=== PATIENT | male | born 1955 | race Caucasian/White ===

== ENCOUNTER 2018-03-22 07:39 | Outpatient (CLI) | payer MEDICAID, SELFPAY ==
[2018-03-22 08:33] LABS: Abs Immature Grans 0.01 k/cumm (0.0-0.09); Absolute Basophil Count 0.01 k/cumm (0.0-0.2); Absolute Eosinophil Count 0.01 k/cumm (0.0-0.7); Absolute Lymphocyte Count 2.21 k/cumm (1.2-3.4); Absolute Monocyte Count 0.69 k/cumm (0.11-0.7); Absolute Neutrophil Count 3.64 k/cumm (1.2-6.7); Basophils % 0.2; Eosinophils % 0.2; HCT 43.6 % (40.0-50.0); HGB 14.8 g/dL (13.5-17.5); Immature Grans % 0.2; Lymphocytes % 33.6; Mean Corp. HGB Concentration 33.9 g/dL (32.0-36.0); Mean Corpuscular Hemoglobin 33.1 pg (27.0-33.0); Mean Corpuscular Volume 97.5 fL (80-95); Mean Platelet Volume 11.1 fL (8.0-11.0); Monocytes % 10.5; Neutrophils % 55.3; Platelet Count 113 x1000/uL (130-400); RBC 4.47 m/cumm (4.50-6.00); RBC Distribution Width 13.6 % (11.8-14.1); White Blood Cell Count 6.57 k/cumm (4.4-10.8)
[2018-03-22 08:40] LABS: ALT 58 U/L (12-78); AST 21 U/L (15-37); Albumin 3.4 g/dL (3.4-5.0); Alkaline Phosphatase 76 U/L (46-116); Anion Gap 5.1 mmol/L (3-11); BUN 16 mg/dL (7-18); Bilirubin, Total 0.5 mg/dL (0.2-1.0); CO2 31.9 mmol/L (21.0-32.0); CREATININE 0.95 mg/dL (0.70-1.30); Calcium 8.7 mg/dL (8.5-10.1); Chloride 105 mmol/L (98-107); Glucose 104 mg/dL (70-100); Potassium 3.8 mmol/L (3.5-5.1); Sodium 142 mmol/L (136-145); Total Protein 7.2 g/dL (6.4-8.2)
== END 2018-03-22 07:40 ==
PROVIDERS: PCP Nurse Practitioner Family; Visit Provider Internal Medicine
DX: C90.00 Multiple myeloma not having achieved remission (principal)
CPT/HCPCS: 36415; 80053; 85025

== ENCOUNTER 2018-03-25 14:01 | Outpatient (CLI) | payer MEDICAID, SELFPAY ==
[2018-03-25 14:37] LABS: Abs Immature Grans 0.01 k/cumm (0.0-0.09); Absolute Basophil Count 0.01 k/cumm (0.0-0.2); Absolute Lymphocyte Count 2.61 k/cumm (1.2-3.4); Absolute Monocyte Count 0.88 k/cumm (0.11-0.7); Absolute Neutrophil Count 3.13 k/cumm (1.2-6.7); Basophils % 0.2; HCT 43.3 % (40.0-50.0); Immature Grans % 0.2; Lymphocytes % 39.3; Mean Corp. HGB Concentration 34.6 g/dL (32.0-36.0); Mean Corpuscular Hemoglobin 33.1 pg (27.0-33.0); Mean Corpuscular Volume 95.6 fL (80-95); Mean Platelet Volume 10.7 fL (8.0-11.0); Monocytes % 13.3; Platelet Count 115 x1000/uL (130-400); RBC 4.53 m/cumm (4.50-6.00); RBC Distribution Width 13.4 % (11.8-14.1); White Blood Cell Count 6.64 k/cumm (4.4-10.8)
[2018-03-25 15:00] LABS: ALT 46 U/L (12-78); AST 20 U/L (15-37); Albumin 3.4 g/dL (3.4-5.0); Alkaline Phosphatase 60 U/L (46-116); Anion Gap 9.3 mmol/L (3-11); BUN 15 mg/dL (7-18); Bilirubin, Total 0.8 mg/dL (0.2-1.0); CO2 27.7 mmol/L (21.0-32.0); CREATININE 1.02 mg/dL (0.70-1.30); Calcium 8.7 mg/dL (8.5-10.1); Chloride 105 mmol/L (98-107); Glucose 108 mg/dL (70-100); Sodium 142 mmol/L (136-145); Total Protein 6.8 g/dL (6.4-8.2)
[2018-03-27 10:43] LABS: IgA 15 mg/dL (85-499); IgG 1226 mg/dL (610-1616); IgM <12 mg/dL (35-242); Kappa Free Light Chain 0.47 mg/dl (0.33-1.94); Lambda Free Light Chain <0.44 mg/dl (0.57-2.63)
[2018-03-27 13:58] LABS: Albumin 55.2 % (55.8-66.1); Monoclonal Spike 13.3 %; Total Protein 6.5 g/dl (6.3-8.2)
[2018-03-28 15:06] LABS: Immunotyping, Serum Interpretation:
== END 2018-03-25 14:02 ==
PROVIDERS: PCP Nurse Practitioner Family; Visit Provider Internal Medicine
DX: C90.00 Multiple myeloma not having achieved remission (principal)
CPT/HCPCS: 36415; 80053; 82784; 83883; 84165; 85025; 86320

== ENCOUNTER 2018-03-29 07:09 | Outpatient (CLI) | payer MEDICAID, SELFPAY ==
[2018-03-29 07:43] LABS: Abs Immature Grans 0.01 k/cumm (0.0-0.09); Absolute Basophil Count 0.01 k/cumm (0.0-0.2); Absolute Eosinophil Count 0.05 k/cumm (0.0-0.7); Absolute Lymphocyte Count 2.24 k/cumm (1.2-3.4); Absolute Monocyte Count 0.66 k/cumm (0.11-0.7); Absolute Neutrophil Count 3.91 k/cumm (1.2-6.7); Basophils % 0.1; Eosinophils % 0.7; HGB 14.6 g/dL (13.5-17.5); Immature Grans % 0.1; Lymphocytes % 32.6; Mean Corp. HGB Concentration 34.8 g/dL (32.0-36.0); Mean Platelet Volume 10.4 fL (8.0-11.0); Monocytes % 9.6; Neutrophils % 56.9; Platelet Count 139 x1000/uL (130-400); RBC 4.42 m/cumm (4.50-6.00); RBC Distribution Width 13.1 % (11.8-14.1); White Blood Cell Count 6.88 k/cumm (4.4-10.8)
[2018-03-29 07:57] LABS: ALT 42 U/L (12-78); AST 22 U/L (15-37); Albumin 3.3 g/dL (3.4-5.0); Alkaline Phosphatase 74 U/L (46-116); Anion Gap 7.2 mmol/L (3-11); BUN 14 mg/dL (7-18); Bilirubin, Total 0.6 mg/dL (0.2-1.0); CO2 28.8 mmol/L (21.0-32.0); CREATININE 1.06 mg/dL (0.70-1.30); Calcium 8.7 mg/dL (8.5-10.1); Chloride 104 mmol/L (98-107); Glucose 142 mg/dL (70-100); Magnesium 1.8 mg/dL (1.8-2.4); Potassium 4.1 mmol/L (3.5-5.1); Sodium 140 mmol/L (136-145); Total Protein 7.1 g/dL (6.4-8.2)
== END 2018-03-29 07:10 ==
PROVIDERS: PCP Nurse Practitioner Family; Visit Provider Internal Medicine
DX: C90.00 Multiple myeloma not having achieved remission (principal)
CPT/HCPCS: 36415; 80053; 83735; 85025

== ENCOUNTER 2018-04-05 07:27 | Outpatient (CLI) | payer MEDICAID, SELFPAY ==
[2018-04-05 07:59] LABS: Abs Immature Grans 0.01 k/cumm (0.0-0.09); Absolute Basophil Count 0.01 k/cumm (0.0-0.2); Absolute Eosinophil Count 0.16 k/cumm (0.0-0.7); Absolute Lymphocyte Count 2.41 k/cumm (1.2-3.4); Absolute Monocyte Count 0.59 k/cumm (0.11-0.7); Absolute Neutrophil Count 3.13 k/cumm (1.2-6.7); Basophils % 0.2; Eosinophils % 2.5; HCT 41.5 % (40.0-50.0); HGB 14.4 g/dL (13.5-17.5); Immature Grans % 0.2; Lymphocytes % 38.2; Mean Corp. HGB Concentration 34.7 g/dL (32.0-36.0); Mean Corpuscular Hemoglobin 32.7 pg (27.0-33.0); Mean Corpuscular Volume 94.3 fL (80-95); Mean Platelet Volume 10.7 fL (8.0-11.0); Monocytes % 9.4; Neutrophils % 49.5; Platelet Count 126 x1000/uL (130-400); RBC Distribution Width 13.2 % (11.8-14.1); White Blood Cell Count 6.31 k/cumm (4.4-10.8)
[2018-04-05 08:10] LABS: ALT 34 U/L (12-78); AST 18 U/L (15-37); Albumin 3.3 g/dL (3.4-5.0); Alkaline Phosphatase 62 U/L (46-116); Anion Gap 7.5 mmol/L (3-11); BUN 20 mg/dL (7-18); Bilirubin, Total 0.8 mg/dL (0.2-1.0); CO2 28.5 mmol/L (21.0-32.0); CREATININE 1.03 mg/dL (0.70-1.30); Calcium 8.6 mg/dL (8.5-10.1); Chloride 104 mmol/L (98-107); Glucose 118 mg/dL (70-100); Magnesium 1.7 mg/dL (1.8-2.4); Potassium 3.8 mmol/L (3.5-5.1); Sodium 140 mmol/L (136-145); Total Protein 6.9 g/dL (6.4-8.2)
== END 2018-04-05 07:28 ==
PROVIDERS: PCP Nurse Practitioner Family; Visit Provider Internal Medicine
DX: C90.00 Multiple myeloma not having achieved remission (principal)
CPT/HCPCS: 36415; 80053; 83735; 85025

== ENCOUNTER 2018-04-19 07:27 | Outpatient (CLI) | payer MEDICAID, SELFPAY ==
[2018-04-19 07:54] LABS: Abs Immature Grans 0.01 k/cumm (0.0-0.09); Absolute Basophil Count 0.01 k/cumm (0.0-0.2); Absolute Eosinophil Count 0.14 k/cumm (0.0-0.7); Absolute Lymphocyte Count 1.85 k/cumm (1.2-3.4); Absolute Monocyte Count 0.49 k/cumm (0.11-0.7); Absolute Neutrophil Count 2.68 k/cumm (1.2-6.7); Basophils % 0.2; Eosinophils % 2.7; HCT 39.6 % (40.0-50.0); HGB 13.6 g/dL (13.5-17.5); Immature Grans % 0.2; Lymphocytes % 35.7; Mean Corp. HGB Concentration 34.3 g/dL (32.0-36.0); Mean Corpuscular Hemoglobin 32.9 pg (27.0-33.0); Mean Corpuscular Volume 95.7 fL (80-95); Mean Platelet Volume 11.1 fL (8.0-11.0); Monocytes % 9.5; Neutrophils % 51.7; Platelet Count 104 x1000/uL (130-400); RBC 4.14 m/cumm (4.50-6.00); White Blood Cell Count 5.18 k/cumm (4.4-10.8)
[2018-04-19 08:02] LABS: ALT 38 U/L (12-78); AST 25 U/L (15-37); Albumin 3.2 g/dL (3.4-5.0); Alkaline Phosphatase 65 U/L (46-116); Anion Gap 6.7 mmol/L (3-11); BUN 12 mg/dL (7-18); Bilirubin, Total 0.5 mg/dL (0.2-1.0); CO2 27.3 mmol/L (21.0-32.0); Calcium 8.1 mg/dL (8.5-10.1); Chloride 108 mmol/L (98-107); Glucose 116 mg/dL (70-100); Magnesium 1.9 mg/dL (1.8-2.4); Potassium 3.8 mmol/L (3.5-5.1); Sodium 142 mmol/L (136-145); Total Protein 6.7 g/dL (6.4-8.2)
== END 2018-04-19 07:28 ==
PROVIDERS: PCP Nurse Practitioner Family; Visit Provider Internal Medicine
DX: C90.00 Multiple myeloma not having achieved remission (principal)
CPT/HCPCS: 36415; 80053; 83735; 85025

== ENCOUNTER 2018-05-03 07:19 | Outpatient (CLI) | payer MEDICAID, SELFPAY ==
[2018-05-03 07:50] LABS: Abs Immature Grans 0.01 k/cumm (0.0-0.09); Absolute Basophil Count 0.01 k/cumm (0.0-0.2); Absolute Eosinophil Count 0.04 k/cumm (0.0-0.7); Absolute Lymphocyte Count 2.24 k/cumm (1.2-3.4); Absolute Monocyte Count 0.74 k/cumm (0.11-0.7); Absolute Neutrophil Count 3.79 k/cumm (1.2-6.7); Basophils % 0.1; Eosinophils % 0.6; HCT 44.6 % (40.0-50.0); HGB 15.3 g/dL (13.5-17.5); Immature Grans % 0.1; Lymphocytes % 32.8; Mean Corp. HGB Concentration 34.3 g/dL (32.0-36.0); Mean Corpuscular Hemoglobin 32.8 pg (27.0-33.0); Mean Corpuscular Volume 95.5 fL (80-95); Monocytes % 10.8; Neutrophils % 55.6; Platelet Count 147 x1000/uL (130-400); RBC 4.67 m/cumm (4.50-6.00); White Blood Cell Count 6.83 k/cumm (4.4-10.8)
[2018-05-03 08:04] LABS: ALT 47 U/L (12-78); AST 28 U/L (15-37); Albumin 3.6 g/dL (3.4-5.0); Alkaline Phosphatase 72 U/L (46-116); Anion Gap 9.4 mmol/L (3-11); BUN 12 mg/dL (7-18); Bilirubin, Total 1.2 mg/dL (0.2-1.0); CO2 27.6 mmol/L (21.0-32.0); CREATININE 0.94 mg/dL (0.70-1.30); Calcium 8.9 mg/dL (8.5-10.1); Chloride 105 mmol/L (98-107); Glucose 124 mg/dL (70-100); Potassium 4.2 mmol/L (3.5-5.1); Sodium 142 mmol/L (136-145); Total Protein 7.5 g/dL (6.4-8.2)
[2018-05-06 10:53] LABS: IgA 15 mg/dL (85-499); IgG 1219 mg/dL (610-1616); IgM <12 mg/dL (35-242); Kappa Free Light Chain 0.54 mg/dl (0.33-1.94); Lambda Free Light Chain <0.44 mg/dl (0.57-2.63)
[2018-05-06 14:58] LABS: Albumin 58.5 % (55.8-66.1); Monoclonal Spike 13.4 %; Total Protein 6.9 g/dl (6.3-8.2)
== END 2018-05-03 07:39 ==
PROVIDERS: PCP Nurse Practitioner Family; Visit Provider Internal Medicine
DX: C90.00 Multiple myeloma not having achieved remission (principal)
CPT/HCPCS: 36415; 80053; 82784; 83883; 84165; 85025

== ENCOUNTER 2018-05-17 07:04 | Outpatient (CLI) | payer MEDICAID, SELFPAY ==
[2018-05-17 07:36] LABS: Abs Immature Grans 0.02 k/cumm (0.0-0.09); Absolute Basophil Count 0.01 k/cumm (0.0-0.2); Absolute Eosinophil Count 0.07 k/cumm (0.0-0.7); Absolute Lymphocyte Count 2.27 k/cumm (1.2-3.4); Absolute Monocyte Count 1.08 k/cumm (0.11-0.7); Absolute Neutrophil Count 5.56 k/cumm (1.2-6.7); Basophils % 0.1; Eosinophils % 0.8; HCT 40.4 % (40.0-50.0); HGB 13.8 g/dL (13.5-17.5); Immature Grans % 0.2; Lymphocytes % 25.2; Mean Corp. HGB Concentration 34.2 g/dL (32.0-36.0); Mean Corpuscular Hemoglobin 33.2 pg (27.0-33.0); Mean Corpuscular Volume 97.1 fL (80-95); Mean Platelet Volume 11.3 fL (8.0-11.0); Neutrophils % 61.7; Platelet Count 127 x1000/uL (130-400); RBC 4.16 m/cumm (4.50-6.00); RBC Distribution Width 13.2 % (11.8-14.1); White Blood Cell Count 9.01 k/cumm (4.4-10.8)
[2018-05-17 07:44] LABS: ALT 38 U/L (12-78); AST 20 U/L (15-37); Albumin 3.3 g/dL (3.4-5.0); Alkaline Phosphatase 72 U/L (46-116); Anion Gap 8.2 mmol/L (3-11); BUN 15 mg/dL (7-18); Bilirubin, Total 0.7 mg/dL (0.2-1.0); CO2 26.8 mmol/L (21.0-32.0); CREATININE 0.95 mg/dL (0.70-1.30); Calcium 8.7 mg/dL (8.5-10.1); Chloride 106 mmol/L (98-107); Glucose 116 mg/dL (70-100); Magnesium 1.7 mg/dL (1.8-2.4); Potassium 3.8 mmol/L (3.5-5.1); Sodium 141 mmol/L (136-145); Total Protein 6.8 g/dL (6.4-8.2)
== END 2018-05-17 07:24 ==
PROVIDERS: PCP Nurse Practitioner Family; Visit Provider Internal Medicine
DX: C90.00 Multiple myeloma not having achieved remission (principal)
CPT/HCPCS: 36415; 80053; 83735; 85025

== ENCOUNTER 2018-05-31 07:04 | Outpatient (CLI) | payer MEDICAID, SELFPAY ==
[2018-05-31 07:37] LABS: Abs Immature Grans 0.01 k/cumm (0.0-0.09); Absolute Basophil Count 0.01 k/cumm (0.0-0.2); Absolute Eosinophil Count 0.23 k/cumm (0.0-0.7); Absolute Lymphocyte Count 1.76 k/cumm (1.2-3.4); Absolute Monocyte Count 0.63 k/cumm (0.11-0.7); Absolute Neutrophil Count 2.95 k/cumm (1.2-6.7); Basophils % 0.2; Eosinophils % 4.1; HCT 40.9 % (40.0-50.0); HGB 13.9 g/dL (13.5-17.5); Immature Grans % 0.2; Lymphocytes % 31.5; Mean Corpuscular Hemoglobin 33.1 pg (27.0-33.0); Mean Corpuscular Volume 97.4 fL (80-95); Mean Platelet Volume 10.5 fL (8.0-11.0); Monocytes % 11.3; Neutrophils % 52.7; Platelet Count 129 x1000/uL (130-400); RBC Distribution Width 13.1 % (11.8-14.1); White Blood Cell Count 5.59 k/cumm (4.4-10.8)
[2018-05-31 07:56] LABS: ALT 42 U/L (12-78); AST 28 U/L (15-37); Albumin 3.3 g/dL (3.4-5.0); Alkaline Phosphatase 70 U/L (46-116); Anion Gap 7.4 mmol/L (3-11); BUN 11 mg/dL (7-18); Bilirubin, Total 0.5 mg/dL (0.2-1.0); CO2 28.6 mmol/L (21.0-32.0); CREATININE 0.84 mg/dL (0.70-1.30); Calcium 8.7 mg/dL (8.5-10.1); Chloride 106 mmol/L (98-107); Glucose 123 mg/dL (70-100); Magnesium 1.7 mg/dL (1.8-2.4); Potassium 3.9 mmol/L (3.5-5.1); Sodium 142 mmol/L (136-145); Total Protein 6.8 g/dL (6.4-8.2)
== END 2018-05-31 07:24 ==
PROVIDERS: PCP Nurse Practitioner Family; Visit Provider Internal Medicine
DX: C90.00 Multiple myeloma not having achieved remission (principal)
CPT/HCPCS: 36415; 80053; 83735; 85025

== ENCOUNTER 2018-06-21 07:10 | Outpatient (CLI) | payer MEDICAID, SELFPAY ==
[2018-06-21 07:37] LABS: Absolute Basophil Count 0.01 k/cumm (0.0-0.2); Absolute Eosinophil Count 0.22 k/cumm (0.0-0.7); Absolute Lymphocyte Count 1.97 k/cumm (1.2-3.4); Absolute Neutrophil Count 3.01 k/cumm (1.2-6.7); Basophils % 0.2; Eosinophils % 3.7; HCT 43.6 % (40.0-50.0); HGB 15.3 g/dL (13.5-17.5); Lymphocytes % 33.3; Mean Corp. HGB Concentration 35.1 g/dL (32.0-36.0); Mean Corpuscular Hemoglobin 33.1 pg (27.0-33.0); Mean Corpuscular Volume 94.4 fL (80-95); Mean Platelet Volume 10.9 fL (8.0-11.0); Monocytes % 11.8; Platelet Count 142 x1000/uL (130-400); RBC 4.62 m/cumm (4.50-6.00); RBC Distribution Width 12.2 % (11.8-14.1); White Blood Cell Count 5.91 k/cumm (4.4-10.8)
[2018-06-21 07:58] LABS: ALT 48 U/L (12-78); AST 32 U/L (15-37); Albumin 3.5 g/dL (3.4-5.0); Alkaline Phosphatase 76 U/L (46-116); Anion Gap 9.1 mmol/L (3-11); BUN 15 mg/dL (7-18); Bilirubin, Total 0.7 mg/dL (0.2-1.0); CO2 27.9 mmol/L (21.0-32.0); Calcium 9.2 mg/dL (8.5-10.1); Chloride 103 mmol/L (98-107); Glucose 126 mg/dL (70-100); Magnesium 1.7 mg/dL (1.8-2.4); Potassium 4.3 mmol/L (3.5-5.1); Sodium 140 mmol/L (136-145); Total Protein 7.2 g/dL (6.4-8.2)
== END 2018-06-21 07:30 ==
PROVIDERS: PCP Nurse Practitioner Family; Visit Provider Internal Medicine
DX: C90.00 Multiple myeloma not having achieved remission (principal)
CPT/HCPCS: 36415; 80053; 83735; 85025

== ENCOUNTER 2018-07-05 07:07 | Outpatient (CLI) | payer MEDICAID, SELFPAY ==
[2018-07-05 07:44] LABS: Abs Immature Grans 0.01 k/cumm (0.0-0.09); Absolute Basophil Count 0.01 k/cumm (0.0-0.2); Absolute Lymphocyte Count 1.91 k/cumm (1.2-3.4); Absolute Monocyte Count 0.69 k/cumm (0.11-0.7); Absolute Neutrophil Count 3.62 k/cumm (1.2-6.7); Basophils % 0.2; Eosinophils % 3.1; HCT 43.8 % (40.0-50.0); HGB 15.1 g/dL (13.5-17.5); Immature Grans % 0.2; Lymphocytes % 29.7; Mean Corp. HGB Concentration 34.5 g/dL (32.0-36.0); Mean Corpuscular Volume 95.6 fL (80-95); Mean Platelet Volume 11.4 fL (8.0-11.0); Monocytes % 10.7; Neutrophils % 56.1; Platelet Count 144 x1000/uL (130-400); RBC 4.58 m/cumm (4.50-6.00); RBC Distribution Width 12.4 % (11.8-14.1); White Blood Cell Count 6.44 k/cumm (4.4-10.8)
[2018-07-05 07:54] LABS: ALT 59 U/L (12-78); AST 36 U/L (15-37); Albumin 3.4 g/dL (3.4-5.0); Alkaline Phosphatase 73 U/L (46-116); Anion Gap 6.3 mmol/L (3-11); BUN 12 mg/dL (7-18); Bilirubin, Total 0.4 mg/dL (0.2-1.0); CO2 26.7 mmol/L (21.0-32.0); CREATININE 0.97 mg/dL (0.70-1.30); Calcium 8.9 mg/dL (8.5-10.1); Chloride 105 mmol/L (98-107); Glucose 107 mg/dL (70-100); Magnesium 1.8 mg/dL (1.8-2.4); Sodium 138 mmol/L (136-145); Total Protein 7.1 g/dL (6.4-8.2)
[2018-07-08 10:30] LABS: Vitamin D 25 Total 33.3 ng/ml (30-100)
== END 2018-07-05 07:27 ==
PROVIDERS: PCP Nurse Practitioner Family; Visit Provider Internal Medicine
DX: E55.9 Vitamin D deficiency, unspecified (principal); C90.00 Multiple myeloma not having achieved remission
CPT/HCPCS: 36415; 80053; 82306; 83735; 85025

== ENCOUNTER 2018-07-19 07:13 | Outpatient (CLI) | payer MEDICAID, SELFPAY ==
[2018-07-19 07:37] LABS: Abs Immature Grans 0.02 k/cumm (0.0-0.09); Absolute Basophil Count 0.02 k/cumm (0.0-0.2); Absolute Eosinophil Count 0.14 k/cumm (0.0-0.7); Absolute Monocyte Count 0.47 k/cumm (0.11-0.7); Basophils % 0.3; Eosinophils % 2.1; HCT 44.1 % (40.0-50.0); HGB 15.1 g/dL (13.5-17.5); Immature Grans % 0.3; Lymphocytes % 22.6; Mean Corp. HGB Concentration 34.2 g/dL (32.0-36.0); Mean Corpuscular Hemoglobin 32.2 pg (27.0-33.0); Mean Platelet Volume 11.6 fL (8.0-11.0); Monocytes % 7.1; Neutrophils % 67.6; Platelet Count 136 x1000/uL (130-400); RBC 4.69 m/cumm (4.50-6.00); RBC Distribution Width 12.5 % (11.8-14.1); White Blood Cell Count 6.65 k/cumm (4.4-10.8)
[2018-07-19 08:01] LABS: ALT 56 U/L (12-78); AST 32 U/L (15-37); Albumin 3.5 g/dL (3.4-5.0); Alkaline Phosphatase 69 U/L (46-116); Anion Gap 9.9 mmol/L (3-11); BUN 10 mg/dL (7-18); Bilirubin, Total 0.6 mg/dL (0.2-1.0); CO2 25.1 mmol/L (21.0-32.0); CREATININE 0.96 mg/dL (0.70-1.30); Calcium 8.9 mg/dL (8.5-10.1); Chloride 105 mmol/L (98-107); Glucose 134 mg/dL (70-100); Magnesium 1.8 mg/dL (1.8-2.4); Potassium 3.9 mmol/L (3.5-5.1); Sodium 140 mmol/L (136-145); Total Protein 7.2 g/dL (6.4-8.2)
== END 2018-07-19 07:33 ==
PROVIDERS: PCP Nurse Practitioner Family; Visit Provider Internal Medicine
DX: C90.00 Multiple myeloma not having achieved remission (principal)
CPT/HCPCS: 36415; 80053; 83735; 85025

== ENCOUNTER 2018-08-02 07:04 | Outpatient (CLI) | payer MEDICAID, SELFPAY ==
[2018-08-02 07:40] LABS: Abs Immature Grans 0.01 k/cumm (0.0-0.09); Absolute Basophil Count 0.01 k/cumm (0.0-0.2); Absolute Lymphocyte Count 2.13 k/cumm (1.2-3.4); Absolute Monocyte Count 0.74 k/cumm (0.11-0.7); Absolute Neutrophil Count 3.88 k/cumm (1.2-6.7); Basophils % 0.1; Eosinophils % 2.9; HCT 45.5 % (40.0-50.0); HGB 15.6 g/dL (13.5-17.5); Immature Grans % 0.1; Lymphocytes % 30.6; Mean Corp. HGB Concentration 34.3 g/dL (32.0-36.0); Mean Corpuscular Hemoglobin 31.9 pg (27.0-33.0); Mean Platelet Volume 11.5 fL (8.0-11.0); Monocytes % 10.6; Neutrophils % 55.7; Platelet Count 142 x1000/uL (130-400); RBC 4.89 m/cumm (4.50-6.00); RBC Distribution Width 12.6 % (11.8-14.1); White Blood Cell Count 6.97 k/cumm (4.4-10.8)
[2018-08-02 07:45] LABS: ALT 65 U/L (12-78); AST 36 U/L (15-37); Albumin 3.4 g/dL (3.4-5.0); Alkaline Phosphatase 80 U/L (46-116); Anion Gap 9.5 mmol/L (3-11); BUN 13 mg/dL (7-18); Bilirubin, Total 0.7 mg/dL (0.2-1.0); CO2 27.5 mmol/L (21.0-32.0); Calcium 9.2 mg/dL (8.5-10.1); Chloride 105 mmol/L (98-107); Glucose 120 mg/dL (70-100); Magnesium 1.8 mg/dL (1.8-2.4); Sodium 142 mmol/L (136-145); Total Protein 7.2 g/dL (6.4-8.2)
== END 2018-08-02 07:24 ==
PROVIDERS: PCP Nurse Practitioner Family; Visit Provider Internal Medicine
DX: C90.00 Multiple myeloma not having achieved remission (principal)
CPT/HCPCS: 36415; 80053; 83735; 85025

== ENCOUNTER 2018-08-30 07:02 | Outpatient (CLI) | payer MEDICAID, SELFPAY ==
[2018-08-30 07:28] LABS: Abs Immature Grans 0.02 k/cumm (0.0-0.09); Absolute Basophil Count 0.02 k/cumm (0.0-0.2); Absolute Lymphocyte Count 2.23 k/cumm (1.2-3.4); Absolute Monocyte Count 0.69 k/cumm (0.11-0.7); Absolute Neutrophil Count 3.03 k/cumm (1.2-6.7); Basophils % 0.3; Eosinophils % 3.2; HCT 42.6 % (40.0-50.0); HGB 14.5 g/dL (13.5-17.5); Immature Grans % 0.3; Mean Platelet Volume 11.3 fL (8.0-11.0); Monocytes % 11.1; Neutrophils % 49.1; Platelet Count 147 x1000/uL (130-400); RBC 4.53 m/cumm (4.50-6.00); RBC Distribution Width 13.4 % (11.8-14.1); White Blood Cell Count 6.19 k/cumm (4.4-10.8)
[2018-08-30 07:40] LABS: ALT 49 U/L (12-78); AST 29 U/L (15-37); Albumin 3.2 g/dL (3.4-5.0); Alkaline Phosphatase 80 U/L (46-116); Anion Gap 6.6 mmol/L (3-11); BUN 13 mg/dL (7-18); Bilirubin, Total 0.4 mg/dL (0.2-1.0); CO2 29.4 mmol/L (21.0-32.0); Calcium 9.1 mg/dL (8.5-10.1); Chloride 106 mmol/L (98-107); Glucose 110 mg/dL (70-100); Magnesium 1.8 mg/dL (1.8-2.4); Potassium 4.1 mmol/L (3.5-5.1); Sodium 142 mmol/L (136-145); Total Protein 6.7 g/dL (6.4-8.2)
== END 2018-08-30 07:22 ==
PROVIDERS: PCP Nurse Practitioner Family; Visit Provider Internal Medicine
DX: C90.00 Multiple myeloma not having achieved remission (principal)
CPT/HCPCS: 36415; 80053; 83735; 85025

== ENCOUNTER 2018-09-27 06:57 | Outpatient (CLI) | payer MEDICAID, SELFPAY ==
[2018-09-27 07:30] LABS: Abs Immature Grans 0.01 k/cumm (0.0-0.09); Absolute Basophil Count 0.03 k/cumm (0.0-0.2); Absolute Lymphocyte Count 1.79 k/cumm (1.2-3.4); Absolute Monocyte Count 0.54 k/cumm (0.11-0.7); Absolute Neutrophil Count 3.75 k/cumm (1.2-6.7); Basophils % 0.5; Eosinophils % 3.2; HCT 46.6 % (40.0-50.0); HGB 15.7 g/dL (13.5-17.5); Immature Grans % 0.2; Lymphocytes % 28.3; Mean Corp. HGB Concentration 33.7 g/dL (32.0-36.0); Mean Corpuscular Hemoglobin 31.4 pg (27.0-33.0); Mean Corpuscular Volume 93.2 fL (80-95); Monocytes % 8.5; Neutrophils % 59.3; Platelet Count 143 x1000/uL (130-400); RBC Distribution Width 13.6 % (11.8-14.1); White Blood Cell Count 6.32 k/cumm (4.4-10.8)
[2018-09-27 07:43] LABS: ALT 44 U/L (12-78); AST 27 U/L (15-37); Albumin 3.5 g/dL (3.4-5.0); Alkaline Phosphatase 78 U/L (46-116); Anion Gap 4.8 mmol/L (3-11); BUN 10 mg/dL (7-18); Bilirubin, Total 0.7 mg/dL (0.2-1.0); CO2 29.2 mmol/L (21.0-32.0); CREATININE 1.09 mg/dL (0.70-1.30); Chloride 105 mmol/L (98-107); Glucose 182 mg/dL (70-100); Magnesium 1.7 mg/dL (1.8-2.4); Potassium 3.9 mmol/L (3.5-5.1); Sodium 139 mmol/L (136-145); Total Protein 7.5 g/dL (6.4-8.2)
== END 2018-09-27 07:17 ==
PROVIDERS: PCP Nurse Practitioner Family; Visit Provider Internal Medicine
DX: C90.00 Multiple myeloma not having achieved remission (principal)
CPT/HCPCS: 36415; 80053; 83735; 85025

== ENCOUNTER 2018-10-24 07:05 | Outpatient (CLI) | payer MEDICAID, SELFPAY ==
[2018-10-24 07:29] LABS: Absolute Basophil Count 0.01 k/cumm (0.0-0.2); Absolute Eosinophil Count 0.13 k/cumm (0.0-0.7); Absolute Lymphocyte Count 1.58 k/cumm (1.2-3.4); Absolute Neutrophil Count 3.06 k/cumm (1.2-6.7); Basophils % 0.2; Eosinophils % 2.5; HCT 46.8 % (40.0-50.0); Lymphocytes % 29.9; Mean Corp. HGB Concentration 34.2 g/dL (32.0-36.0); Mean Corpuscular Hemoglobin 31.4 pg (27.0-33.0); Mean Corpuscular Volume 91.9 fL (80-95); Mean Platelet Volume 11.7 fL (8.0-11.0); Monocytes % 9.5; Neutrophils % 57.9; Platelet Count 141 x1000/uL (130-400); RBC 5.09 m/cumm (4.50-6.00); RBC Distribution Width 13.5 % (11.8-14.1); White Blood Cell Count 5.28 k/cumm (4.4-10.8)
[2018-10-24 07:50] LABS: ALT 57 U/L (12-78); AST 34 U/L (15-37); Albumin 3.7 g/dL (3.4-5.0); Alkaline Phosphatase 85 U/L (46-116); Anion Gap 8.4 mmol/L (3-11); BUN 8 mg/dL (7-18); Bilirubin, Total 0.8 mg/dL (0.2-1.0); CO2 27.6 mmol/L (21.0-32.0); CREATININE 0.98 mg/dL (0.70-1.30); Chloride 105 mmol/L (98-107); Glucose 120 mg/dL (70-100); Magnesium 1.6 mg/dL (1.8-2.4); Potassium 4.1 mmol/L (3.5-5.1); Sodium 141 mmol/L (136-145); Total Protein 7.6 g/dL (6.4-8.2)
== END 2018-10-24 07:25 ==
PROVIDERS: PCP Nurse Practitioner Family; Visit Provider Internal Medicine
DX: C90.00 Multiple myeloma not having achieved remission (principal)
CPT/HCPCS: 36415; 80053; 83735; 85025

== ENCOUNTER 2018-11-22 07:06 | Outpatient (CLI) | payer MEDICAID, SELFPAY ==
[2018-11-22 07:22] LABS: Absolute Basophil Count 0.01 k/cumm (0.0-0.2); Absolute Lymphocyte Count 2.58 k/cumm (1.2-3.4); Absolute Monocyte Count 0.78 k/cumm (0.11-0.7); Absolute Neutrophil Count 3.46 k/cumm (1.2-6.7); Basophils % 0.1; HCT 44.2 % (40.0-50.0); Lymphocytes % 37.8; Mean Corp. HGB Concentration 33.9 g/dL (32.0-36.0); Mean Corpuscular Hemoglobin 31.7 pg (27.0-33.0); Mean Corpuscular Volume 93.4 fL (80-95); Mean Platelet Volume 11.9 fL (8.0-11.0); Monocytes % 11.4; Neutrophils % 50.7; Platelet Count 145 x1000/uL (130-400); RBC 4.73 m/cumm (4.50-6.00); RBC Distribution Width 13.2 % (11.8-14.1); White Blood Cell Count 6.83 k/cumm (4.4-10.8)
[2018-11-22 07:41] LABS: ALT 58 U/L (12-78); AST 36 U/L (15-37); Albumin 3.4 g/dL (3.4-5.0); Alkaline Phosphatase 84 U/L (46-116); Anion Gap 8.1 mmol/L (3-11); BUN 11 mg/dL (7-18); Bilirubin, Total 0.5 mg/dL (0.2-1.0); CO2 26.9 mmol/L (21.0-32.0); CREATININE 0.92 mg/dL (0.70-1.30); Calcium 8.7 mg/dL (8.5-10.1); Chloride 104 mmol/L (98-107); Glucose 104 mg/dL (70-100); Magnesium 2.1 mg/dL (1.8-2.4); Sodium 139 mmol/L (136-145); Total Protein 7.2 g/dL (6.4-8.2)
== END 2018-11-22 07:26 ==
PROVIDERS: PCP Nurse Practitioner Family; Visit Provider Internal Medicine
DX: C90.00 Multiple myeloma not having achieved remission (principal)
CPT/HCPCS: 36415; 80053; 83735; 85025

== ENCOUNTER 2018-12-20 07:06 | Outpatient (CLI) | payer MEDICAID, SELFPAY ==
[2018-12-20 07:29] LABS: Abs Immature Grans 0.01 k/cumm (0.0-0.09); Absolute Basophil Count 0.01 k/cumm (0.0-0.2); Absolute Eosinophil Count 0.27 k/cumm (0.0-0.7); Absolute Monocyte Count 0.72 k/cumm (0.11-0.7); Absolute Neutrophil Count 3.28 k/cumm (1.2-6.7); Basophils % 0.1; HGB 14.6 g/dL (13.5-17.5); Immature Grans % 0.1; Lymphocytes % 35.9; Mean Corpuscular Hemoglobin 31.7 pg (27.0-33.0); Mean Corpuscular Volume 93.5 fL (80-95); Mean Platelet Volume 11.6 fL (8.0-11.0); Monocytes % 10.8; Neutrophils % 49.1; Platelet Count 147 x1000/uL (130-400); RBC Distribution Width 13.1 % (11.8-14.1); White Blood Cell Count 6.69 k/cumm (4.4-10.8)
[2018-12-20 07:46] LABS: ALT 47 U/L (12-78); AST 26 U/L (15-37); Albumin 3.3 g/dL (3.4-5.0); Alkaline Phosphatase 82 U/L (46-116); Anion Gap 3.8 mmol/L (3-11); BUN 12 mg/dL (7-18); Bilirubin, Total 0.4 mg/dL (0.2-1.0); CO2 31.2 mmol/L (21.0-32.0); CREATININE 0.94 mg/dL (0.70-1.30); Calcium 8.8 mg/dL (8.5-10.1); Chloride 105 mmol/L (98-107); Glucose 123 mg/dL (70-100); Magnesium 1.8 mg/dL (1.8-2.4); Potassium 4.1 mmol/L (3.5-5.1); Sodium 140 mmol/L (136-145); Total Protein 7.1 g/dL (6.4-8.2)
== END 2018-12-20 07:26 ==
PROVIDERS: PCP Nurse Practitioner Family; Visit Provider Internal Medicine
DX: C90.00 Multiple myeloma not having achieved remission (principal)
CPT/HCPCS: 36415; 80053; 83735; 85025

== ENCOUNTER 2018-12-30 07:41 | Day surgery (SDC) | payer MEDICAID, SELFPAY ==
--- NOTE | 2018-12-29 17:48 | W.PIPPEYE ---
History of Present Illness Chief Complaint: Progressive decreased vision, left eye Narrative: The patient is a 63-year-old male with history of progressive decreased vision over the past several months in his left eye. On examination he was noted to have moderate nuclear with early posterior subcapsular cataract in the left eye with visual acuity of 20/60. The option of cataract surgery was offered to the patient and he wished to proceed. NOTE: The Chief Complaint, HPI, Past Medical History, Past Surgical History, Family History, Social History, Medications, and complete Ophthalmic Exam with detailed Assessment and Plan have already been documented in the patient's outpatient ophthalmic record and are not covered again in detail here. REPLACED BY [facility] Social History Smoking/Tobacco Use Status: Never Alcohol Intake: former Drug use: Occasionally Substance use type: marijuana Details: past hx IV drug use/ in remission Caregiver/Support person: No Communication Needs: None Pets and animals: No Current gender identity: male What type of physical activity do you participate in: none Seatbelt use: always Water heater temp set <120 deg: Yes Working smoke detector in home: Yes Fire extinguisher in home: Yes Carbon monox detector in home: Yes Firearms in home: Yes Firearms unloaded and locked: Yes Do you feel safe at home: Yes Do you feel safe in your relationship?: Yes Meds Home Medications Medication Instructions Recorded Confirmed Type zolpidem [Ambien] 10 mg PO HS tab-cap 05/02/17 12/25/18 History polyethylene glycol 3350 [Glycolax] 17 g PO DAILY PRN #1 bottle 09/07/17 12/25/18 History sennosides-docusate sodium 1 ea PO BID PRN #180 tab-cap 09/07/17 12/25/18 History [Senna-Docusate Sodium Tablet] aspirin 81 mg PO DAILY 0 Days #90 tab-cap 10/31/17 12/06/18 Rx cholecalciferol (vitamin D3) 2,000 unit PO DAILY #90 tab-cap 10/31/17 12/25/18 Rx [Vitamin D3] guaifenesin 600 - 1,200 mg PO Q12H PRN #60 10/31/17 12/25/18 Rx tab-cap MDD 2400 MG chlorhexidine gluconate 1 film TOPICAL DAILY #1 bottle 01/31/18 12/06/18 Rx melatonin 10 mg PO HS PRN #90 tab-cap 01/31/18 12/25/18 History magnesium oxide 400 mg (241.3 mg 800 mg PO DAILY #180 tab-cap 05/10/18 12/25/18 Rx magnesium) tablet clindamycin phosphate 1 % topical 1 applic TP BID PRN #60 ml 06/13/18 12/25/18 Rx solution acyclovir 400 mg tablet 400 mg PO BID tab 06/17/18 12/25/18 History enalapril maleate 20 mg tablet 20 mg PO DAILY #90 tab-cap 09/02/18 12/25/18 Rx fluticasone propionate 50 1 - 2 spray NS DAILY PRN #1 unit 12/23/18 12/25/18 Rx mcg/actuation nasal spray,suspension mupirocin 1 film TOPICAL TID PRN 12/25/18 12/25/18 History Allergies Allergy/AdvReac Type Severity Reaction Status Date / Time Sulfa (Sulfonamide Allergy Unknown told rx as Unverified 12/25/18 11:24 Antibiotics) an infant Exam OCULAR EXAM:: Most recent ocular examination is significant for visual acuity measuring 20/60 OD, 20/60 OS. Best corrected vision is 20/20 OD, 20/25 in the left eye. Intraocular pressure 16 OD, 17 OS. Pupils equal, round, and reactive without afferent pupillary defect extraocular motility is normal. Slit-lamp examination is significant for pupils dilating to 7 mm OU. 2+ nuclear cataract OU with 1+ posterior subcapsular cataract OS. Dilated funduscopic examination shows disc cupping of 0.4 OU with good color. The optic nerves have good perfusion and normal color. The retinal vasculature is normal without significant tortuosity or abnormality. The maculas are normal in appearance with normal contour and foveal reflex appropriate for age. The peripheral retina and vitreous are normal. BRIGHTNESS ACUITY TESTING (BAT):: Brightness acuity testing of the left eye office is 20/25. Low is 20/60. On the medium and high setting is 20/70. Assessment and Plan (1) Posterior subcapsular age-related cataract of left eye: Current visit: No Status: Acute Assessment: Visually significant cataract, left eye. Plan: Cataract extraction with intraocular lens implantation, left eye (2) Nuclear sclerotic cataract of left eye: Current visit: No Status: Acute Assessment: Visually significant cataract, left eye. Plan: Cataract extraction with intraocular lens implantation, left eye Note: NOTE:: The details of the planned surgery, including the risks, indications,limitations,expectations,outcome and possible complications were explained to the patient. The patient understands the complications including, but not limited to: infection, hemorrhage, posterior dislocation of the lens or nuclear fragments which may require the intervention of a vitreoretinal surgeon, possible loss of the eye, or from anesthetic complications. The patient has been made aware of the option of not having surgery, that vision following surgery may not be equal to that prior to surgery, and that the planned surgery may not achieve the intended results. Following this discussion, which the patient appeared to understand, the patient wishes to proceed with cataract surgery with lens implantation of the affected eye to improve and maximize vision.
--- NOTE | 2018-12-30 07:20 | W.PM.DSUDISC ---
Discharge Plan Disposition Patient Disposition: HOME Condition: Stable Discharge Details Attending Provider: Joshua Griffin Primary Care Provider: Olga Ramos Home Meds and New Rx's Prescriptions: No Action clindamycin phosphate 1 % solution 1 applic TP BID PRN (Reason: recurrent skin infection) Qty: 60 RF: 0 zolpidem [Ambien] 10 MG tablet 10 mg PO HS RF: 0 sennosides-docusate sodium [Senna with Docusate Sodium] 1 EACH tablet 1 ea PO BID PRNQty: 180 RF: 3 polyethylene glycol 3350 [GlycoLax] 527 GM powder 17 g PO DAILY PRNQty: 1 RF: 5 aspirin 81 MG tablet,delayed release (DR/EC) 81 mg PO DAILY 0 Days Qty: 90 RF: 3 cholecalciferol (vitamin D3) [Vitamin D3] 2,000 UNIT tablet 2,000 unit PO DAILY Qty: 90 RF: 3 guaifenesin 600 MG tablet extended release 12hr 600 - 1,200 mg PO Q12H PRN MDD 2400 MG Qty: 60 RF: 0 chlorhexidine gluconate 3,800 ML liquid 1 film Topical DAILY Qty: 1 RF: 0 melatonin 10 MG tablet 10 mg PO HS PRNQty: 90 RF: 3 magnesium oxide 400 mg (241.3 mg magnesium) tablet 800 mg PO DAILY Qty: 180 RF: 3 acyclovir 400 mg tablet 400 mg PO BID RF: 0 enalapril maleate 20 mg tablet 20 mg PO DAILY Qty: 90 RF: 3 fluticasone propionate [Flonase Allergy Relief] 50 mcg/actuation spray,suspension 1 - 2 spray NS DAILY PRN (Reason: nasal congestion) Qty: 1 RF: 6 mupirocin 22 GM ointment 1 film Topical TID PRNRF: 0 Discharge Instructions Stand Alone Forms: Post-op Topical Cataract, Geoff Ganey (DSU) Discharge Orders Discharge Orders: Discharge Order (Routine); Ordered 12/30/18 Ordered By: Joshua Griffin DS: Diagnosis Discharge Diagnosis (1) Posterior subcapsular age-related cataract of left eye: Status: Resolved (2) Nuclear sclerotic cataract of left eye: Status: Resolved (3) Status post cataract extraction and insertion of intraocular lens of left eye: Status: Chronic
--- NOTE | 2018-12-30 07:21 | W.PM.OP ---
Date of service: 12/30/18 Time of Service: 09:37 Operative Note PRE-OP DIAGNOSIS: Cataract, left eye POST-OP DIAGNOSIS: same PROCEDURE: Cataract extraction using phacoemulsification with intraocular lens implant, left eye SURGEON: Joshua Griffin ANESTHESIA: MAC and local (sub-tenon's anesthetic infiltration) PATHOLOGY: none sent COMPLICATIONS: None Patient was transported to: same day Patient's condition: stable Implants: [employer] / [employer] Tecnis ZCB00 Indications: Progressive decreased vision due to cataract, left eye Procedure Description: CATARACT SURGERY OPERATIVE REPORT PREOPERATIVE DIAGNOSIS: Nuclear/posterior subcapsular cataract, left eye POSTOPERATIVE DIAGNOSIS: Same OPERATION: Cataract extraction using phacoemulsification with posterior chamber intraocular lens implant, left eye. IOL: IOL Program Host/Model: [employer] / CAROLINE Tecnis ZCB00 IOL Power: + 19.50 diopters IOL Serial Number: [id number] Optic Diameter: 6.0mm Haptic/Overall Diameter: 13.0mm PHACO INFO: [employer] Part[employer]erson Vision System with OZil and Active [employer]uidics Cumulative Dispersed Energy (CDE): 10.51 seconds SURGEON: Joshua Griffin MD, IAIN ANESTHESIA: Monitored Anesthesia Care (MAC), with local sub-tenon's anesthetic infiltration COMPLICATIONS: None SPECIMENS: None INDICATIONS FOR PROCEDURE: The patient is a 63-year-old male with history of diminished visual acuity in his left eye secondary to the development of nuclear and posterior subcapsular cataract. The option of cataract surgery was offered to the patient and he felt he was symptomatic enough that he wished to proceed. PROCEDURE: The correct surgical eye was identified and marked as the left eye and the pupil was dilated in the preoperative area using mydriatics and cycloplegics. The dilated pupil size was 7.0 mm. Oral sedation was administered in the form of an Imprimis MKO Melt (midazolam 3mg/ketamine 25mg/ondansetron 2mg). The patient was brought to the operating room where cardiopulmonary monitoring was instituted and surgical time-out was performed, confirming the correct operative eye and IOL power. Topical anesthesia was administered and ophthalmic povidone-iodine 5% was instilled into the conjunctival fornices. Lidocaine gel was applied to the cornea and the gerald-ocular area was prepped with Betadine 10% solution and draped in the usual sterile fashion for intraocular surgery, including an aperture drape. A Tegaderm transparent film dressing was cut in half and used to cover the lashes and lid margins. Care was taken to sequester the lashes and lid margins under the Tegaderm dressing. A lid speculum was placed between the lids of the operative eye and the Jefferson-Flaca operating microscope was maneuvered into position. Kristofer scissors were then used to make a conjunctival buttonhole approximately 6mm posterior to the limbus in the inferonasal quadrant. Blunt dissection was carried out to expose bare sclera, and a blunt-tipped sub-tenon?s anesthesia cannula was introduced and passed posteriorly along the globe where non-preserved plain lidocaine was injected into posterior sub-Tenon?s space. A sideport knife was used to make a paracentesis port superior/superiortemporal, and the anterior chamber was filled with Healon GV. A 2.4mm keratome knife was used to create a half-thickness groove at the limbus and then to construct a three-plane near-clear corneal tunnel extending 2.0mm into clear cornea in the temporal position. . A flap was raised on the anterior capsule and capsulorhexis forceps were used to complete a continuous curvilinear capsulorhexis of 5.5 mm. Balanced salt solution was then used to perform cortical cleaving hydrodissection and nuclear hydrodelineation until the lens could be freely rotated within the capsular bag. The lens nucleus was then disassembled and removed within the capsular bag and iris plane using phacoemulsification. Residual cortical material was removed using the 45-degree angled silicone I/A tip with 0.3mm port. The posterior capsule was carefully polished to remove as much residual lens epithelial cells as safely possible. The capsular bag was then inflated and the anterior chamber deepened with viscoelastic. The lens implant described above was inserted into the capsular bag using the CAROLINE [place] Injector. A Kuglen hook was used to dial the IOL into position. Residual viscoelastic was then removed first from posterior to the IOL, then from the anterior chamber using the I/A handpiece. The lens implant was noted to center nicely within the capsular bag. The incisions were stromally hydrated, and the anterior chamber was reformed using BSS. Then 0.4cc of moxifloxacin 1.5mg/ml were injected into the capsular bag and anterior chamber. The incisions were checked with a Weck spear and found to be secure. Several drops of ophthalmic povidone-iodine 5% were then applied to the eye followed by two drops of Imprimis combination prednisolone/gatifloxacin/bromfenac solution. The drapes were removed and a clear plastic protective eye shield was placed over the eye. The patient was then returned to [facility] in stable condition.
[2018-12-30 07:58] VITALS: BP 128/79; PULSE 74; RESP 16; TEMP 36.5; O2SAT 94
[2018-12-30] MEDS: Tetracaine 0.5% 4 ML BTL OS ×4 (08:14→09:02)
[2018-12-30] MEDS: Tropicam./Phenyleph. (1/2.5%) 5 ML BTL OS ×3 (08:15→08:24)
[2018-12-30] MEDS: Povidone-Iodine Ophth 30 ML BTL ×2 (09:02→09:27)
[2018-12-30] MEDS: Lidocaine 2% Jelly 6 ML SYR (09:02)
[2018-12-30] MEDS: Balanced Salt Soln.-PLUS 500 ML BAG (09:09)
[2018-12-30] MEDS: Lidocaine 1% Pres-Free 5 ML VIAL (09:09)
[2018-12-30 09:50] VITALS: BP 112/74; PULSE 69; RESP 16; TEMP 36.6; O2SAT 94
== END 2018-12-30 10:10 | disposition home or self-care (01) ==
LOC: SUR 07:42
PROVIDERS: PCP Nurse Practitioner Family; Visit Provider Ophthalmology
PROC: (CPT 66984; principal; 2018-12-30 09:30)
DX: H25.812 Combined forms of age-related cataract, left eye (principal); I10 Essential (primary) hypertension; G47.33 Obstructive sleep apnea (adult) (pediatric)
CPT/HCPCS: 66984; V2632

== ENCOUNTER 2019-01-17 07:19 | Outpatient (CLI) | payer MEDICAID, SELFPAY ==
[2019-01-17 08:07] LABS: Abs Immature Grans 0.01 k/cumm (0.0-0.09); Absolute Basophil Count 0.02 k/cumm (0.0-0.2); Absolute Eosinophil Count 0.25 k/cumm (0.0-0.7); Absolute Lymphocyte Count 2.62 k/cumm (1.2-3.4); Absolute Monocyte Count 0.85 k/cumm (0.11-0.7); Absolute Neutrophil Count 3.22 k/cumm (1.2-6.7); Basophils % 0.3; Eosinophils % 3.6; HCT 41.5 % (40.0-50.0); HGB 14.2 g/dL (13.5-17.5); Immature Grans % 0.1; Lymphocytes % 37.6; Mean Corp. HGB Concentration 34.2 g/dL (32.0-36.0); Mean Corpuscular Hemoglobin 32.1 pg (27.0-33.0); Mean Corpuscular Volume 93.9 fL (80-95); Mean Platelet Volume 11.7 fL (8.0-11.0); Monocytes % 12.2; Neutrophils % 46.2; Platelet Count 145 x1000/uL (130-400); RBC 4.42 m/cumm (4.50-6.00); RBC Distribution Width 13.2 % (11.8-14.1); White Blood Cell Count 6.97 k/cumm (4.4-10.8)
[2019-01-17 08:19] LABS: ALT 48 U/L (12-78); AST 32 U/L (15-37); Albumin 3.2 g/dL (3.4-5.0); Alkaline Phosphatase 81 U/L (46-116); Anion Gap 6.8 mmol/L (3-11); BUN 14 mg/dL (7-18); Bilirubin, Total 0.4 mg/dL (0.2-1.0); CO2 28.2 mmol/L (21.0-32.0); CREATININE 0.95 mg/dL (0.70-1.30); Calcium 8.5 mg/dL (8.5-10.1); Chloride 106 mmol/L (98-107); Glucose 108 mg/dL (70-100); Potassium 3.8 mmol/L (3.5-5.1); Sodium 141 mmol/L (136-145)
== END 2019-01-17 07:39 ==
PROVIDERS: PCP Nurse Practitioner Family; Visit Provider Internal Medicine
DX: C90.00 Multiple myeloma not having achieved remission (principal)
CPT/HCPCS: 36415; 80053; 83735; 85025

== ENCOUNTER 2019-02-12 08:34 | Outpatient (CLI) | payer MEDICAID, SELFPAY ==
[2019-02-12 09:09] LABS: Abs Immature Grans 0.01 k/cumm (0.0-0.09); Absolute Basophil Count 0.02 k/cumm (0.0-0.2); Absolute Eosinophil Count 0.31 k/cumm (0.0-0.7); Absolute Lymphocyte Count 2.54 k/cumm (1.2-3.4); Absolute Monocyte Count 0.78 k/cumm (0.11-0.7); Absolute Neutrophil Count 3.55 k/cumm (1.2-6.7); Basophils % 0.3; Eosinophils % 4.3; HCT 44.9 % (40.0-50.0); HGB 15.4 g/dL (13.5-17.5); Immature Grans % 0.1; Lymphocytes % 35.2; Mean Corp. HGB Concentration 34.3 g/dL (32.0-36.0); Mean Corpuscular Hemoglobin 31.8 pg (27.0-33.0); Mean Corpuscular Volume 92.8 fL (80-95); Mean Platelet Volume 11.6 fL (8.0-11.0); Monocytes % 10.8; Neutrophils % 49.3; Platelet Count 165 x1000/uL (130-400); RBC 4.84 m/cumm (4.50-6.00); RBC Distribution Width 13.4 % (11.8-14.1); White Blood Cell Count 7.21 k/cumm (4.4-10.8)
[2019-02-12 09:20] LABS: ALT 51 U/L (12-78); AST 33 U/L (15-37); Albumin 3.6 g/dL (3.4-5.0); Alkaline Phosphatase 81 U/L (46-116); Anion Gap 9.8 mmol/L (3-11); BUN 18 mg/dL (7-18); Bilirubin, Total 0.7 mg/dL (0.2-1.0); CO2 25.2 mmol/L (21.0-32.0); CREATININE 0.89 mg/dL (0.70-1.30); Calcium 8.9 mg/dL (8.5-10.1); Chloride 107 mmol/L (98-107); Glucose 120 mg/dL (70-100); Sodium 142 mmol/L (136-145); Total Protein 7.8 g/dL (6.4-8.2)
[2019-02-13 10:18] LABS: IgA 13 mg/dL (85-499); IgG 1694 mg/dL (610-1616); IgM <12 mg/dL (35-242); Kappa Free Light Chain 0.76 mg/dl (0.33-1.94); Lambda Free Light Chain <0.44 mg/dl (0.57-2.63)
[2019-02-13 13:34] LABS: Albumin 55.2 % (55.8-66.1); Monoclonal Spike 18.2 %; Total Protein 7.1 g/dl (6.3-8.2)
== END 2019-02-12 08:54 ==
PROVIDERS: PCP Nurse Practitioner Family; Visit Provider Internal Medicine Hematology & Oncology
DX: C90.00 Multiple myeloma not having achieved remission (principal)
CPT/HCPCS: 36415; 80053; 82784; 83883; 84165; 85025; 86320

== ENCOUNTER 2019-03-12 07:03 | Outpatient (CLI) | payer MEDICAID, SELFPAY ==
[2019-03-12 07:49] LABS: Abs Immature Grans 0.01 k/cumm (0.0-0.09); Absolute Basophil Count 0.02 k/cumm (0.0-0.2); Absolute Lymphocyte Count 2.42 k/cumm (1.2-3.4); Absolute Monocyte Count 0.89 k/cumm (0.11-0.7); Absolute Neutrophil Count 3.52 k/cumm (1.2-6.7); Basophils % 0.3; Eosinophils % 4.2; HCT 44.1 % (40.0-50.0); HGB 14.9 g/dL (13.5-17.5); Immature Grans % 0.1; Lymphocytes % 33.8; Mean Corp. HGB Concentration 33.8 g/dL (32.0-36.0); Mean Corpuscular Hemoglobin 31.7 pg (27.0-33.0); Mean Corpuscular Volume 93.8 fL (80-95); Mean Platelet Volume 11.8 fL (8.0-11.0); Monocytes % 12.4; Neutrophils % 49.2; Platelet Count 150 x1000/uL (130-400); RBC Distribution Width 13.4 % (11.8-14.1); White Blood Cell Count 7.16 k/cumm (4.4-10.8)
[2019-03-12 07:55] LABS: ALT 41 U/L (12-78); AST 25 U/L (15-37); Albumin 3.4 g/dL (3.4-5.0); Alkaline Phosphatase 73 U/L (46-116); Anion Gap 7.1 mmol/L (3-11); BUN 13 mg/dL (7-18); Bilirubin, Total 0.7 mg/dL (0.2-1.0); CO2 27.9 mmol/L (21.0-32.0); Calcium 8.6 mg/dL (8.5-10.1); Chloride 106 mmol/L (98-107); Glucose 110 mg/dL (70-100); Potassium 3.9 mmol/L (3.5-5.1); Sodium 141 mmol/L (136-145); Total Protein 7.5 g/dL (6.4-8.2)
[2019-03-13 11:55] LABS: Albumin 54.8 % (55.8-66.1); Monoclonal Spike 18.1 %; Total Protein 6.9 g/dl (6.3-8.2)
[2019-03-13 15:07] LABS: Kappa Free Light Chain 0.76 mg/dl (0.33-1.94); Lambda Free Light Chain <0.44 mg/dl (0.57-2.63)
[2019-03-14 10:44] LABS: IgA 26 mg/dL (85-499); IgG 1693 mg/dL (610-1616); IgM <12 mg/dL (35-242)
== END 2019-03-12 07:23 ==
PROVIDERS: PCP Nurse Practitioner Family; Visit Provider Internal Medicine Hematology & Oncology
DX: C90.00 Multiple myeloma not having achieved remission (principal)
CPT/HCPCS: 36415; 80053; 82784; 83883; 84165; 85025

== ENCOUNTER 2019-04-09 10:28 | Outpatient (CLI) | payer MEDICAID, SELFPAY ==
[2019-04-09 10:52] LABS: Abs Immature Grans 0.01 k/cumm (0.0-0.09); Absolute Basophil Count 0.01 k/cumm (0.0-0.2); Absolute Eosinophil Count 0.25 k/cumm (0.0-0.7); Absolute Lymphocyte Count 1.77 k/cumm (1.2-3.4); Absolute Monocyte Count 0.68 k/cumm (0.11-0.7); Absolute Neutrophil Count 3.45 k/cumm (1.2-6.7); Basophils % 0.2; Eosinophils % 4.1; HCT 45.1 % (40.0-50.0); HGB 15.4 g/dL (13.5-17.5); Immature Grans % 0.2; Lymphocytes % 28.7; Mean Corp. HGB Concentration 34.1 g/dL (32.0-36.0); Mean Corpuscular Hemoglobin 31.8 pg (27.0-33.0); Mean Corpuscular Volume 93.2 fL (80-95); Mean Platelet Volume 11.2 fL (8.0-11.0); Neutrophils % 55.8; Platelet Count 156 x1000/uL (130-400); RBC 4.84 m/cumm (4.50-6.00); RBC Distribution Width 13.1 % (11.8-14.1); White Blood Cell Count 6.17 k/cumm (4.4-10.8)
[2019-04-09 11:06] LABS: ALT 50 U/L (12-78); AST 31 U/L (15-37); Albumin 2.6 g/dL (3.4-5.0); Alkaline Phosphatase 68 U/L (46-116); Anion Gap 9.5 mmol/L (3-11); BUN 14 mg/dL (7-18); Bilirubin, Total 0.6 mg/dL (0.2-1.0); CO2 24.5 mmol/L (21.0-32.0); CREATININE 0.96 mg/dL (0.70-1.30); Calcium 8.5 mg/dL (8.5-10.1); Chloride 107 mmol/L (98-107); Glucose 116 mg/dL (70-100); Sodium 141 mmol/L (136-145); Total Protein 7.8 g/dL (6.4-8.2)
[2019-04-10 11:24] LABS: IgA 25 mg/dL (85-499); IgG 1756 mg/dL (610-1616); IgM <12 mg/dL (35-242); Kappa Free Light Chain 0.73 mg/dl (0.33-1.94); Lambda Free Light Chain <0.44 mg/dl (0.57-2.63)
[2019-04-10 13:08] LABS: Monoclonal Spike 18.8 %; Total Protein 7.5 g/dl (6.3-8.2)
== END 2019-04-09 10:48 ==
PROVIDERS: PCP Nurse Practitioner Family; Visit Provider Internal Medicine Hematology & Oncology
DX: C90.00 Multiple myeloma not having achieved remission (principal)
CPT/HCPCS: 36415; 80053; 82784; 83883; 84165; 85025

== ENCOUNTER 2019-05-07 07:02 | Outpatient (CLI) | payer MEDICAID, SELFPAY ==
[2019-05-07 07:26] LABS: Abs Immature Grans 0.01 k/cumm (0.0-0.09); Absolute Basophil Count 0.02 k/cumm (0.0-0.2); Absolute Eosinophil Count 0.26 k/cumm (0.0-0.7); Absolute Lymphocyte Count 2.48 k/cumm (1.2-3.4); Absolute Monocyte Count 0.66 k/cumm (0.11-0.7); Absolute Neutrophil Count 2.41 k/cumm (1.2-6.7); Basophils % 0.3; Eosinophils % 4.5; Immature Grans % 0.2; Lymphocytes % 42.5; Mean Corp. HGB Concentration 33.3 g/dL (32.0-36.0); Mean Corpuscular Hemoglobin 31.4 pg (27.0-33.0); Mean Corpuscular Volume 94.1 fL (80-95); Monocytes % 11.3; Neutrophils % 41.2; Platelet Count 169 x1000/uL (130-400); RBC 4.78 m/cumm (4.50-6.00); RBC Distribution Width 13.2 % (11.8-14.1); White Blood Cell Count 5.84 k/cumm (4.4-10.8)
[2019-05-07 07:36] LABS: ALT 78 U/L (16-63); AST 44 U/L (15-37); Albumin 3.5 g/dL (3.4-5.0); Alkaline Phosphatase 74 U/L (46-116); Anion Gap 9.1 mmol/L (3-11); BUN 13 mg/dL (7-18); Bilirubin, Total 0.6 mg/dL (0.2-1.0); CO2 26.9 mmol/L (21.0-32.0); CREATININE 0.95 mg/dL (0.70-1.30); Calcium 8.7 mg/dL (8.5-10.1); Chloride 106 mmol/L (98-107); Glucose 111 mg/dL (70-100); Potassium 4.1 mmol/L (3.5-5.1); Sodium 142 mmol/L (136-145); Total Protein 7.5 g/dL (6.4-8.2)
[2019-05-08 11:40] LABS: Kappa Free Light Chain 0.83 mg/dl (0.33-1.94); Lambda Free Light Chain <0.44 mg/dl (0.57-2.63)
[2019-05-08 12:15] LABS: IgA 27 mg/dL (85-499); IgG 1780 mg/dL (610-1616); IgM <12 mg/dL (35-242)
[2019-05-08 15:10] LABS: Albumin 55.2 % (55.8-66.1); Total Protein 7.4 g/dl (6.3-8.2)
== END 2019-05-07 07:22 ==
PROVIDERS: PCP Nurse Practitioner Family; Referring Provider Nurse Practitioner Family; Visit Provider Internal Medicine Hematology & Oncology
DX: C90.00 Multiple myeloma not having achieved remission (principal)
CPT/HCPCS: 36415; 80053; 82784; 83883; 84165; 85025

== ENCOUNTER 2019-06-04 07:09 | Outpatient (CLI) | payer MEDICAID, SELFPAY ==
[2019-06-04 07:29] LABS: Abs Immature Grans 0.01 k/cumm (0.0-0.09); Absolute Basophil Count 0.01 k/cumm (0.0-0.2); Absolute Eosinophil Count 0.34 k/cumm (0.0-0.7); Absolute Monocyte Count 0.78 k/cumm (0.11-0.7); Absolute Neutrophil Count 3.13 k/cumm (1.2-6.7); Basophils % 0.1; Eosinophils % 4.9; HCT 43.8 % (40.0-50.0); HGB 14.7 g/dL (13.5-17.5); Immature Grans % 0.1; Lymphocytes % 37.8; Mean Corp. HGB Concentration 33.6 g/dL (32.0-36.0); Mean Corpuscular Hemoglobin 31.8 pg (27.0-33.0); Mean Corpuscular Volume 94.8 fL (80-95); Mean Platelet Volume 11.7 fL (8.0-11.0); Monocytes % 11.4; Neutrophils % 45.7; Platelet Count 160 x1000/uL (130-400); RBC 4.62 m/cumm (4.50-6.00); RBC Distribution Width 13.3 % (11.8-14.1); White Blood Cell Count 6.87 k/cumm (4.4-10.8)
[2019-06-04 08:09] LABS: ALT 60 U/L (16-63); AST 40 U/L (15-37); Albumin 3.4 g/dL (3.4-5.0); Alkaline Phosphatase 79 U/L (46-116); Anion Gap 6.1 mmol/L (3-11); BUN 15 mg/dL (7-18); Bilirubin, Total 0.5 mg/dL (0.2-1.0); CO2 30.9 mmol/L (21.0-32.0); CREATININE 1.09 mg/dL (0.70-1.30); Calcium 8.5 mg/dL (8.5-10.1); Chloride 105 mmol/L (98-107); Glucose 100 mg/dL (70-100); Potassium 3.9 mmol/L (3.5-5.1); Sodium 142 mmol/L (136-145); Total Protein 7.7 g/dL (6.4-8.2)
[2019-06-05 09:59] LABS: IgA 27 mg/dL (85-499); IgG 1933 mg/dL (610-1616); IgM <12 mg/dL (35-242); Kappa Free Light Chain 0.94 mg/dl (0.33-1.94); Lambda Free Light Chain <0.44 mg/dl (0.57-2.63)
[2019-06-05 13:42] LABS: Albumin 54.7 % (55.8-66.1); Monoclonal Spike 19.3 %; Total Protein 7.3 g/dl (6.3-8.2)
== END 2019-06-04 07:29 ==
PROVIDERS: PCP Nurse Practitioner Family; Visit Provider Internal Medicine Hematology & Oncology
DX: C90.00 Multiple myeloma not having achieved remission (principal)
CPT/HCPCS: 36415; 80053; 82784; 83883; 84165; 85025

== ENCOUNTER 2019-07-02 07:01 | Outpatient (CLI) | payer MEDICAID, SELFPAY ==
[2019-07-02 07:39] LABS: ALT 58 U/L (16-63); AST 36 U/L (15-37); Albumin 3.3 g/dL (3.4-5.0); Alkaline Phosphatase 80 U/L (46-116); Anion Gap 8.3 mmol/L (3-11); BUN 14 mg/dL (7-18); Bilirubin, Total 0.4 mg/dL (0.2-1.0); CO2 28.7 mmol/L (21.0-32.0); CREATININE 0.99 mg/dL (0.70-1.30); Calcium 8.8 mg/dL (8.5-10.1); Chloride 105 mmol/L (98-107); Glucose 115 mg/dL (70-100); Potassium 4.1 mmol/L (3.5-5.1); Sodium 142 mmol/L (136-145); Total Protein 7.5 g/dL (6.4-8.2)
[2019-07-02 07:40] LABS: Abs Immature Grans 0.01 k/cumm (0.0-0.09); Absolute Basophil Count 0.01 k/cumm (0.0-0.2); Absolute Eosinophil Count 0.39 k/cumm (0.0-0.7); Absolute Lymphocyte Count 2.34 k/cumm (1.2-3.4); Absolute Monocyte Count 0.82 k/cumm (0.11-0.7); Absolute Neutrophil Count 2.85 k/cumm (1.2-6.7); Basophils % 0.2; Eosinophils % 6.1; HCT 42.4 % (40.0-50.0); HGB 14.3 g/dL (13.5-17.5); Immature Grans % 0.2; Lymphocytes % 36.4; Mean Corp. HGB Concentration 33.7 g/dL (32.0-36.0); Mean Corpuscular Hemoglobin 31.9 pg (27.0-33.0); Mean Corpuscular Volume 94.6 fL (80-95); Mean Platelet Volume 11.5 fL (8.0-11.0); Monocytes % 12.8; Neutrophils % 44.3; Platelet Count 157 x1000/uL (130-400); RBC 4.48 m/cumm (4.50-6.00); RBC Distribution Width 13.2 % (11.8-14.1); White Blood Cell Count 6.42 k/cumm (4.4-10.8)
[2019-07-04 11:09] LABS: Kappa Free Light Chain 0.98 mg/dL (0.33-1.94)
[2019-07-04 12:39] LABS: Lambda Free Light Chain <0.44 mg/dL (0.57-2.63)
[2019-07-04 15:33] LABS: IgA 26 mg/dL (85-499); IgG 1977 mg/dL (610-1,616)
[2019-07-04 16:32] LABS: IgM <12 mg/dL (35-242)
[2019-07-07 10:54] LABS: Albumin 54.3 % (55.8-66.1); Total Protein 7.2 g/dL (6.3-8.2)
== END 2019-07-02 07:21 ==
PROVIDERS: PCP Nurse Practitioner Family; Visit Provider Internal Medicine Hematology & Oncology
DX: C90.00 Multiple myeloma not having achieved remission (principal)
CPT/HCPCS: 36415; 80053; 82784; 83883; 84165; 85025

== ENCOUNTER 2019-07-30 01:31 | Outpatient (CLI) | payer MEDICAID, SELFPAY ==
[2019-07-30 08:00] LABS: Abs Immature Grans 0.01 k/cumm (0.0-0.09); Absolute Basophil Count 0.01 k/cumm (0.0-0.2); Absolute Eosinophil Count 0.28 k/cumm (0.0-0.7); Absolute Lymphocyte Count 2.34 k/cumm (1.2-3.4); Absolute Monocyte Count 0.77 k/cumm (0.11-0.7); Absolute Neutrophil Count 2.69 k/cumm (1.2-6.7); Basophils % 0.2; Eosinophils % 4.6; HCT 42.8 % (40.0-50.0); HGB 14.4 g/dL (13.5-17.5); Immature Grans % 0.2; Lymphocytes % 38.4; Mean Corp. HGB Concentration 33.6 g/dL (32.0-36.0); Mean Corpuscular Hemoglobin 31.9 pg (27.0-33.0); Mean Corpuscular Volume 94.9 fL (80-95); Mean Platelet Volume 11.1 fL (8.0-11.0); Monocytes % 12.6; Platelet Count 158 x1000/uL (130-400); RBC 4.51 m/cumm (4.50-6.00); RBC Distribution Width 13.6 % (11.8-14.1)
[2019-07-30 08:12] LABS: ALT 55 U/L (16-63); AST 38 U/L (15-37); Albumin 3.3 g/dL (3.4-5.0); Alkaline Phosphatase 65 U/L (46-116); Anion Gap 7.9 mmol/L (3-11); BUN 18 mg/dL (7-18); Bilirubin, Total 0.7 mg/dL (0.2-1.0); CO2 28.1 mmol/L (21.0-32.0); CREATININE 0.92 mg/dL (0.70-1.30); Calcium 8.9 mg/dL (8.5-10.1); Chloride 107 mmol/L (98-107); Glucose 112 mg/dL (74-106); Potassium 4.4 mmol/L (3.5-5.1); Sodium 143 mmol/L (136-145); Total Protein 7.6 g/dL (6.4-8.2)
[2019-07-31 12:55] LABS: IgA 21 mg/dL (85-499); IgG 1930 mg/dL (610-1,616); IgM <12 mg/dL (35-242); Kappa Free Light Chain 0.82 mg/dL (0.33-1.94); Lambda Free Light Chain <0.44 mg/dL (0.57-2.63)
[2019-07-31 14:34] LABS: Albumin 55.2 % (55.8-66.1); Comment (See Note); Monoclonal Spike 20.6 % (None Seen); Total Protein 7.4 g/dL (6.3-8.2)
== END 2019-07-30 01:51 ==
PROVIDERS: PCP Nurse Practitioner Family; Visit Provider Internal Medicine Hematology & Oncology
DX: C90.00 Multiple myeloma not having achieved remission (principal)
CPT/HCPCS: 36415; 80053; 82784; 83883; 84165; 85025

== ENCOUNTER 2019-07-31 00:31 | Outpatient (CLI) | payer MEDICAID, SELFPAY ==
--- NOTE | 2019-07-31 08:00 | DI.US_ITS ---
EXAM: US ABDOMEN CLINICAL HISTORY: HCC screening K74.60 CIRRHOSIS OF LIVER TECHNIQUE: Ultrasound performed using standard protocol. COMPARISON: ABDOMEN ULTRASOUND (P) from 05/31/2015 UPPER ABD W/WO CONTRAST(P) from 06/07/2015 FINDINGS: The liver shows increased echogenicity and coarsened echotexture and measures 14.7 cm. No biliary di latation is seen. The gallbladder appears normal. The pancreas is echogenic. The pancreas was seen to be fatty on previous CT. The pancreatic duct appears dilated at 4-5 millimeters. The spleen hailee sures 12.6 cm. There is no ascites. Cysts are noted on both kidneys. There is no evidence of hydro nephrosis. IMPRESSION: Mild cirrhotic changes of the liver. Borderline splenomegaly.
== END 2019-07-31 00:51 ==
PROVIDERS: PCP Nurse Practitioner Family; Visit Provider Psychiatry & Neurology Neurology
DX: K74.60 Unspecified cirrhosis of liver (principal); R16.1 Splenomegaly, not elsewhere classified
CPT/HCPCS: 76700

== ENCOUNTER 2019-08-18 16:37 | Outpatient (CLI) | payer MEDICAID, SELFPAY ==
[2019-08-18 17:05] LABS: Abs Immature Grans 0.01 k/cumm (0.0-0.09); Absolute Basophil Count 0.02 k/cumm (0.0-0.2); Absolute Lymphocyte Count 1.55 k/cumm (1.2-3.4); Absolute Monocyte Count 0.44 k/cumm (0.11-0.7); Absolute Neutrophil Count 3.56 k/cumm (1.2-6.7); Basophils % 0.3; Eosinophils % 3.5; HCT 43.4 % (40.0-50.0); HGB 15.1 g/dL (13.5-17.5); Immature Grans % 0.2; Lymphocytes % 26.8; Mean Corp. HGB Concentration 34.8 g/dL (32.0-36.0); Mean Corpuscular Hemoglobin 32.4 pg (27.0-33.0); Mean Corpuscular Volume 93.1 fL (80-95); Mean Platelet Volume 10.9 fL (8.0-11.0); Monocytes % 7.6; Neutrophils % 61.6; Platelet Count 158 x1000/uL (130-400); RBC 4.66 m/cumm (4.50-6.00); RBC Distribution Width 13.1 % (11.8-14.1); White Blood Cell Count 5.78 k/cumm (4.4-10.8)
[2019-08-18 17:46] LABS: ALT 122 U/L (16-63); AST 73 U/L (15-37); Albumin 3.5 g/dL (3.4-5.0); Alkaline Phosphatase 69 U/L (46-116); Anion Gap 9.2 mmol/L (3-11); BUN 10 mg/dL (7-18); Bilirubin, Total 0.5 mg/dL (0.2-1.0); CO2 27.8 mmol/L (21.0-32.0); CREATININE 0.85 mg/dL (0.70-1.30); Calcium 8.8 mg/dL (8.5-10.1); Chloride 106 mmol/L (98-107); Glucose 105 mg/dL (74-106); Potassium 4.3 mmol/L (3.5-5.1); Sodium 143 mmol/L (136-145); Total Protein 7.7 g/dL (6.4-8.2)
[2019-08-20 12:38] LABS: IgA 26 mg/dL (85-499); IgG 1927 mg/dL (610-1,616); IgM <12 mg/dL (35-242); Kappa Free Light Chain 0.73 mg/dL (0.33-1.94); Lambda Free Light Chain <0.44 mg/dL (0.57-2.63)
[2019-08-21 13:14] LABS: Albumin 51.5 % (55.8-66.1); Comment (See Note); Total Protein 7.4 g/dL (6.3-8.2)
[2019-08-21 14:15] LABS: HCV RNA Detection Quantitative 0 IU/mL (Undetected)
== END 2019-08-18 16:57 ==
PROVIDERS: Nurse Practitioner Family; PCP Nurse Practitioner Family; Visit Provider Internal Medicine Hematology & Oncology
DX: B18.2 Chronic viral hepatitis C (principal); C90.00 Multiple myeloma not having achieved remission
CPT/HCPCS: 36415; 80053; 82784; 83883; 84165; 85025; 87522

== ENCOUNTER 2019-09-17 11:14 | Outpatient (CLI) | payer MEDICAID, SELFPAY ==
[2019-09-17 12:26] LABS: HGB 14.7 g/dL (13.5-17.5); Mean Corp. HGB Concentration 34.2 g/dL (32.0-36.0); Mean Corpuscular Hemoglobin 32.1 pg (27.0-33.0); Mean Corpuscular Volume 93.9 fL (80-95); Mean Platelet Volume 11.8 fL (8.0-11.0); Platelet Count 139 x1000/uL (130-400); RBC 4.58 m/cumm (4.50-6.00); RBC Distribution Width 13.2 % (11.8-14.1); White Blood Cell Count 7.31 k/cumm (4.4-10.8)
[2019-09-17 12:37] LABS: ALT 68 U/L (16-63); AST 44 U/L (15-37); Albumin 3.6 g/dL (3.4-5.0); Alkaline Phosphatase 66 U/L (46-116); Anion Gap 9.1 mmol/L (3-11); BUN 15 mg/dL (7-18); Bilirubin, Total 1.1 mg/dL (0.2-1.0); CO2 26.9 mmol/L (21.0-32.0); CREATININE 0.93 mg/dL (0.70-1.30); Calcium 8.9 mg/dL (8.5-10.1); Chloride 105 mmol/L (98-107); Glucose 116 mg/dL (74-106); Potassium 4.1 mmol/L (3.5-5.1); Sodium 141 mmol/L (136-145); Total Protein 7.9 g/dL (6.4-8.2)
[2019-09-18 09:39] LABS: Kappa Free Light Chain 1.02 mg/dL (0.33-1.94); Lambda Free Light Chain <0.44 mg/dL (0.57-2.63)
[2019-09-18 16:47] LABS: Comment (See Note); Monoclonal Spike 21.9 % (None Seen); Total Protein 7.5 g/dL (6.3-8.2)
== END 2019-09-17 11:34 ==
PROVIDERS: PCP Nurse Practitioner Family; Visit Provider Internal Medicine Hematology & Oncology
DX: C90.00 Multiple myeloma not having achieved remission (principal)
CPT/HCPCS: 36415; 80053; 85027; 83883; 84165

== ENCOUNTER 2019-10-25 09:24 | Outpatient (CLI) | payer MEDICAID, SELFPAY ==
[2019-10-25 10:14] LABS: Abs Immature Grans 0.01 k/cumm (0.0-0.09); Absolute Basophil Count 0.01 k/cumm (0.0-0.2); Absolute Eosinophil Count 0.27 k/cumm (0.0-0.7); Absolute Lymphocyte Count 2.05 k/cumm (1.2-3.4); Absolute Monocyte Count 0.72 k/cumm (0.11-0.7); Absolute Neutrophil Count 2.55 k/cumm (1.2-6.7); Basophils % 0.2; Eosinophils % 4.8; HCT 40.7 % (40.0-50.0); HGB 13.8 g/dL (13.5-17.5); Immature Grans % 0.2 %; Lymphocytes % 36.5; Mean Corp. HGB Concentration 33.9 g/dL (32.0-36.0); Mean Corpuscular Hemoglobin 32.2 pg (27.0-33.0); Mean Corpuscular Volume 95.1 fL (80-95); Mean Platelet Volume 11.8 fL (8.0-11.0); Monocytes % 12.8; Neutrophils % 45.5; Platelet Count 153 x1000/uL (130-400); RBC 4.28 m/cumm (4.50-6.00); RBC Distribution Width 12.6 % (11.8-14.1); White Blood Cell Count 5.61 k/cumm (4.4-10.8)
[2019-10-25 11:05] LABS: ALT 46 U/L (16-63); AST 33 U/L (15-37); Albumin 3.4 g/dL (3.4-5.0); Alkaline Phosphatase 61 U/L (46-116); BUN 22 mg/dL (7-18); Bilirubin, Total 0.3 mg/dL (0.2-1.0); Calcium 8.5 mg/dL (8.5-10.1); Chloride 106 mmol/L (98-107); Glucose 119 mg/dL (74-106); Potassium 4.3 mmol/L (3.5-5.1); Sodium 143 mmol/L (136-145)
[2019-10-27 10:06] LABS: Kappa Free Light Chain 1.08 mg/dL (0.33-1.94); Lambda Free Light Chain <0.44 mg/dL (0.57-2.63)
[2019-10-27 14:18] LABS: Albumin 53.9 % (55.8-66.1); Comment (See Note); Monoclonal Spike 21.3 % (None Seen); Total Protein 7.1 g/dL (6.3-8.2)
== END 2019-10-25 09:44 ==
PROVIDERS: PCP Nurse Practitioner Family; Visit Provider Internal Medicine Hematology & Oncology
DX: C90.00 Multiple myeloma not having achieved remission (principal)
CPT/HCPCS: 36415; 80053; 83883; 84165; 85025

== ENCOUNTER 2019-11-28 01:53 | Outpatient (CLI) | payer MEDICAID, SELFPAY ==
[2019-11-28 15:40] LABS: Abs Immature Grans 0.01 k/cumm (0.0-0.09); Absolute Basophil Count 0.04 k/cumm (0.0-0.2); Absolute Eosinophil Count 0.28 k/cumm (0.0-0.7); Absolute Lymphocyte Count 2.41 k/cumm (1.2-3.4); Absolute Monocyte Count 0.93 k/cumm (0.11-0.7); Absolute Neutrophil Count 3.31 k/cumm (1.2-6.7); Basophils % 0.6; HCT 44.2 % (40.0-50.0); HGB 15.4 g/dL (13.5-17.5); Immature Grans % 0.1 %; Lymphocytes % 34.5; Mean Corp. HGB Concentration 34.8 g/dL (32.0-36.0); Mean Corpuscular Hemoglobin 32.6 pg (27.0-33.0); Mean Corpuscular Volume 93.4 fL (80-95); Mean Platelet Volume 11.2 fL (8.0-11.0); Monocytes % 13.3; Neutrophils % 47.5; Platelet Count 180 x1000/uL (130-400); RBC 4.73 m/cumm (4.50-6.00); RBC Distribution Width 12.9 % (11.8-14.1); White Blood Cell Count 6.98 k/cumm (4.4-10.8)
[2019-11-28 16:51] LABS: ALT 58 U/L (16-63); AST 38 U/L (15-37); Albumin 3.7 g/dL (3.4-5.0); Alkaline Phosphatase 64 U/L (46-116); Anion Gap 7.9 mmol/L (3-11); BUN 16 mg/dL (7-18); Bilirubin, Total 0.7 mg/dL (0.2-1.0); CO2 28.1 mmol/L (21.0-32.0); Calcium 8.8 mg/dL (8.5-10.1); Chloride 104 mmol/L (98-107); Glucose 113 mg/dL (74-106); Potassium 4.2 mmol/L (3.5-5.1); Sodium 140 mmol/L (136-145)
[2019-12-01 11:31] LABS: Kappa Free Light Chain 1.44 mg/dL (0.33-1.94); Lambda Free Light Chain <0.44 mg/dL (0.57-2.63)
[2019-12-01 13:15] LABS: Albumin 52.5 % (55.8-66.1); Comment (See Note); Monoclonal Spike 24.1 % (None Seen); Total Protein 7.8 g/dL (6.3-8.2)
== END 2019-11-28 02:13 ==
PROVIDERS: PCP Nurse Practitioner Family; Visit Provider Internal Medicine Hematology & Oncology
DX: C90.00 Multiple myeloma not having achieved remission (principal)
CPT/HCPCS: 36415; 80053; 83883; 84165; 85025

== ENCOUNTER 2019-12-25 02:11 | Outpatient (RCR) | payer MEDICARE, MEDICAID, SELFPAY | END 2020-01-18 23:59 | disposition home or self-care (01) | LOC: INF 02:11 | PROVIDERS: PCP Nurse Practitioner Family; Visit Provider Internal Medicine Hematology & Oncology | DX: R69 Illness, unspecified (principal) ==

== ENCOUNTER 2019-12-25 02:41 | Outpatient (CLI) | payer MEDICARE, MEDICAID, SELFPAY ==
[2019-12-25 10:06] LABS: Abs Immature Grans 0.02 k/cumm (0.0-0.09); Absolute Basophil Count 0.03 k/cumm (0.0-0.2); Absolute Eosinophil Count 0.31 k/cumm (0.0-0.7); Absolute Lymphocyte Count 1.83 k/cumm (1.2-3.4); Absolute Monocyte Count 0.82 k/cumm (0.11-0.7); Basophils % 0.6; HGB 14.6 g/dL (13.5-17.5); Immature Grans % 0.4 %; Lymphocytes % 35.1; Mean Corpuscular Hemoglobin 31.7 pg (27.0-33.0); Mean Corpuscular Volume 93.5 fL (80-95); Monocytes % 15.7; Neutrophils % 42.2; Platelet Count 122 x1000/uL (130-400); RBC Distribution Width 13.2 % (11.8-14.1); White Blood Cell Count 5.21 k/cumm (4.4-10.8)
[2019-12-25 11:37] LABS: ALT 72 U/L (16-63); AST 42 U/L (15-37); Albumin 3.3 g/dL (3.4-5.0); Alkaline Phosphatase 60 U/L (46-116); Anion Gap 6.9 mmol/L (3-11); BUN 10 mg/dL (7-18); Bilirubin, Total 0.7 mg/dL (0.2-1.0); CO2 29.1 mmol/L (21.0-32.0); CREATININE 1.02 mg/dL (0.70-1.30); Chloride 103 mmol/L (98-107); Glucose 119 mg/dL (74-106); Potassium 3.9 mmol/L (3.5-5.1); Sodium 139 mmol/L (136-145); Total Protein 7.5 g/dL (6.4-8.2)
[2019-12-26 11:26] LABS: Kappa Free Light Chain 1.56 mg/dL (0.33-1.94); Lambda Free Light Chain <0.44 mg/dL (0.57-2.63)
[2019-12-26 15:19] LABS: Albumin 51.4 % (55.8-66.1); Comment (See Note); Monoclonal Spike 22.6 % (None Seen)
== END 2019-12-25 03:01 ==
PROVIDERS: PCP Nurse Practitioner Family; Visit Provider Internal Medicine Hematology & Oncology
DX: C90.00 Multiple myeloma not having achieved remission (principal)
CPT/HCPCS: 36415; 80053; 83883; 84165; 85025

== ENCOUNTER 2020-01-23 03:16 | Outpatient (CLI) | payer MEDICARE, MEDICAID, SELFPAY ==
[2020-01-23 13:21] LABS: Abs Immature Grans 0.01 k/cumm (0.0-0.09); Absolute Basophil Count 0.04 k/cumm (0.0-0.2); Absolute Lymphocyte Count 1.58 k/cumm (1.2-3.4); Absolute Monocyte Count 0.86 k/cumm (0.11-0.7); Absolute Neutrophil Count 2.73 k/cumm (1.2-6.7); Basophils % 0.7; Eosinophils % 5.4; HCT 42.6 % (40.0-50.0); HGB 14.6 g/dL (13.5-17.5); Immature Grans % 0.2 %; Lymphocytes % 28.6; Mean Corp. HGB Concentration 34.3 g/dL (32.0-36.0); Mean Corpuscular Hemoglobin 31.9 pg (27.0-33.0); Mean Corpuscular Volume 93.2 fL (80-95); Mean Platelet Volume 11.9 fL (8.0-11.0); Monocytes % 15.6; Neutrophils % 49.5; Platelet Count 108 x1000/uL (130-400); RBC 4.57 m/cumm (4.50-6.00); RBC Distribution Width 13.3 % (11.8-14.1); White Blood Cell Count 5.52 k/cumm (4.4-10.8)
[2020-01-23 13:38] LABS: ALT 76 U/L (16-63); AST 44 U/L (15-37); Albumin 3.3 g/dL (3.4-5.0); Alkaline Phosphatase 57 U/L (46-116); Anion Gap 5.4 mmol/L (3-11); BUN 12 mg/dL (7-18); Bilirubin, Total 0.9 mg/dL (0.2-1.0); CO2 27.6 mmol/L (21.0-32.0); CREATININE 1.13 mg/dL (0.70-1.30); Calcium 8.6 mg/dL (8.5-10.1); Chloride 105 mmol/L (98-107); Glucose 108 mg/dL (74-106); Sodium 138 mmol/L (136-145); Total Protein 7.8 g/dL (6.4-8.2)
[2020-01-26 12:12] LABS: IgA 17 mg/dL (85-499); IgG 2121 mg/dL (610-1,616); IgM <12 mg/dL (35-242); Kappa Free Light Chain 1.95 mg/dL (0.33-1.94); Lambda Free Light Chain <0.44 mg/dL (0.57-2.63)
[2020-01-26 12:29] LABS: Albumin 51.4 % (55.8-66.1); Comment (See Note); Total Protein 7.6 g/dL (6.3-8.2)
== END 2020-01-23 03:36 ==
PROVIDERS: PCP Nurse Practitioner Family; Visit Provider Internal Medicine Hematology & Oncology
DX: C90.00 Multiple myeloma not having achieved remission (principal)
CPT/HCPCS: 36415; 80053; 82784; 83883; 84165; 85025

== ENCOUNTER 2020-02-18 01:56 | Outpatient (CLI) | payer MEDICARE, MEDICAID, SELFPAY ==
--- NOTE | 2020-02-18 | DI.MRI_ITS ---
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 CONTRAST MATERIAL: IV Contrast: 20 ML of Dotarem contrast administered. COMPARISON: No exams were available for comparison FINDINGS: BONES: Vertebral body heights are maintained. There is loss of signal in the intervertebral discs at multiple levels. Alignment is normal. Endplate degenerative signal changes are seen at C2-3 and C6-C 7. CERVICAL CORD: Craniovertebral junction is unremarkable. The cervical cord is normal size and signal intensity. No lesion is present. SOFT TISSUES: Unremarkable. ENHANCEMENT: No suspicious enhancement identified. C2-3: No disc herniation or bulge is identified. C3-4: No disc herniation or bulge is identified. There are mild hypertrophic changes of the uncovert ebral joints causing mild left neural foraminal narrowing. C4-5: No disc herniation or bulge is identified. No significant central spinal canal or neural penny inal stenosis is present. C5-6: There is a diffuse disc bulge asymmetrically extending laterally to the left. There is narrowi ng of the AP diameter of the central spinal canal down to 9 mm. Degenerative changes of the uncovert ebral joints are present. The findings cause marked left neural foraminal stenosis and vzux-oj-[id number] ate right neural foraminal stenosis. C6-7: There is a mild diffuse disc bulge. There is mild narrowing of the AP diameter of the central spinal canal. Hypertrophic changes of the uncovertebral joints are noted causing bilateral moderatel y severe neural foraminal stenosis. C7-T1: No disc herniation or bulge is identified. No significant central spinal canal or neural fora megan stenosis is present. IMPRESSION: 1. Degenerative changes seen at C5-C6 causing central spinal canal stenosis, marked left neural penny inal stenosis and [id number]-[id number] right neural foraminal stenosis. 2. Multilevel degenerative changes in the cervical spine. 3. No evidence of abnormal signal in the spinal cord. 4. No suspicious enhancement. DATA REPOSITORY:
[2020-02-18] MEDS: Normal Saline Flush 10 ML SYR IVP (13:28)
[2020-02-18] MEDS: Gadoterate meglumine 20 ML VIAL IVP (13:29)
== END 2020-02-18 02:16 ==
PROVIDERS: PCP Nurse Practitioner Family; Visit Provider Internal Medicine Hematology & Oncology
DX: B18.2 Chronic viral hepatitis C (principal); C90.00 Multiple myeloma not having achieved remission; M50.322 Other cervical disc degeneration at C5-C6 level; M50.323 Other cervical disc degeneration at C6-C7 level; M48.02 Spinal stenosis, cervical region
CPT/HCPCS: 72156

== ENCOUNTER 2020-02-25 02:26 | Outpatient (RCR) | payer MEDICARE, MEDICAID, SELFPAY ==
[2020-02-25 09:03] LABS: Abs Immature Grans 0.01 k/cumm (0.0-0.09); Absolute Basophil Count 0.03 k/cumm (0.0-0.2); Absolute Eosinophil Count 0.35 k/cumm (0.0-0.7); Absolute Monocyte Count 0.59 k/cumm (0.11-0.7); Absolute Neutrophil Count 3.31 k/cumm (1.2-6.7); Basophils % 0.4; Eosinophils % 4.9; HGB 15.3 g/dL (13.5-17.5); Immature Grans % 0.1 %; Lymphocytes % 39.5; Mean Corpuscular Hemoglobin 31.7 pg (27.0-33.0); Mean Corpuscular Volume 93.2 fL (80-95); Mean Platelet Volume 11.7 fL (8.0-11.0); Monocytes % 8.3; Neutrophils % 46.8; Platelet Count 140 x1000/uL (130-400); RBC 4.83 m/cumm (4.50-6.00); RBC Distribution Width 13.6 % (11.8-14.1); White Blood Cell Count 7.09 k/cumm (4.4-10.8)
[2020-02-25 09:16] LABS: ALT 60 U/L (16-63); AST 40 U/L (15-37); Albumin 3.5 g/dL (3.4-5.0); Alkaline Phosphatase 62 U/L (46-116); Anion Gap 10.5 mmol/L (3-11); BUN 13 mg/dL (7-18); Bilirubin, Total 0.7 mg/dL (0.2-1.0); CO2 24.5 mmol/L (21.0-32.0); Calcium 8.9 mg/dL (8.5-10.1); Chloride 105 mmol/L (98-107); Glucose 114 mg/dL (74-106); Potassium 3.9 mmol/L (3.5-5.1); Sodium 140 mmol/L (136-145); Total Protein 8.5 g/dL (6.4-8.2)
[2020-02-26 10:34] LABS: IgA 16 mg/dL (85-499); IgG 2533 mg/dL (610-1,616); IgM <12 mg/dL (35-242); Kappa Free Light Chain 2.01 mg/dL (0.33-1.94); Lambda Free Light Chain <0.44 mg/dL (0.57-2.63)
[2020-02-26 12:02] LABS: Albumin 50.8 % (55.8-66.1); Comment (See Note); Monoclonal Spike 24.9 % (None Seen); Total Protein 8.1 g/dL (6.3-8.2)
== END 2020-03-19 23:59 | disposition home or self-care (01) ==
LOC: INF 02:26
PROVIDERS: PCP Nurse Practitioner Family; Visit Provider Internal Medicine Hematology & Oncology
DX: C90.00 Multiple myeloma not having achieved remission (principal)
CPT/HCPCS: 36415; 80053; 82784; 83883; 84165; 85025

== ENCOUNTER 2020-03-22 01:56 | Outpatient (CLI) | payer MEDICARE, MEDICAID, SELFPAY ==
[2020-03-22 11:33] LABS: Abs Immature Grans 0.02 10^3/uL (0.0-0.06); Absolute Basophil Count 0.04 10^3/uL (0.0-0.2); Absolute Eosinophil Count 0.21 10^3/uL (0.0-0.7); Absolute Lymphocyte Count 1.84 10^3/uL (1.2-3.4); Absolute Monocyte Count 0.73 10^3/uL (0.1-0.8); Absolute Neutrophil Count 4.62 10^3/uL (1.2-6.7); Basophils % 0.5; Eosinophils % 2.8; HCT 44.6 % (40.0-50.0); HGB 14.9 g/dL (13.5-17.5); Immature Grans % 0.3; Lymphocytes % 24.7; MCH 32.1 pg (27.0-33.0); MCHC 33.4 % (32.0-36.0); MCV 96.1 fL (80-95); MPV 11.1 fL (8.0-11.0); Monocytes % 9.8; Neutrophils % 61.9; Platelet Count 156 10^3/uL (130-400); RBC 4.64 10^6/uL (4.36-5.78); RDW 13.1 % (11.8-14.1); RDW-SD 46.3 fL; WBC 7.46 10^3/uL (4.4-10.8)
[2020-03-22 12:03] LABS: Prothrombin Time 10.4 sec (9.3-11.0)
[2020-03-22 12:32] LABS: ALT 63 U/L (16-63); AST 39 U/L (15-37); Albumin 3.6 g/dL (3.4-5.0); Alkaline Phosphatase 68 U/L (46-116); Anion Gap 7.5 mmol/L (3-11); BUN 14 mg/dL (7-18); Bilirubin, Total 0.6 mg/dL (0.2-1.0); CO2 27.5 mmol/L (21.0-32.0); CREATININE 0.91 mg/dL (0.70-1.30); Calcium 8.9 mg/dL (8.5-10.1); Chloride 105 mmol/L (98-107); Glucose 111 mg/dL (74-106); Potassium 4.2 mmol/L (3.5-5.1); Sodium 140 mmol/L (136-145); Total Protein 8.1 g/dL (6.4-8.2)
[2020-03-23 14:06] LABS: IgA 22 mg/dL (85-499); IgG 2617 mg/dL (610-1,616); IgM <12 mg/dL (35-242); Kappa Free Light Chain 2.62 mg/dL (0.33-1.94); Lambda Free Light Chain <0.44 mg/dL (0.57-2.63)
[2020-03-23 14:21] LABS: Albumin 49.9 % (55.8-66.1); Comment (See Note); Monoclonal Spike 25.9 % (None Seen); Total Protein 8.1 g/dL (6.3-8.2)
== END 2020-03-22 02:16 ==
PROVIDERS: PCP Nurse Practitioner Family; Visit Provider Internal Medicine Hematology & Oncology
DX: C90.00 Multiple myeloma not having achieved remission (principal); K74.60 Unspecified cirrhosis of liver
CPT/HCPCS: 36415; 80053; 82784; 83883; 84165; 85025; 85610

== ENCOUNTER 2020-04-02 12:39 | Outpatient (CLI) | payer MEDICARE, MEDICAID, SELFPAY ==
[2020-04-02 13:39] LABS: Abs Immature Grans 0.07 10^3/uL (0.0-0.06); Absolute Basophil Count 0.02 10^3/uL (0.0-0.2); Absolute Lymphocyte Count 4.01 10^3/uL (1.2-3.4); Basophils % 0.2; HCT 47.1 % (40.0-50.0); HGB 16.2 g/dL (13.5-17.5); Immature Grans % 0.6; Lymphocytes % 32.8; MCH 32.1 pg (27.0-33.0); MCHC 34.4 % (32.0-36.0); MCV 93.5 fL (80-95); MPV 10.6 fL (8.0-11.0); Monocytes % 9.2; Neutrophils % 57.2; Nucleated RBC 0 %; Platelet Count 186 10^3/uL (130-400); RBC 5.04 10^6/uL (4.36-5.78); RDW 13.3 % (11.8-14.1); RDW-SD 45.6 fL; WBC 12.24 10^3/uL (4.4-10.8)
[2020-04-02 13:45] LABS: Absolute Monocyte Count 1.13 10^3/uL (0.1-0.8)
[2020-04-02 13:53] LABS: ALT 80 U/L (16-63); AST 31 U/L (15-37); Albumin 3.2 g/dL (3.4-5.0); Alkaline Phosphatase 64 U/L (46-116); Anion Gap 8.5 mmol/L (3-11); BUN 23 mg/dL (7-18); Bilirubin, Total 0.8 mg/dL (0.2-1.0); CO2 26.5 mmol/L (21.0-32.0); CREATININE 0.98 mg/dL (0.70-1.30); Calcium 8.5 mg/dL (8.5-10.1); Chloride 103 mmol/L (98-107); Glucose 115 mg/dL (74-106); Potassium 4.1 mmol/L (3.5-5.1); Sodium 138 mmol/L (136-145)
[2020-04-05 12:23] LABS: Albumin 50.5 % (55.8-66.1); Comment (See Note); Monoclonal Spike 25.3 % (None Seen); Total Protein 7.6 g/dL (6.3-8.2)
[2020-04-05 12:39] LABS: IgA 23 mg/dL (85-499); IgG 2348 mg/dL (610-1,616); IgM <12 mg/dL (35-242); Kappa Free Light Chain 2.28 mg/dL (0.33-1.94); Lambda Free Light Chain <0.44 mg/dL (0.57-2.63)
== END 2020-04-02 12:59 ==
PROVIDERS: PCP Nurse Practitioner Family; Visit Provider Internal Medicine Hematology & Oncology
DX: C90.00 Multiple myeloma not having achieved remission (principal)
CPT/HCPCS: 36415; 80053; 82784; 83883; 84165; 85025

== ENCOUNTER 2020-04-21 21:45 | Emergency (ER) | payer MEDICARE, MEDICAID, SELFPAY ==
[2020-04-21 21:52] VITALS: BP 115/49; PULSE 86; RESP 22; TEMP 36.5; O2SAT 96
--- NOTE | 2020-04-21 22:30 | RT.EKG_ITS ---
APPROVED REPORT Exam: Resting ECG Patient Location: E HR:84 bpm ECG Measurements Heart Rate 84 AXIS NM 179 P 46 QRSd 99 QRS 6 QT 386 T 24 QTc 456 Conclusion Sinus rhythm...normal P axis, V-rate 60- 99
--- NOTE | 2020-04-21 22:39 | ED.GENADUL_ITS ---
Discharge Plan Disposition Patient Disposition: HOME Condition: Stable Discharge Details Chief Complaint: GenMedical Clinical Impression: Dizziness, Tremor, Confusion Primary Care Provider: Olga Ramos ED Provider: Star Castillo Home Meds and New Rx's Prescriptions: Continued clindamycin phosphate 1 % lotion 1 applic TP DAILY PRN (Reason: recurrent skin infection) Qty: 60 RF: 0 cholecalciferol (vitamin D3) [Vitamin D3] 2,000 UNIT tablet 2,000 unit PO DAILY Qty: 90 RF: 3 acyclovir 400 mg tablet 400 mg PO BID RF: 0 fluticasone propionate [Flonase Allergy Relief] 50 mcg/actuation spray,suspension 1 - 2 spray NS DAILY PRN (Reason: nasal congestion) Qty: 1 RF: 6 prochlorperazine maleate [Compazine] 10 mg tablet 10 mg PO Q6H PRNRF: 0 pyridoxine (vitamin B6) [Vitamin B-6] 50 mg tablet 50 mg PO DAILY Qty: 90 RF: 3 zolpidem 12.5 mg tablet,ext release multiphase 10 mg PO QHS PRNRF: 0 aspirin 325 mg tablet 325 mg PO DAILY RF: 0 magnesium oxide 400 mg (241.3 mg magnesium) tablet 800 mg PO DAILY Qty: 180 RF: 3 sennosides-docusate sodium [Senna with Docusate Sodium] 8.6-50 mg tablet 1 - 2 tab PO BID MDD 4 tab-caps PRN (Reason: constipation) Qty: 30 RF: 3 enalapril maleate 20 mg tablet 20 mg PO DAILY Qty: 90 RF: 0 prednisone 10 mg tablet 20 mg PO DAILY RF: 0 melatonin 10 mg tablet 3 mg PO HS PRN (Reason: sleep) RF: 0 Discharge Instructions Instructions: Dizziness (ED) Additional Instructions: Please discuss your chemotherapy with your oncologist. Do not ingest unknown recreational drugs as side effects may be undesirable and potentially dangerous. Please contact your primary care physician to arrange follow-up. Please contact your oncologist to arrange follow-up. Return to the ER for any worsening or new concerning symptoms. Referrals: Gladis Rowell MD [ [facility] STAFF PHYSICIAN] - Olga Ramos NP [Primary Care Provider] - Medical Decision Making 11:05 -- 65-year-old male with multiple medical problems including history of multiple myeloma, on chemotherapy and prednisone, here with generalized fatigue, confusion, tremors and dizziness today. He has concerned that symptoms are related to his chemotherapy. Consider neutropenia and electrolyte abnormalities. Consider asthenia as side effect of medication. Screening ECG reviewed and interpreted by me: Please see report, sinus rhythm 84 bpm, nondiagnostic. Patient has not had anything to drink today and has dry mucous membranes. Will give IV fluid bolus normal saline 500 mL. 1140 --patient reassessed. He is now noting that he did consume what he thought was a marijuana elixir made by a friend earlier today. He does acknowledge that there could have been other unknown substances in the concoction. He does state that some of his symptoms started prior to taking this elixir. I suspect this has contributed to some of his symptoms today. Patient continues to remain stable. Labs assessed and are nondiagnostic. No significant electrolyte abnormalities. Results were discussed with the patient. He was given a crystalloid 500 mL bolus. Patient ambulating without dysfunction. Plan will be for discharge with outpatient follow-up. I encouraged him to call and speak with his oncologist tomorrow about his chemotherapeutic regimen. I encouraged him to not take any illicit substances especially when he does not know what he is ingesting. Lab Data Lab results reviewed: Yes I reviewed the patient's lab results. Labs: Laboratory Tests Range/Units 04/21/20 04/21/20 23:00 23:00 WBC (4.4-10.8) 10^3/uL 6.83 RBC (4.36-5.78) 10^6/uL 4.26 L Hgb (13.5-17.5) g/dL 13.7 Hct (40.0-50.0) % 40.7 MCV (80-95) fL 95.5 H MCH (27.0-33.0) pg 32.2 MCHC (32.0-36.0) % 33.7 RDW (11.8-14.1) % 13.1 Plt Count (130-400) 10^3/uL 144 MPV (8.0-11.0) fL 10.8 Immature Gran % 1.9 Neutrophils % 77.7 Lymphocytes % 14.8 Monocytes % 5.3 Eosinophils % 0.0 Basophils % 0.3 Nucleated RBC % % 0 Absolute Neutrophils (1.2-6.7) 10^3/uL 5.31 Absolute Lymphocytes (1.2-3.4) 10^3/uL 1.01 L Absolute Monocytes (0.1-0.8) 10^3/uL 0.36 Absolute Eosinophils (0.0-0.7) 10^3/uL 0.00 Absolute Basophils (0.0-0.2) 10^3/uL 0.02 Sodium (136-145) mmol/L 137 Potassium (3.5-5.1) mmol/L 3.8 Chloride (98-107) mmol/L 103 Carbon Dioxide (21.0-32.0) mmol/L 27.2 Anion Gap (3-11) mmol/L 6.8 BUN (7-18) mg/dL 22 H Creatinine (0.70-1.30) mg/dL 0.96 Estimated GFR/1.73 m2 (mL/min/1.73m2) >= 60.00 Glucose (74-106) mg/dL 148 H Calcium (8.5-10.1) mg/dL 8.7 Magnesium (1.8-2.4) mg/dL 1.9 Total Bilirubin (0.2-1.0) mg/dL 0.6 AST (15-37) U/L 40 H ALT (16-63) U/L 81 H Alkaline Phosphatase (46-116) U/L 65 Total Protein (6.4-8.2) g/dL 7.6 Albumin (3.4-5.0) g/dL 3.1 L HPI General Mode of arrival: ambulatory . Date/Time Provider Initiated Documentation: 04/21/20 22:23 . Limitations to Documentation: no limitations . Information obtained by: patient . HPI Narrative: 65-year-old male with multiple medical problems including history of multiple myeloma, active lesion in his pelvis, on chemotherapy and prednisone, here tonight with complaint of generally not feeling well today. Patient notes that he was feeling dizzy earlier this afternoon and had tremors. Symptoms have been severe. Patient denies dizziness at this time. He notes associated confusion. Patient has chronic pain in his left hip but this is not changed he has no new pain today. Related Data Home Medications Medication Instructions Recorded Confirmed cholecalciferol (vitamin D3) 2,000 unit PO DAILY #90 tab-cap 10/31/17 04/21/20 [Vitamin D3] acyclovir 400 mg tablet 400 mg PO BID tab 06/17/18 04/21/20 fluticasone propionate 50 1 - 2 spray NS DAILY PRN #1 unit 12/23/18 04/21/20 mcg/actuation nasal spray,suspension prochlorperazine maleate 10 mg 10 mg PO Q6H PRN 06/19/19 04/21/20 tablet pyridoxine (vitamin B6) 50 mg 50 mg PO DAILY #90 tab-cap 06/26/19 04/21/20 tablet zolpidem 12.5 mg tablet,extended 10 mg PO QHS PRN 07/28/19 04/21/20 release,multiphase aspirin 325 mg tablet 325 mg PO DAILY 10/29/19 04/21/20 magnesium oxide 400 mg (241.3 mg 800 mg PO DAILY #180 tab-cap 01/09/20 04/21/20 magnesium) tablet sennosides 8.6 mg-docusate sodium 1 - 2 tab PO BID PRN #30 tab-cap 02/04/20 04/21/20 50 mg tablet MDD 4 tab-caps enalapril maleate 20 mg tablet 20 mg PO DAILY #90 tab-cap 02/26/20 04/21/20 clindamycin phosphate 1 % lotion 1 applic TP DAILY PRN #60 ml 03/18/20 04/21/20 melatonin 3 mg PO HS PRN 04/21/20 04/21/20 prednisone 20 mg PO DAILY 04/21/20 04/21/20 Previous Rx's Medication Instructions Recorded cholecalciferol (vitamin D3) 2,000 unit PO DAILY #90 tab-cap 10/31/17 [Vitamin D3] fluticasone propionate 50 1 - 2 spray NS DAILY PRN #1 unit 12/23/18 mcg/actuation nasal spray,suspension pyridoxine (vitamin B6) 50 mg 50 mg PO DAILY #90 tab-cap 06/26/19 tablet magnesium oxide 400 mg (241.3 mg 800 mg PO DAILY #180 tab-cap 01/09/20 magnesium) tablet sennosides 8.6 mg-docusate sodium 1 - 2 tab PO BID PRN #30 tab-cap 02/04/20 50 mg tablet MDD 4 tab-caps enalapril maleate 20 mg tablet 20 mg PO DAILY #90 tab-cap 02/26/20 clindamycin phosphate 1 % lotion 1 applic TP DAILY PRN #60 ml 03/18/20 Allergies Allergy/AdvReac Type Severity Reaction Status Date / Time Sulfa (Sulfonamide Allergy Unknown told rx as Verified 04/21/20 22:09 Antibiotics) an infant General Stated Complaint: GenMedical DAMON: 3 Review of Systems All systems reviewed & are unremarkable except as noted in HPI and below Constitutional Constitutional: Denies fever(s) Cardiovascular Cardiovascular: Denies chest pain and Denies dyspnea Respiratory Respiratory: Denies dyspnea [facility] Medical History Adult BMI > 30 (Chronic) 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 POS IgG, 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 Cirrhosis Cirrhosis of liver (Chronic 07/26/15) Due to hep C (s/p tx, see historical problems) & EtOH Followed by [facility] GI Screening EGD 07/28/15: no evidence of varices MELD: 7 (as of 04/10/2017) Should have influenza vaccination annually & pneumonia vaccination [id number] Depression (Inactive 08/06/15) Sertraline in the past Essential hypertension (Chronic) Hepatic encephalopathy (Chronic 07/26/15) Hepatitis C Hepatitis C (Resolved 05/12/15) Genotype 2, s/p tx [facility] with SVR History of alcohol abuse history of chikungunya infection 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 HTN (hypertension) Hypomagnesemia (Chronic 03/20/16) Muscle cramps Insomnia (Chronic) Sleep Clinic [facility] C-PAP Multiple myeloma Multiple myeloma not having achieved remission (Chronic 09/13/17) 01/29/20 F/U with Dr Younger,[facility] Hematology Obstructive sleep apnea syndrome, mild (Chronic 07/26/17) unable to tolerate C Pap Ambien agreement through sleep clinic Other chronic pain (Chronic 08/06/15) Multifactorial, attributed to chronic Hep C, h/o chikungunya infxn, & OA Portal hypertension (Chronic 01/20/16) EGD 07/2015 with recommendation to repeat in 2-3 years (07/2018) per [facility] GI Renal cyst, left (Chronic 06/01/15) abd US 05/31/15 Vitamin D deficiency (Chronic 03/07/16) Surgical History Colectomy (08/20/05) fistula repair-pt unsure of exact date Colonoscopy - MAC (06/04/15) LIZETTE elbow surgery reattached tendon R knee surgery osteochondritis desicans L knee 1974 meniscus surgery L 1998 ORIF and cementing pathologic proximal humerus fracture (09/05/17) [facility] Dr. Mathis shoulder surgery L shoulder Status post cataract extraction and insertion of intraocular lens of left eye (Inactive 12/30/18) toe surgery torn tendon 2nd toe R foot Family History Grandfather Diabetes Mother , Suicide Mental disorder Father No problems noted. Social History Smoking/Tobacco Use Status: Never Alcohol Intake: former Drug use: Daily Substance use type: marijuana Details: past hx IV drug use/ in remission. Caregiver/Support person: No Communication Needs: None Pets and animals: No Current gender identity: male What type of physical activity do you participate in: none Seatbelt use: always Water heater temp set <120 deg: Yes Working smoke detector in home: Yes Fire extinguisher in home: Yes Carbon monox detector in home: Yes Firearms in home: Yes Firearms unloaded and locked: Yes Do you feel safe at home: Yes Do you feel safe in your relationship?: Yes Exam Const General: cooperative and no acute distress HENMT Mouth: mucous membranes dry Eyes Conjunctivae: normal conjunctivae Sclera: normal sclerae Resp Auscultation: clear to auscultation bilaterally, no rales, no rhonchi and no wheezes Cardio Jugular venous pressure: no JVD Rate: regular rate and not tachycardic Rhythm: regular rhythm GI Palpation: soft, not firm, no guarding, no masses, not rigid and nontender Skin General skin exam: no rashes or lesions noted Neuro General: patient alert, patient awake and tone normal Psych Appearance: grossly normal Mental Status: mental status grossly normal Course Vital Signs Vital signs: Vital Signs Temperature 36.5 C 04/21/20 21:52 Pulse 86 04/21/20 21:52 Respiratory Rate 22 04/21/20 21:52 Blood Pressure 115/49 L 04/21/20 21:52 Pulse Oximetry 96 04/21/20 21:52 Temperature 36.5 C 04/21/20 21:52 Temperature Source Skin 04/21/20 21:52 Pulse 86 04/21/20 21:52 Respiratory Rate 22 04/21/20 21:52 Respiratory Effort Non-Labored 04/21/20 22:02 Blood Pressure 115/49 L 04/21/20 21:52 Blood Pressure Position Supine 04/21/20 21:52 Pulse Oximetry 96 04/21/20 21:52 Oxygen Delivery Method Room Air 04/21/20 21:52 Oxygen Flow Rate 0 04/21/20 21:52 Pain Level 0 04/21/20 21:52
[2020-04-21 23:09] LABS: Abs Immature Grans 0.13 10^3/uL (0.0-0.06); Absolute Basophil Count 0.02 10^3/uL (0.0-0.2); Absolute Lymphocyte Count 1.01 10^3/uL (1.2-3.4); Absolute Monocyte Count 0.36 10^3/uL (0.1-0.8); Absolute Neutrophil Count 5.31 10^3/uL (1.2-6.7); Basophils % 0.3; HCT 40.7 % (40.0-50.0); HGB 13.7 g/dL (13.5-17.5); Immature Grans % 1.9; Lymphocytes % 14.8; MCH 32.2 pg (27.0-33.0); MCHC 33.7 % (32.0-36.0); MCV 95.5 fL (80-95); MPV 10.8 fL (8.0-11.0); Monocytes % 5.3; Neutrophils % 77.7; Nucleated RBC 0 %; Platelet Count 144 10^3/uL (130-400); RBC 4.26 10^6/uL (4.36-5.78); RDW 13.1 % (11.8-14.1); RDW-SD 46.2 fL; WBC 6.83 10^3/uL (4.4-10.8)
[2020-04-21] MEDS: Normal Saline 500 ML IV (23:23)
[2020-04-21 23:24] LABS: ALT 81 U/L (16-63); AST 40 U/L (15-37); Albumin 3.1 g/dL (3.4-5.0); Alkaline Phosphatase 65 U/L (46-116); Anion Gap 6.8 mmol/L (3-11); BUN 22 mg/dL (7-18); Bilirubin, Total 0.6 mg/dL (0.2-1.0); CO2 27.2 mmol/L (21.0-32.0); CREATININE 0.96 mg/dL (0.70-1.30); Calcium 8.7 mg/dL (8.5-10.1); Chloride 103 mmol/L (98-107); Glucose 148 mg/dL (74-106); Magnesium 1.9 mg/dL (1.8-2.4); Potassium 3.8 mmol/L (3.5-5.1); Sodium 137 mmol/L (136-145); Total Protein 7.6 g/dL (6.4-8.2)
[2020-04-21 23:49] VITALS: RESP 18
[2020-04-22 00:10] VITALS: BP 124/58; PULSE 73; RESP 20; O2SAT 97
== END 2020-04-22 00:05 | disposition home or self-care (01) ==
PROVIDERS: Emergency Provider Student in an Organized Health Care Education/Training Program; PCP Nurse Practitioner Family
DX: R42 Dizziness and giddiness (principal); R25.1 Tremor, unspecified; R41.0 Disorientation, unspecified; C90.00 Multiple myeloma not having achieved remission; Z79.899 Other long term (current) drug therapy; I10 Essential (primary) hypertension
CPT/HCPCS: 36415; 80053; 93005; 96360; 99284; 83735; 85025; 93010

== ENCOUNTER 2020-05-06 00:52 | Outpatient (CLI) | payer MEDICARE, MEDICAID, SELFPAY ==
--- NOTE | 2020-05-06 14:30 | DI.RAD_ITS ---
EXAM: XR HIP RT COMPLETE AP PELVIS CLINICAL HISTORY: MULTIPLE MYELOMA,REMISSION,C90.00, NEW RT HIP PAIN TECHNIQUE: COMPARISON: No exams were available for comparison FINDINGS: Three views were obtained. There is mild narrowing of the cartilaginous joint spaces of both hips jarrett periorly. There are mild hypertrophic marginal osteophytes of the acetabula bilaterally. No lytic l esion identified in the hips or pelvis to suggest the presence of myeloma lesions. IMPRESSION: DJD, no plain film evidence of myeloma. RADIATION DOSE DELIVERED: Total DLP
== END 2020-05-06 01:12 ==
PROVIDERS: PCP Nurse Practitioner Family; Visit Provider Radiology Radiation Oncology
DX: M17.11 Unilateral primary osteoarthritis, right knee (principal); C90.01 Multiple myeloma in remission
CPT/HCPCS: 36415; 80053; 82784; 73502; 83883; 84165; 85025

== ENCOUNTER 2020-05-06 03:49 | Outpatient (CLI) | payer MEDICARE, MEDICAID, SELFPAY ==
[2020-05-06 14:27] LABS: Abs Immature Grans 0.02 10^3/uL (0.0-0.06); Absolute Basophil Count 0.04 10^3/uL (0.0-0.2); Absolute Eosinophil Count 0.09 10^3/uL (0.0-0.7); Absolute Lymphocyte Count 1.93 10^3/uL (1.2-3.4); Absolute Monocyte Count 1.05 10^3/uL (0.1-0.8); Absolute Neutrophil Count 2.88 10^3/uL (1.2-6.7); Basophils % 0.7; Eosinophils % 1.5; HCT 42.4 % (40.0-50.0); HGB 13.9 g/dL (13.5-17.5); Immature Grans % 0.3; Lymphocytes % 32.1; MCH 31.7 pg (27.0-33.0); MCHC 32.8 % (32.0-36.0); MCV 96.8 fL (80-95); MPV 10.5 fL (8.0-11.0); Monocytes % 17.5; Neutrophils % 47.9; Nucleated RBC 0 %; Platelet Count 118 10^3/uL (130-400); RBC 4.38 10^6/uL (4.36-5.78); RDW 13.1 % (11.8-14.1); RDW-SD 46.4 fL; WBC 6.01 10^3/uL (4.4-10.8)
[2020-05-06 14:35] LABS: ALT 58 U/L (16-63); AST 28 U/L (15-37); Albumin 3.5 g/dL (3.4-5.0); Alkaline Phosphatase 63 U/L (46-116); Anion Gap 4.4 mmol/L (3-11); BUN 22 mg/dL (7-18); Bilirubin, Total 0.7 mg/dL (0.2-1.0); CO2 28.6 mmol/L (21.0-32.0); CREATININE 1.07 mg/dL (0.70-1.30); Calcium 8.9 mg/dL (8.5-10.1); Chloride 104 mmol/L (98-107); Glucose 132 mg/dL (74-106); Potassium 4.5 mmol/L (3.5-5.1); Sodium 137 mmol/L (136-145); Total Protein 8.3 g/dL (6.4-8.2)
[2020-05-07 09:01] LABS: IgA 58 mg/dL (85-499); IgG 2135 mg/dL (610-1,616); IgM 16 mg/dL (35-242); Kappa Free Light Chain 3.08 mg/dL (0.33-1.94); Lambda Free Light Chain 1.12 mg/dL (0.57-2.63)
[2020-05-07 14:24] LABS: Albumin 50.2 % (55.8-66.1); Comment (See Note); Monoclonal Spike 20.7 % (None Seen); Total Protein 7.7 g/dL (6.3-8.2)
== END 2020-05-06 04:09 ==
PROVIDERS: PCP Nurse Practitioner Family; Visit Provider Internal Medicine Hematology & Oncology
DX: C90.00 Multiple myeloma not having achieved remission (principal)
CPT/HCPCS: 36415; 80053; 82784; 83883; 84165; 85025

== ENCOUNTER 2020-05-19 04:14 | Outpatient (CLI) | payer MEDICARE, MEDICAID, SELFPAY ==
[2020-05-19 12:24] LABS: Abs Immature Grans 0.35 10^3/uL (0.0-0.06); Absolute Basophil Count 0.04 10^3/uL (0.0-0.2); Absolute Eosinophil Count 0.02 10^3/uL (0.0-0.7); Absolute Monocyte Count 0.55 10^3/uL (0.1-0.8); Absolute Neutrophil Count 4.65 10^3/uL (1.2-6.7); Basophils % 0.5; Eosinophils % 0.3; HCT 41.8 % (40.0-50.0); HGB 14.2 g/dL (13.5-17.5); Immature Grans % 4.7; Lymphocytes % 25.3; MCH 32.6 pg (27.0-33.0); MCV 96.1 fL (80-95); MPV 10.8 fL (8.0-11.0); Monocytes % 7.3; Neutrophils % 61.9; Nucleated RBC 0 %; Platelet Count 137 10^3/uL (130-400); RBC 4.35 10^6/uL (4.36-5.78); RDW 13.7 % (11.8-14.1); RDW-SD 48.3 fL; WBC 7.51 10^3/uL (4.4-10.8)
[2020-05-19 12:48] LABS: ALT 51 U/L (16-63); AST 25 U/L (15-37); Alkaline Phosphatase 64 U/L (46-116); Anion Gap 6.4 mmol/L (3-11); BUN 24 mg/dL (7-18); Bilirubin, Total 0.7 mg/dL (0.2-1.0); CO2 27.6 mmol/L (21.0-32.0); CREATININE 0.96 mg/dL (0.70-1.30); Calcium 8.7 mg/dL (8.5-10.1); Chloride 105 mmol/L (98-107); Glucose 112 mg/dL (74-106); Potassium 4.1 mmol/L (3.5-5.1); Sodium 139 mmol/L (136-145); Total Protein 7.2 g/dL (6.4-8.2)
[2020-05-20 09:24] LABS: IgA 41 mg/dL (85-499); IgG 1896 mg/dL (610-1,616); IgM 12 mg/dL (35-242); Kappa Free Light Chain 2.94 mg/dL (0.33-1.94); Lambda Free Light Chain <0.44 mg/dL (0.57-2.63)
[2020-05-20 14:48] LABS: Albumin 50.6 % (55.8-66.1); Comment (See Note); Monoclonal Spike 18.9 % (None Seen); Total Protein 6.9 g/dL (6.3-8.2)
== END 2020-05-19 04:34 ==
PROVIDERS: PCP Nurse Practitioner Family; Visit Provider Internal Medicine Hematology & Oncology
DX: C90.00 Multiple myeloma not having achieved remission (principal)
CPT/HCPCS: 36415; 80053; 82784; 83883; 84165; 85025

== ENCOUNTER 2020-05-26 14:53 | Outpatient (CLI) | payer MEDICARE, MEDICAID, SELFPAY ==
--- NOTE | 2020-05-26 12:28 | DI.RAD_ITS ---
EXAM: XR FEMUR RT CLINICAL HISTORY: h/o MM with new R thigh pain; r/o lytic lesion/s M79.651 PAIN RT THIGH TECHNIQUE: COMPARISON: No exams were available for comparison FINDINGS: Four views were obtained. There is mild narrowing of the cartilaginous joint space of the right hip. Mild acetabular hypertrophic spurring noted. Moderate degenerative changes noted at the tibial fem oral joints. No other significant abnormality seen involving the femur. No erosive or destructive l esion femur identified. IMPRESSION: RADIATION DOSE DELIVERED: Total DLP
== END 2020-05-26 15:13 ==
PROVIDERS: PCP Nurse Practitioner Family; Visit Provider Nurse Practitioner Adult Health
DX: M79.651 Pain in right thigh (principal)
CPT/HCPCS: 73552

== ENCOUNTER 2020-06-04 13:47 | Outpatient (CLI) | payer MEDICARE, MEDICAID, SELFPAY ==
[2020-06-04 14:17] LABS: Abs Immature Grans 0.09 10^3/uL (0.0-0.06); Absolute Basophil Count 0.02 10^3/uL (0.0-0.2); Absolute Eosinophil Count 0.62 10^3/uL (0.0-0.7); Absolute Lymphocyte Count 1.91 10^3/uL (1.2-3.4); Absolute Monocyte Count 1.12 10^3/uL (0.1-0.8); Absolute Neutrophil Count 2.02 10^3/uL (1.2-6.7); Basophils % 0.3; Eosinophils % 10.7; HCT 40.5 % (40.0-50.0); HGB 13.5 g/dL (13.5-17.5); Immature Grans % 1.6; MCH 32.5 pg (27.0-33.0); MCHC 33.3 % (32.0-36.0); MCV 97.6 fL (80-95); MPV 10.3 fL (8.0-11.0); Monocytes % 19.4; Nucleated RBC 0 %; Platelet Count 139 10^3/uL (130-400); RBC 4.15 10^6/uL (4.36-5.78); RDW-SD 50.2 fL; WBC 5.78 10^3/uL (4.4-10.8)
[2020-06-04 14:32] LABS: ALT 176 U/L (16-63); AST 40 U/L (15-37); Albumin 3.2 g/dL (3.4-5.0); Alkaline Phosphatase 84 U/L (46-116); Anion Gap 6.9 mmol/L (3-11); BUN 19 mg/dL (7-18); Bilirubin, Total 0.9 mg/dL (0.2-1.0); CO2 28.1 mmol/L (21.0-32.0); CREATININE 0.99 mg/dL (0.70-1.30); Calcium 8.9 mg/dL (8.5-10.1); Chloride 105 mmol/L (98-107); Glucose 124 mg/dL (74-106); Potassium 4.6 mmol/L (3.5-5.1); Sodium 140 mmol/L (136-145); Total Protein 6.8 g/dL (6.4-8.2)
[2020-06-04 14:53] LABS: Diff Comment Agrees w/ Instrument; RBC Morphology Normal
[2020-06-07 12:01] LABS: IgA 78 mg/dL (85-499); IgG 1101 mg/dL (610-1,616); IgM 15 mg/dL (35-242); Kappa Free Light Chain 1.78 mg/dL (0.33-1.94); Lambda Free Light Chain 0.87 mg/dL (0.57-2.63)
[2020-06-07 12:54] LABS: Albumin 55.2 % (55.8-66.1); Comment (See Note); Monoclonal Spike 12.6 % (None Seen); Total Protein 6.4 g/dL (6.3-8.2)
== END 2020-06-04 14:07 ==
PROVIDERS: PCP Nurse Practitioner Family; Visit Provider Internal Medicine Hematology & Oncology
DX: C90.00 Multiple myeloma not having achieved remission (principal)
CPT/HCPCS: 36415; 80053; 82784; 83883; 84165; 85025

== ENCOUNTER 2020-07-01 08:30 | Outpatient (CLI) | payer MEDICARE, MEDICAID, SELFPAY ==
[2020-07-01 13:11] LABS: Abs Immature Grans 0.46 10^3/uL (0.0-0.06); HCT 35.1 % (40.0-50.0); HGB 11.9 g/dL (13.5-17.5); MCH 33.2 pg (27.0-33.0); MCHC 33.9 % (32.0-36.0); MPV 10.5 fL (8.0-11.0); Nucleated RBC 0 %; Platelet Count 140 10^3/uL (130-400); RBC 3.58 10^6/uL (4.36-5.78); RDW 15.9 % (11.8-14.1); RDW-SD 55.5 fL; WBC 8.89 10^3/uL (4.4-10.8)
[2020-07-01 13:43] LABS: Absolute Lymphocyte Count 0.53 10^3/uL (1.2-3.4); Absolute Monocyte Count 1.69 10^3/uL (0.1-0.8); Absolute Neutrophil Count 6.31 10^3/uL (1.2-6.7); Bands % 1; Diff Comment Manual Differential; Metamyelocytes % 2; Myelocytes % 2; RBC Morphology Normal
[2020-07-01 14:16] LABS: ALT 229 U/L (16-63); AST 55 U/L (15-37); Albumin 3.4 g/dL (3.4-5.0); Alkaline Phosphatase 74 U/L (46-116); Anion Gap 11.4 mmol/L (3-11); BUN 18 mg/dL (7-18); Bilirubin, Total 1.2 mg/dL (0.2-1.0); CO2 23.6 mmol/L (21.0-32.0); CREATININE 0.89 mg/dL (0.70-1.30); Calcium 8.7 mg/dL (8.5-10.1); Chloride 107 mmol/L (98-107); Glucose 186 mg/dL (74-106); Potassium 4.2 mmol/L (3.5-5.1); Sodium 142 mmol/L (136-145); Total Protein 6.3 g/dL (6.4-8.2)
[2020-07-19 13:00] LABS: IgA 106 mg/dL (61-356); IgG 818 mg/dL (767-1590); IgM 41 mg/dL (37-286)
[2020-07-19 13:07] LABS: Total Protein 6.1 g/dL (6.3-7.9)
[2020-07-19 13:08] LABS: Albumin 3.2 g/dL (3.4-4.7); Monoclonal Spike 0.6 g/dL (<=0.0)
== END 2020-07-01 08:50 ==
PROVIDERS: PCP Nurse Practitioner Family; Visit Provider Internal Medicine Hematology & Oncology
DX: C90.00 Multiple myeloma not having achieved remission (principal)
CPT/HCPCS: 36415; 80053; 82784; 83883; 84165; 85025; 86320

== ENCOUNTER 2020-07-29 04:29 | Outpatient (RCR) | payer MEDICARE, MEDICAID, SELFPAY ==
[2020-07-29 11:09] LABS: Abs Immature Grans 0.53 10^3/uL (0.0-0.06); HCT 33.2 % (40.0-50.0); HGB 11.2 g/dL (13.5-17.5); MCHC 33.7 % (32.0-36.0); MCV 103.8 fL (80-95); MPV 10.6 fL (8.0-11.0); Nucleated RBC 0 %; RDW 16.2 % (11.8-14.1); WBC 8.18 10^3/uL (4.4-10.8)
[2020-07-29 11:21] LABS: ALT 165 U/L (16-63); AST 34 U/L (15-37); Albumin 3.4 g/dL (3.4-5.0); Alkaline Phosphatase 68 U/L (46-116); Anion Gap 10.4 mmol/L (3-11); BUN 18 mg/dL (7-18); Bilirubin, Total 1.1 mg/dL (0.2-1.0); CO2 24.6 mmol/L (21.0-32.0); CREATININE 0.89 mg/dL (0.70-1.30); Calcium 8.6 mg/dL (8.5-10.1); Chloride 107 mmol/L (98-107); Glucose 252 mg/dL (74-106); Potassium 3.9 mmol/L (3.5-5.1); Sodium 142 mmol/L (136-145); Total Protein 6.6 g/dL (6.4-8.2)
[2020-07-29 11:57] LABS: Absolute Lymphocyte Count 0.74 10^3/uL (1.2-3.4); Absolute Monocyte Count 1.64 10^3/uL (0.1-0.8); Absolute Neutrophil Count 5.48 10^3/uL (1.2-6.7); Bands % 2; Platelet Count 116 10^3/uL (130-400)
[2020-07-29 11:58] LABS: Diff Comment Manual Differential; Macrocytosis 2+; Metamyelocytes % 2; Myelocytes % 2; Polychromasia Present
[2020-07-30 11:42] LABS: IgA 120 mg/dL (85-499); IgG 646 mg/dL (610-1,616); IgM 13 mg/dL (35-242); Kappa Free Light Chain 0.55 mg/dL (0.33-1.94); Lambda Free Light Chain 1.02 mg/dL (0.57-2.63)
[2020-07-30 12:37] LABS: Albumin 60.2 % (55.8-66.1); Comment (See Note); Monoclonal Spike 5.1 % (None Seen); Total Protein 6.4 g/dL (6.3-8.2)
== END 2020-08-19 23:59 | disposition home or self-care (01) ==
LOC: INF 04:29
PROVIDERS: PCP Nurse Practitioner Family; Visit Provider Internal Medicine Hematology & Oncology
DX: C90.00 Multiple myeloma not having achieved remission (principal)
CPT/HCPCS: 36415; 80053; 82784; 83883; 84165; 85025

== ENCOUNTER 2020-08-19 01:43 | Outpatient (CLI) | payer MEDICARE, MEDICAID, SELFPAY ==
--- NOTE | 2020-08-19 07:45 | DI.RAD_ITS ---
EXAM: XR CHEST 2V PA LATERAL CLINICAL HISTORY: edema,R60.9. TECHNIQUE: 2D digital imaging was performed. COMPARISON: CR RIGHT SHOULDER COMPLETE from 08/27/2017 FINDINGS: Heart size is slightly prominent. Mediastinum is not widened. There are no infiltrates nor pleural effusions. No pulmonary edema. Small benign-appearing nodule right upper lobe region is most probab ly benign given that is evident on right shoulder x-rays performed 3 years ago (August 2017). Hardware in the right shoulder is seen in the peripheral aspect field of view. There is also evidenc e healed fracture site midshaft of the left clavicle. Also irregularity of the right AC joint is unc hanged from 2018. IMPRESSION: No acute pulmonary findings.Mild cardiomegaly. DATA REPOSITORY: RADIATION DOSE DELIVERED:
== END 2020-08-19 02:03 ==
PROVIDERS: PCP Nurse Practitioner Family; Visit Provider Internal Medicine
DX: R60.9 Edema, unspecified (principal); I51.7 Cardiomegaly
CPT/HCPCS: 71046

== ENCOUNTER 2020-08-26 01:51 | Outpatient (RCR) | payer MEDICARE, MEDICAID, SELFPAY ==
[2020-08-26 11:10] LABS: Abs Immature Grans 0.14 10^3/uL (0.0-0.06); HCT 37.7 % (40.0-50.0); HGB 12.7 g/dL (13.5-17.5); MCH 36.2 pg (27.0-33.0); MCHC 33.7 % (32.0-36.0); MCV 107.4 fL (80-95); MPV 10.6 fL (8.0-11.0); Nucleated RBC 0 %; Platelet Count 140 10^3/uL (130-400); RBC 3.51 10^6/uL (4.36-5.78); RDW 14.4 % (11.8-14.1); RDW-SD 55.8 fL; WBC 6.09 10^3/uL (4.4-10.8)
[2020-08-26 11:21] LABS: Absolute Eosinophil Count 0.43 10^3/uL (0.0-0.7); Absolute Lymphocyte Count 1.58 10^3/uL (1.2-3.4); Absolute Monocyte Count 1.04 10^3/uL (0.1-0.8); Absolute Neutrophil Count 2.92 10^3/uL (1.2-6.7); Atypical Lymphocytes % 6; Diff Comment Manual Differential; Macrocytosis 2+; Metamyelocytes % 1; Myelocytes % 1; Polychromasia Present
[2020-08-26 11:26] LABS: ALT 125 U/L (16-63); AST 35 U/L (15-37); Albumin 3.6 g/dL (3.4-5.0); Alkaline Phosphatase 64 U/L (46-116); Anion Gap 8.3 mmol/L (3-11); BUN 15 mg/dL (7-18); Bilirubin, Total 1.2 mg/dL (0.2-1.0); CO2 28.7 mmol/L (21.0-32.0); CREATININE 0.94 mg/dL (0.70-1.30); Calcium 9.2 mg/dL (8.5-10.1); Chloride 107 mmol/L (98-107); Glucose 132 mg/dL (74-106); Potassium 3.8 mmol/L (3.5-5.1); Sodium 144 mmol/L (136-145); Total Protein 6.8 g/dL (6.4-8.2)
[2020-08-27 10:34] LABS: IgA 116 mg/dL (85-499); IgG 549 mg/dL (610-1,616); IgM <12 mg/dL (35-242); Kappa Free Light Chain 1.32 mg/dL (0.33-1.94); Lambda Free Light Chain 1.29 mg/dL (0.57-2.63)
[2020-08-27 11:49] LABS: Albumin 60.3 % (55.8-66.1); Comment (See Note); Monoclonal Spike 4.4 % (None Seen); Total Protein 6.3 g/dL (6.3-8.2)
== END 2020-09-19 23:59 | disposition home or self-care (01) ==
LOC: INF 01:51
PROVIDERS: PCP Nurse Practitioner Family; Visit Provider Internal Medicine Hematology & Oncology
DX: C90.00 Multiple myeloma not having achieved remission (principal)
CPT/HCPCS: 36415; 80053; 82784; 83883; 84165; 85025

== ENCOUNTER 2020-08-26 18:08 | Outpatient (CLI) | payer MEDICARE, MEDICAID, SELFPAY ==
--- NOTE | 2020-08-26 10:00 | DI.US_ITS ---
EXAM: US LOWER EXTREMITY VENOUS RT CLINICAL HISTORY: R/o DVT, cancer hx, swelling rt lower extremity, M79.89 TECHNIQUE: Grayscale, color, and doppler imaging of the deep venous system of the lower extremity w as performed. COMPARISON: US US ABDOMEN from 07/31/2019 FINDINGS: Grayscale, color, and Doppler imaging of the venous system the right lower extremity was performed. There is normal compression and augmentation of deep veins. However, there is significant thrombosis of the saphenous system with prominent clot load in the entire length of the greater saphenous vein and extending slightly into the common femoral vein at the saphenofemoral vein junction. There is also significant intraluminal thrombus evident within the lesser saphenous vein in the calf. IMPRESSION: 1. Significant lung level thrombus in the greater saphenous vein and extending beyond the saphenofem oral junction into the common femoral vein. 2. These findings places patient at significant risk for pulmonary embolus. DATA REPOSITORY:
== END 2020-08-26 18:28 ==
PROVIDERS: PCP Nurse Practitioner Family; Visit Provider Nurse Practitioner Family
DX: I82.811 Embolism and thrombosis of superficial veins of right lower extremity (principal); I82.411 Acute embolism and thrombosis of right femoral vein
CPT/HCPCS: 36415; 80053; 82784; 83883; 84165; 85025; 93971

== ENCOUNTER 2020-09-03 04:41 | Outpatient (CLI) | payer MEDICARE, MEDICAID, SELFPAY ==
--- NOTE | 2020-09-03 07:15 | DI.US_ITS ---
APPROVED REPORT EXAM: Comprehensive 2D, Doppler, and color-flow Echocardiogram Patient Location: Out-Patient [facility] [place]: Kaylee Junior RDCS (AE) Indications: Edema, Hypertension Other Information Study Quality: Fair. Technically limited study due to body habitus. Conclusion Moderate concentric left ventricular hypertrophy. Normal left ventricular chamber size. EF is 55 to 60%. Wall motion is normal Normal right ventricular size and systolic function Both atria are normal in size There are no structural valvular abnormalities Wall motion Left Ventricle The left ventricle is normal size. The left ventricular systolic function is normal. The left ventric ular ejection fraction is within the normal range. Moderate concentric left ventricular hypertrophy. There is normal LV segmental wall motion. There is no ventricular septal defect visualized. LVEF is 5 5-60%. Right Ventricle Right ventricle is grossly normal in size. Right ventricular systolic function is grossly normal. The RVSP is 25.0mmHg. Atria The left atrium size is normal. The right atrium size is normal. The interatrial septum is intact wit h no evidence for an atrial septal defect. Aortic Valve The aortic valve is normal in structure. Aortic valve is trileaflet. There is no aortic valvular sten osis. No aortic regurgitation is present. Mitral Valve The mitral valve is normal in structure. No evidence of mitral valve stenosis. Trace mitral regurgita tion. Tricuspid Valve The tricuspid valve is normal in structure. There is no tricuspid valve stenosis. Trace tricuspid reg urgitation. Pulmonic Valve The pulmonary valve is normal in structure. There is no pulmonic valvular stenosis. There is no pulmo mary valvular regurgitation. Great Vessels The aortic root is normal in size. The ascending aorta is normal in size. IVC is normal in size and c ollapses >50% with inspiration. Pericardium There is no pericardial effusion. Prominent anterior epicardial fat pad is present. 2D Dimensions IVSD d PLAX 1.35 cm M: 0.6-1.2 LV Vol A2C d MOD 110.9 mL LVPW d PLAX 1.31 cm M: 0.6 - 1.2 LV Vol A4C d MOD 152.6 mL LVID d PLAX 4.68 cm M: 4.2 - 5.8 LA vol/ BSA A2C s A-L 23.7 mL/m2 LVDs 3.25 cm M: 2.5 - 4.0 LA vol/ BSA A4C s A-L 33.6 mL/m2 Ao Root d 3.42 cm M: 3.1 - 3.7 LA Vol/ BSA Biplane s A-L 30.0 mL/m2 RA Area A4C 17.64 cm2 LA Area A4C s MOD 25.81 cm2 RA Vol/ BSA A4C s A-L 20.1 mL/m2 LA Area A2C s MOD 20.45 cm2 Ao Asc Diam d 3.39 cm M: 2.6 - 3.4 LV EF A4C MOD 54.4 % LV EF Teichholz 57.1 % LV EF A2C MOD 55.8 % LVEF (Rios's) 54.84 % M: 52 - 72 LV EF Biplane MOD 54.8 % LV Volume 91.53 mL M: 62 - 150 SV 72.24 mL LV Volume Index 35.75 mL/m2 M: 34 - 74 SV Index 28.16 mL/m2 LV Vol Biplane MOD 131.7 mL FS 29.90 % M-Mode TAPSE 2.84 cm (M/F) >1.7 LV Diastology MV E' medial 0.106 (>0.07 m/s) E/A Ratio 1.0 LV E/e MED 7.40 (<14) MV E Vmax 0.79 (0.4-1.3 m/s) MV E' lateral 0.142 (>0.1 m/s) MV A Vmax 0.80 (0.4-1.3 m/s) LV E/e LAT 5.50 (<14) MV E/A Ratio 0.93 MV E/E' medial 7.42 MV E/E' lateral 5.54 Aortic Valve LVOT Area 4.15 cm2 AoV Area Vmax 2.67 cm2 LVOT Vmax 1.16 m/s AoV Area/ BSA (Vmax) 1.04 cm2/m2 LVOT Mean Herberth. 0.72 m/s ALLEN Mean [place]ber[place]. 2.39 cm2 LVOT Peak Grad 5.4 mmHg ALLEN Mean [place]. Index 0.93 cm2/m2 LVOT Mean Grad 2.5 mmHg LVOT VTI 0.237 m LVOT Diam s 2.25 cm AoV Vmax 1.81 m/s Velocity Ratio 0.64 AoV Mean Herberth. 1.26 m/s AoV Peak Grad 13.1 mmHg LVOT SV 98.27 mL AoV Mean Grad 6.9 mmHg AoV VTI 0.317 m AoV Area VTI 3.10 cm2 AoV Area/ BSA (VTI) 1.21 cm/m2 Mitral Valve MV DT 206 (160-240 msec) MV PHT 60 msec MV Area PHT 3.69 cm2 MV VTI 0.235 m MV VTI Annulus 0.231 m MV Area VTI 4.13 (4.0-6.0 cm2) Pulmonary Valve PV Vmax 1.28 (0.5-1.5 m/s) RVOT Peak Gr. 1.58 mmHg PV Peak Grad 6.5 mmHg RVOT Mean Gr. 0.85 mmHg PV Mean Grad 2.6 mmHg RVOT VTI 0.141 m PV VTI 0.234 m RVOT Vmax 0.63 m/s Tricuspid Valve TR Peak Grad 22.0 mmHg TR Vmax 2.35 m/s RA Pressure 3.00 mmHg RVSP (TR) 25.0 mmHg
== END 2020-09-03 05:01 ==
PROVIDERS: PCP Nurse Practitioner Family; Visit Provider Internal Medicine
DX: I10 Essential (primary) hypertension (principal); K76.6 Portal hypertension; R60.0 Localized edema
CPT/HCPCS: 93306

== ENCOUNTER 2020-11-04 11:28 | Outpatient (REF) | payer MEDICARE, MEDICAID, SELFPAY ==
[2020-11-04 13:19] LABS: Abs Immature Grans 0.02 10^3/uL (0.0-0.06); Absolute Basophil Count 0.04 10^3/uL (0.0-0.2); Absolute Lymphocyte Count 1.34 10^3/uL (1.2-3.4); Absolute Monocyte Count 0.63 10^3/uL (0.1-0.8); Absolute Neutrophil Count 4.89 10^3/uL (1.2-6.7); Basophils % 0.6; Eosinophils % 2.8; HGB 16.1 g/dL (13.5-17.5); Immature Grans % 0.3; Lymphocytes % 18.8; MCH 31.3 pg (27.0-33.0); MCHC 34.3 % (32.0-36.0); MCV 91.3 fL (80-95); MPV 11.9 fL (8.0-11.0); Monocytes % 8.8; Neutrophils % 68.7; Nucleated RBC 0 %; Platelet Count 153 10^3/uL (130-400); RBC 5.15 10^6/uL (4.36-5.78); RDW 11.4 % (11.8-14.1); RDW-SD 38.6 fL; WBC 7.12 10^3/uL (4.4-10.8)
[2020-11-04 13:48] LABS: ALT 95 U/L (16-63); AST 55 U/L (15-37); Albumin 3.9 g/dL (3.4-5.0); Alkaline Phosphatase 82 U/L (46-116); Anion Gap 8.4 mmol/L (3-11); BUN 11 mg/dL (7-18); CO2 26.6 mmol/L (21.0-32.0); Calcium 9.5 mg/dL (8.5-10.1); Chloride 107 mmol/L (98-107); Glucose 126 mg/dL (74-106); Lipase 135 U/L (73-393); Potassium 3.8 mmol/L (3.5-5.1); Sodium 142 mmol/L (136-145); Total Protein 7.5 g/dL (6.4-8.2)
[2020-11-04 21:51] LABS: PSA, Screening 0.8 ng/mL (0.0-4.5)
== END 2020-11-04 11:29 | disposition home or self-care (01) ==
LOC: LBN 11:28
PROVIDERS: PCP Nurse Practitioner Family; Visit Provider Nurse Practitioner Family
DX: R10.32 Left lower quadrant pain (principal); N40.0 Benign prostatic hyperplasia without lower urinary tract symptoms; R39.198 Other difficulties with micturition; Z12.5 Encounter for screening for malignant neoplasm of prostate
CPT/HCPCS: 80053; 83690; 84153; 85025

== ENCOUNTER 2020-11-05 16:51 | Emergency (ER) | payer MEDICARE, MEDICAID, SELFPAY ==
[2020-11-05] VITALS (16 sets, daily range): BP systolic 145–178; BP diastolic 81–119; PULSE 79–102; RESP 11–16; TEMP 36.7; O2SAT 93–98
--- NOTE | 2020-11-05 16:54 | W.ED.GENAD ---
Discharge Plan Disposition Patient Disposition: HOME Condition: Poor Discharge Details Clinical Impression: Multiple myeloma not having achieved remission, Abdominal pain, Mass of spine Primary Care Provider: Olga Ramos ED Provider: Sanjana Gerardo Home Meds and New Rx's Prescriptions: New oxycodone 5 mg tablet 5 mg PO Q6H PRN (Reason: pain) Qty: 14 RF: 0 Narcan 4 mg/actuation spray,non-aerosol 1 spray intranasal Q2-3M PRN (Reason: opioid overdose) Qty: 2 RF: 0 Continued docusate sodium [Colace] 100 mg capsule 100 mg PO BID PRN (Reason: constipation) Qty: 60 RF: 0 eszopiclone [Lunesta] 1 mg tablet 1 mg PO QHS Qty: 30 RF: 0 melatonin 3 mg capsule 3 mg PO HS PRN (Reason: sleep) Qty: 30 RF: 0 Eliquis 5 mg tablet See Rx Instructions PO .COMPLEX Qty: 180 RF: 3 carisoprodol 350 mg tablet 350 mg PO TID PRN (Reason: muscle pain) Qty: 42 RF: 2 bisacodyl [Dulcolax (bisacodyl)] 5 mg tablet,delayed release (DR/EC) 5 mg PO DAILY PRN (Reason: constipation) Qty: 30 RF: 0 magnesium citrate Solution 150 - 300 ml PO DAILY PRN (Reason: constipation) Qty: 296 RF: 0 cholecalciferol (vitamin D3) [Vitamin D3] 2,000 UNIT tablet 2,000 unit PO DAILY Qty: 90 RF: 3 acyclovir 400 mg tablet 400 mg PO BID RF: 0 fluticasone propionate [Flonase Allergy Relief] 50 mcg/actuation spray,suspension 1 - 2 spray NS DAILY PRN (Reason: nasal congestion) Qty: 1 RF: 6 prochlorperazine maleate [Compazine] 10 mg tablet 10 mg PO Q6H PRNRF: 0 zolpidem 12.5 mg tablet,ext release multiphase 10 mg PO QHS PRNRF: 0 magnesium oxide 400 mg (241.3 mg magnesium) tablet 800 mg PO DAILY Qty: 180 RF: 3 enalapril maleate 20 mg tablet 20 mg PO DAILY Qty: 90 RF: 3 pyridoxine (vitamin B6) [Vitamin B-6] 50 mg tablet 50 mg PO DAILY Qty: 90 RF: 3 calcium carbonate [Tums] 200 mg calcium (500 mg) tablet,chewable 200 mg PO DAILY PRN (Reason: dyspepsia) RF: 0 pomalidomide 4 mg capsule 4 mg PO DAILY RF: 0 dexamethasone [Decadron] 4 mg tablet 40 mg PO .weekly RF: 0 diphenhydramine HCl [Benadryl] 25 mg capsule 25 mg PO Q6H PRNRF: 0 omeprazole 40 mg capsule,delayed release(DR/EC) 40 mg PO DAILY RF: 0 clindamycin phosphate 1 % lotion 1 applic TP DAILY PRN (Reason: recurrent skin infection) Qty: 60 RF: 0 carisoprodol [Soma] 350 mg tablet 350 mg PO TID PRN (Reason: muscle pain) Qty: 30 RF: 1 oxycodone 5 mg tablet 5 mg PO BID MDD 2 tabs PRN (Reason: pain) Qty: 30 RF: 0 polyethylene glycol 3350 [Miralax] 17 gram/dose powder 17 g PO DAILY Qty: 850 RF: 3 prednisone 10 mg tablet 20 mg PO DAILY RF: 0 melatonin 10 mg tablet 3 mg PO HS PRN (Reason: sleep) RF: 0 Discharge Instructions Instructions: Abdominal Pain (ED) Additional Instructions: Encourage water intake. Please continue with pain medication as previously prescribed. I have refilled your oxycodone online. Take this med frequently. Please not drive will take this medication. Keep in a safe place. Take only as prescribed. If you develop sensation changes, difficulty urinating, change in bowel or bladder habits, fever/chills or other new/worsening symptoms please seek care urgently once again. Otherwise, please follow-up with Dr. Rhodes on Sunday regarding the findings on your imaging. Referrals: Olga Ramos NP [Primary Care Provider] - Medical Decision Making Patient is a pleasant 65-year-old male presenting with chief complaint of abdominal pain. Patient's past medical history significant for multiple myeloma not having achieved remission, cirrhosis of liver, portal hypertension, JEFF, hepatitis C, hepatic encephalopathy, depression. He states that he has had difficulty with constipation for quite some time that has progressively been worsening. He states that he did have a soft bowel movement today. His primary care has put him on a MiraLAX to twice daily regimen which does seem to be helping. He denies any melena or hematochezia. However, he did state that he had bleeding from hemorrhoids approximately 2 weeks ago. He denies any nausea vomiting. Reports 26 pound weight loss over the past month. Reports that while p.o. intake does not worsen his abdominal pain directly, the bloating he can experience later and subsequent constipation does worsen his symptoms. He reports that he feels improved when laying on his left side. Also states that he has had an change in his ejaculation that he feels may be attributed to this. He denies any change in urinary habits. Patient was seen by primary care 2 days ago. Baseline labs were performed yesterday. Patient been taking oxycodone twice daily described by palliative care which she states greatly helped comfort. However, he has been trying to use this very sparingly. Patient is not currently receiving any treatment for his multiple myeloma. Chart review shows that palliative care and primary care were concerned about tension partial bowel obstruction and recommended a CT scan which cannot be completed for a week prompting the patient to come in here for evaluation today. On exam, patient appears nontoxic. He is hypertensive at 178/119. He does report that he is not been taking his antihypertensives as prescribed. Reports multiple missed doses of his medications recently associated with his increasing discomfort. Lung sounds are clear. Normal cardiac exam. No lower extremity edema or calf tenderness. Abdomen is benign. No pain is elicited with palpation. Normal bowel sounds. Plan to obtain CT scan. Will update some of the lab today. We will give her IV morphine to help with discomfort. Differential diagnosis includes diverticulitis, partial bowel obstruction, mass affect, kidney stone, chronic ischemia. Patient does report that the pain can radiate up towards the left flank. At this point, his exam is not consistent with an acute Labs reviewed. No leukocytosis, stable H&H. Contacted by radiologist who is concerned for left L1 cord compression secondary to mass effect from what appears to be metastatic lesions. Lesion above left hip, multiple other metastatic lesions. ? Cord compression. FINDINGS: Lungs: The visualized lung bases are clear. Aorta: Minimal anterior distal atherosclerotic calcifications of the abdominal aorta without evidence for aneurysm or dissection. Minimal calcifications in the origin of the right common iliac artery and near the left iliac artery bifurcation. Celiac trunk and mesenteric arteries: The celiac artery is patent with conventional hepatic artery anatomy. The SMA and ALFRED are patent. Renal arteries: Two patent separate right renal arteries. Single patent left renal artery that immediately bifurcates near the ostium. Right iliac arteries: See Aorta finding. Left iliac arteries: Distal left common iliac artery focal eccentric aneurysm measuring 8 mm, best seen on series 5, image 678. Liver: Lobular cirrhotic liver with generalized hepatic steatosis. Gallbladder and bile ducts: Unremarkable. No calcified stones. No ductal dilation. Pancreas: Mild fatty atrophy of the pancreas. Spleen: Splenic varices and mild splenomegaly at 14 cm due to portal hypertension. Adrenal glands: Unremarkable. No mass. Kidneys and ureters: Multiple simple bilateral renal cortical cysts. The largest posteroinferior left lower pole cyst measures 3.3 cm. Stomach and bowel: Fat containing bilateral inguinal hernias without evidence for bowel involvement. Fat containing umbilical hernia without evidence for bowel involvement. Scattered sigmoid diverticula. No acute diverticulitis. Distal colon anastomosis. No tumor at the staple line. Appendix: Normal appendix. No appendicitis. Intraperitoneal space: Unremarkable. No free air. No significant fluid collection. Lymph nodes: Unremarkable. No enlarged lymph nodes. Urinary bladder: Unremarkable. No mass. Reproductive: Unremarkable as visualized. Bones/joints: Large lobulated left L1 pedicle metastasis with growth into the right spinal canal with moderate cord compression at this level. Mass measures 4.1 x 5.0 cm on series 4, image 38. Associated left L1 transverse process pedicle destruction. Portion of the posteroinferior tumor grows into the left erector spinae muscle. Right L2 transverse process metastasis measures 2.1 x 3.5 cm. Superior right iliac bone 1.8 cm extra osseous metastasis best seen on series 4, image 58. Superoposterior left acetabular metastasis measures 2.4 cm just above the hip joint. Left proximal femur 1.6 cm metastasis. Central S1 metastasis measures 2.7 cm. IMPRESSION: 1. Large 4.1 x 5.0 cm left L1 pedicle mass with moderate left spinal cord compression. Destruction of the pedicle and transverse process. Adjacent invasion into the left erector spinous muscle. 2. Exophytic right L2 transverse process metastasis. 3. Multiple pelvic metastases including a superoposterior left acetabular lesion above the left hip joint. Superior right iliac bone 1.8 cm metastasis. 4. Cirrhosis and sequelae of portal hypertension with left upper quadrant varices and splenomegaly. 5. Incidental tiny posterior distal left common iliac artery eccentric aneurysm measuring 8 mm. Otherwise, no significant vascular pathology. 6. Stable distal colon anastomosis. Scattered sigmoid diverticula Plan 50 findings at length with the patient. He would like to follow-up closely with oncology. He has no saddle paresthesias. Strength equal bilaterally in lower extremities. He is noted to his ambulation. 63 cc 15 minutes after voiding. Patient I discussed treatment options. He would like to be discharged home at this time. Patient did have a large bowel movement, he feels that this is since being on the MiraLAX, and is feeling better regarding his abdominal discomfort. He and I discussed changing the dosing of the MiraLAX as he is concerned that this is was been causing increased bloating and gas. He and I also discussed pain management for his back and pelvic pain is likely associated with the metastatic lesions noted on imaging today. Patient states that 1 oxycodone has been working very well for him. I will refill this as he states he only has a few pills left. Patient does not drink patient does not drive will take this medication. Will prescribe Narcan as well. We discussed activities that he should avoid. He will follow-up closely with oncology on Sunday. Strict return precautions were discussed. All his questions and concerns were addressed and he is in agreement this plan. [facility] General Mode of arrival: ambulatory. Date/Time Provider Initiated Documentation: 11/05/20 16:54. Limitations to Documentation: no limitations. Information obtained by: patient, RN notes reviewed and old records reviewed. History of Present Illness 65 year old M presents to the emergency department with the chief complaint of abdominal pain, described as severe, with intensity rated at 5. Quality is described as aching (and bloating), and is localized to the abdomen. Patient reports radiation to back. Patient started experiencing this day(s) and it has been constant. other things that improve symptom(s), (laying on left side) Eating worsens symptoms . Patient notes loss of appetite (increases discomfort); denies chest pain, cough, fever/chills, nausea/vomiting, shortness of breath and weakness. Patient did receive the following treatments prior to arrival, none Related Data Home Medications Medication Instructions Recorded Confirmed cholecalciferol (vitamin D3) 2,000 unit PO DAILY #90 tab-cap 10/31/17 11/05/20 [Vitamin D3] acyclovir 400 mg tablet 400 mg PO BID tab 06/17/18 11/05/20 fluticasone propionate 50 1 - 2 spray NS DAILY PRN #1 unit 12/23/18 11/05/20 mcg/actuation nasal spray,suspension prochlorperazine maleate 10 mg 10 mg PO Q6H PRN 06/19/19 11/05/20 tablet zolpidem 12.5 mg tablet,extended 10 mg PO QHS PRN 07/28/19 11/05/20 release,multiphase magnesium oxide 400 mg (241.3 mg 800 mg PO DAILY #180 tab-cap 01/09/20 11/05/20 magnesium) tablet melatonin 3 mg PO HS PRN 04/21/20 11/05/20 prednisone 20 mg PO DAILY 04/21/20 11/05/20 enalapril maleate 20 mg tablet 20 mg PO DAILY #90 tab-cap 06/21/20 11/05/20 pyridoxine (vitamin B6) 50 mg 50 mg PO DAILY #90 tab-cap 07/02/20 11/05/20 tablet calcium carbonate 200 mg calcium 200 mg PO DAILY PRN tab 08/05/20 11/05/20 (500 mg) chewable tablet dexamethasone 4 mg tablet 40 mg PO .weekly tab 08/05/20 11/05/20 diphenhydramine HCl 25 mg capsule 25 mg PO Q6H PRN 08/05/20 11/05/20 omeprazole 40 mg capsule,delayed 40 mg PO DAILY 08/05/20 11/05/20 release pomalidomide 4 mg capsule 4 mg PO DAILY 08/05/20 11/05/20 apixaban 5 mg tablet See Rx Instructions PO .COMPLEX 08/26/20 11/05/20 #180 tab clindamycin phosphate 1 % lotion 1 applic TP DAILY PRN #60 ml 09/03/20 11/05/20 carisoprodol 350 mg tablet 350 mg PO TID PRN #42 tab 09/17/20 11/05/20 docusate sodium 100 mg capsule 100 mg PO BID PRN #60 cap 10/01/20 11/05/20 bisacodyl 5 mg tablet,delayed 5 mg PO DAILY PRN #30 tab 10/22/20 11/05/20 release magnesium citrate 150 - 300 ml PO DAILY PRN #296 ml 10/22/20 11/05/20 carisoprodol 350 mg tablet 350 mg PO TID PRN #30 tab 10/29/20 11/05/20 oxycodone 5 mg tablet 5 mg PO BID PRN #30 tab MDD 2 tabs 10/29/20 11/05/20 polyethylene glycol 3350 17 17 g PO DAILY #850 g 11/03/20 11/05/20 gram/dose oral powder eszopiclone 1 mg tablet 1 mg PO QHS #30 tab 11/04/20 11/05/20 melatonin 3 mg capsule 3 mg PO HS PRN #30 cap 11/04/20 11/05/20 naloxone [Narcan] 1 spray INTRANASAL Q2-3M PRN #2 ea 11/05/20 oxycodone 5 mg PO Q6H PRN #14 tab 11/05/20 Previous Rx's Medication Instructions Recorded cholecalciferol (vitamin D3) 2,000 unit PO DAILY #90 tab-cap 10/31/17 [Vitamin D3] fluticasone propionate 50 1 - 2 spray NS DAILY PRN #1 unit 12/23/18 mcg/actuation nasal spray,suspension magnesium oxide 400 mg (241.3 mg 800 mg PO DAILY #180 tab-cap 01/09/20 magnesium) tablet enalapril maleate 20 mg tablet 20 mg PO DAILY #90 tab-cap 06/21/20 pyridoxine (vitamin B6) 50 mg 50 mg PO DAILY #90 tab-cap 07/02/20 tablet apixaban 5 mg tablet See Rx Instructions PO .COMPLEX 08/26/20 #180 tab clindamycin phosphate 1 % lotion 1 applic TP DAILY PRN #60 ml 09/03/20 carisoprodol 350 mg tablet 350 mg PO TID PRN #42 tab 09/17/20 docusate sodium 100 mg capsule 100 mg PO BID PRN #60 cap 10/01/20 bisacodyl 5 mg tablet,delayed 5 mg PO DAILY PRN #30 tab 10/22/20 release magnesium citrate 150 - 300 ml PO DAILY PRN #296 ml 10/22/20 carisoprodol 350 mg tablet 350 mg PO TID PRN #30 tab 10/29/20 oxycodone 5 mg tablet 5 mg PO BID PRN #30 tab MDD 2 tabs 10/29/20 polyethylene glycol 3350 17 17 g PO DAILY #850 g 11/03/20 gram/dose oral powder eszopiclone 1 mg tablet 1 mg PO QHS #30 tab 11/04/20 melatonin 3 mg capsule 3 mg PO HS PRN #30 cap 11/04/20 naloxone [Narcan] 1 spray INTRANASAL Q2-3M PRN #2 ea 11/05/20 oxycodone 5 mg PO Q6H PRN #14 tab 11/05/20 Allergies Allergy/AdvReac Type Severity Reaction Status Date / Time Sulfa (Sulfonamide Allergy Unknown told rx as Verified 11/05/20 17:07 Antibiotics) an infant General DAMON: 3 Review of Systems Constitutional Constitutional: Reports as per HPI, Denies chills, Denies fatigue, Denies fever(s), Denies headache(s) and Reports weight loss ENT Ears, Nose, Mouth, and Throat: Denies headache(s) Cardiovascular Cardiovascular: Reports as per HPI, Denies chest pain and Denies dyspnea Respiratory Respiratory: Reports as per HPI, Denies cough and Denies dyspnea Gastrointestinal Gastrointestinal: Reports as per HPI Genitourinary Genitourinary: Denies system reviewed and no additional complaints, except as documented (patient denies any change in urinary habits) Musculoskeletal Musculoskeletal: Reports as per HPI and Denies back pain Integumentary/Breasts Skin/Breast: Reports as per HPI and Denies rash Neurologic Neurologic: Reports as per HPI and Denies headache(s) Endocrine Endocrine: Denies fatigue [facility] Medical History Adult BMI > 30 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, 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 Cirrhosis of liver (07/26/15) Due to hep C (s/p tx, see historical problems) & EtOH Followed by [facility] GI Screening EGD 07/28/15: no evidence of varices MELD: 7 (as of 04/10/2017) Should have influenza vaccination annually & pneumonia vaccination [id number] Depression (08/06/15) Sertraline in the past Essential hypertension 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 --> tx as DVT w/ indefinite anticoagulation due to cancer Hepatic encephalopathy (07/26/15) Hepatitis C (05/12/15) Genotype 2, s/p tx [facility] with SVR History of alcohol abuse 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 Hypomagnesemia (03/20/16) Muscle cramps Insomnia Sleep Clinic [facility] C-PAP Multiple myeloma not having achieved remission (09/13/17) 01/29/20 F/U with Dr Younger,[facility] Hematology Obstructive sleep apnea syndrome, mild (07/26/17) unable to tolerate C Pap Ambien agreement through sleep clinic Other chronic pain (08/06/15) Multifactorial, attributed to chronic Hep C, h/o chikungunya infxn, & OA Portal hypertension (01/20/16) EGD 07/2015 with recommendation to repeat in 2-3 years (07/2018) per [facility] GI Renal cyst, left (06/01/15) abd US 05/31/15 Vitamin D deficiency (03/07/16) Surgical History Colectomy (08/20/05) fistula repair-pt unsure of exact date Colonoscopy - MAC (06/04/15) LIZETTE elbow surgery reattached tendon R knee surgery osteochondritis desicans L knee 1974 meniscus surgery L 1997 ORIF and cementing pathologic proximal humerus fracture (09/05/17) [facility] Dr. Mathis shoulder surgery L shoulder Status post cataract extraction and insertion of intraocular lens of left eye (12/30/18) toe surgery torn tendon 2nd toe R foot Family History Grandfather Diabetes Mother , Suicide Mental disorder Father No problems noted. Social History Smoking/Tobacco Use Status: Never Smoking risk assessment performed?: Yes Alcohol Intake: former Drug use: Daily Substance use type: marijuana Details: past hx IV drug use/ in remission. Caregiver/Support person: No Communication Needs: None Pets and animals: No Current gender identity: male What type of physical activity do you participate in: none Seatbelt use: always Water heater temp set <120 deg: Yes Working smoke detector in home: Yes Fire extinguisher in home: Yes Carbon monox detector in home: Yes Firearms in home: Yes Firearms unloaded and locked: Yes Do you feel safe at home: Yes Do you feel safe in your relationship?: Yes Exam Const General: cooperative, healthy appearing, comfortable, no acute distress, well developed and anxious Nutritional Appearance: well nourished and overweight Orientation: alert and awake [facility] Head: normal to inspection Mouth: moist mucous membranes Resp Effort & Inspection: normal respiratory effort, able to speak in complete sentences and no respiratory distress Auscultation: clear to auscultation bilaterally, no rales, no rhonchi and no wheezes Cardio Rate: regular rate Rhythm: regular rhythm Heart Sounds: S1 normal and S2 normal GI Inspection: normal to inspection Palpation: soft, no hepatosplenomegaly, not firm, no guarding, no pulsatile masses, not rigid and nontender Percussion: normal to percussion Auscultation: normal bowel sounds Back/Spine/Pelvis Back: no CVA tenderness Skin General skin exam: no rashes or lesions noted Trauma: no lacerations or abrasions Neuro General: patient alert and patient awake Cognition: normal cognition Speech: speech normal Gait: normal gait Extrem General: normal to inspection, capillary refill normal, no pedal edema, no calf tenderness and normal gait Psych Appearance: grossly normal and well kempt Mental Status: mental status grossly normal Speech and Movement: speech and movement normal
--- NOTE | 2020-11-05 17:30 | DI.CT_ITS ---
EXAM: CT ABDOMEN PELVIS CTA CLINICAL HISTORY: acute on chronic LLQ pain and bloating. TECHNIQUE: Imaging Protocol: Axial computed tomography images with coronal and sagittal reformatted images were created and reviewed CONTRAST MATERIAL: Intravenous: Omnipaque 350 Contrast volume:100 ml Oral: None COMPARISON: CT UPPER ABD W/WO CONTRAST(P) from 06/07/2015 FINDINGS: ABDOMEN: There is no ascites. LIVER: There are no focal hepatic lesions nor dilatation of intrahepatic ducts. GALLBLADDER/BILIARY: No obvious gallbladder pathology. CBD is not dilated. PANCREAS: No evidence of pancreatic mass nor dilatation of the pancreatic duct. SPLEEN: Spleen is not enlarged. There are no intrasplenic lesions. Splenic and portal veins are gabriel nt. ADRENALS: There are no significant adrenal masses. KIDNEYS: No cysts evident. No calculi nor hydronephrosis. No solid renal masses. LYMPH NODES: There is no retroperitoneal nor para-aortic adenopathy. No obvious mesenteric masses. ABDOMINAL WALL/GI: No evidence of significant anterior abdominal wall hernia. No bowel obstruction. PELVIS: LYMPH NODES: There is no intrapelvic nor inguinal adenopathy. GI: No evidence of appendicitis.No evidence of sigmoid diverticulitis. URINARY BLADDER: No calculi nor masses evident REPRODUCTIVE: OSSEOUS: No significant osseous lesions. IMPRESSION: 1. 2. 3. 4. RADIATION DOSE DELIVERED: 2,330.39mGy.cm Total DLP 2,330.39mGy.cm Total DLP DATA REPOSITORY: All CT scans at this facility are submitted to the National Radiology Data Registry (NRDR) Dose Index Registry (DIR) with the [employer] ([employer]). RADIATION OPTIMIZATION: All CT scans at this facility use at least one of these dose optimization te chniques: automated exposure control; mA and/or kV adjustment per patient size (includes targeted exa ms where dose is matched to clinical indication); or iterative reconstruction.
[2020-11-05] MEDS: Lactated Ringers 1,000 ML 250 ML IV (17:55)
[2020-11-05 18:13] LABS: Lactate 1.4 mmol/L (0.6-1.4)
[2020-11-05 18:14] LABS: Abs Immature Grans 0.01 10^3/uL (0.0-0.06); Absolute Basophil Count 0.02 10^3/uL (0.0-0.2); Absolute Eosinophil Count 0.16 10^3/uL (0.0-0.7); Absolute Monocyte Count 0.61 10^3/uL (0.1-0.8); Absolute Neutrophil Count 3.87 10^3/uL (1.2-6.7); Basophils % 0.3; Eosinophils % 2.6; HCT 47.5 % (40.0-50.0); HGB 16.2 g/dL (13.5-17.5); Immature Grans % 0.2; Lymphocytes % 23.1; MCH 30.9 pg (27.0-33.0); MCHC 34.1 % (32.0-36.0); MCV 90.5 fL (80-95); MPV 11.6 fL (8.0-11.0); Neutrophils % 63.8; Nucleated RBC 0 %; Platelet Count 148 10^3/uL (130-400); RBC 5.25 10^6/uL (4.36-5.78); RDW 11.6 % (11.8-14.1); RDW-SD 38.7 fL; WBC 6.07 10^3/uL (4.4-10.8)
[2020-11-05 18:24] LABS: Anion Gap 9.5 mmol/L (3-11); BUN 9 mg/dL (7-18); CO2 27.5 mmol/L (21.0-32.0); Calcium 9.7 mg/dL (8.5-10.1); Chloride 105 mmol/L (98-107); Glucose 117 mg/dL (74-106); Potassium 3.8 mmol/L (3.5-5.1); Sodium 142 mmol/L (136-145)
[2020-11-05] MEDS: Omnipaque 350 MG/ML 100 ML BTL IJ (18:34)
[2020-11-05] MEDS: Normal Saline - Diluent 50 ML VIAL IV (18:35)
--- NOTE | 2020-11-05 19:39 | DI.VRAD_ITS ---
PROCEDURE INFORMATION: Exam: CT Angiography Abdomen and Pelvis With Contrast Exam date and time: 11/05/2020 6:44 PM Age: 65 years old Clinical indication: Abdominal pain; Localized; Left lower quadrant (llq); Prior surgery; Surgery date: 6+ months; Patient HX: Per PT: S/P abd surgery 8-9yrs ago; Acute on chronic llq pain and bloating TECHNIQUE: Imaging protocol: Computed tomographic angiography of the abdomen and pelvis with contrast material. 3D rendering (Not supervised by radiologist): MIP and/or 3D reconstructed images were created by the technologist. COMPARISON: CR XR HIP RT COMPLETE AP PELVIS 05/06/2020 2:31 PM FINDINGS: Lungs: The visualized lung bases are clear. Aorta: Minimal anterior distal atherosclerotic calcifications of the abdominal aorta without evidence for aneurysm or dissection. Minimal calcifications in the origin of the right common iliac artery and near the left iliac artery bifurcation. Celiac trunk and mesenteric arteries: The celiac artery is patent with conventional hepatic artery anatomy. The SMA and ALFRED are patent. Renal arteries: Two patent separate right renal arteries. Single patent left renal artery that immediately bifurcates near the ostium. Right iliac arteries: See Aorta finding. Left iliac arteries: Distal left common iliac artery focal eccentric aneurysm measuring 8 mm, best seen on series 5, image 678. Liver: Lobular cirrhotic liver with generalized hepatic steatosis. Gallbladder and bile ducts: Unremarkable. No calcified stones. No ductal dilation. Pancreas: Mild fatty atrophy of the pancreas. Spleen: Splenic varices and mild splenomegaly at 14 cm due to portal hypertension. Adrenal glands: Unremarkable. No mass. Kidneys and ureters: Multiple simple bilateral renal cortical cysts. The largest posteroinferior left lower pole cyst measures 3.3 cm. Stomach and bowel: Fat containing bilateral inguinal hernias without evidence for bowel involvement. Fat containing umbilical hernia without evidence for bowel involvement. Scattered sigmoid diverticula. No acute diverticulitis. Distal colon anastomosis. No tumor at the staple line. Appendix: Normal appendix. No appendicitis. Intraperitoneal space: Unremarkable. No free air. No significant fluid collection. Lymph nodes: Unremarkable. No enlarged lymph nodes. Urinary bladder: Unremarkable. No mass. Reproductive: Unremarkable as visualized. Bones/joints: Large lobulated left L1 pedicle metastasis with growth into the right spinal canal with moderate cord compression at this level. Mass measures 4.1 x 5.0 cm on series 4, image 38. Associated left L1 transverse process pedicle destruction. Portion of the posteroinferior tumor grows into the left erector spinae muscle. Right L2 transverse process metastasis measures 2.1 x 3.5 cm. Superior right iliac bone 1.8 cm extra osseous metastasis best seen on series 4, image 58. Superoposterior left acetabular metastasis measures 2.4 cm just above the hip joint. Left proximal femur 1.6 cm metastasis. Central S1 metastasis measures 2.7 cm. IMPRESSION: 1. Large 4.1 x 5.0 cm left L1 pedicle mass with moderate left spinal cord compression. Destruction of the pedicle and transverse process. Adjacent invasion into the left erector spinous muscle. 2. Exophytic right L2 transverse process metastasis. 3. Multiple pelvic metastases including a superoposterior left acetabular lesion above the left hip joint. Superior right iliac bone 1.8 cm metastasis. 4. Cirrhosis and sequelae of portal hypertension with left upper quadrant varices and splenomegaly. 5. Incidental tiny posterior distal left common iliac artery eccentric aneurysm measuring 8 mm. Otherwise, no significant vascular pathology. 6. Stable distal colon anastomosis. Scattered sigmoid diverticula. The study was personally discussed on the telephone with MALLIKA MELENDEZ on 11/05/2020 7:36 PM EDT. The results were understood and acknowledged. Known history of multiple myeloma, therefore these metastases all represent myeloma lesions. Dictated and Authenticated by: Guy Todd MD. Ordering:PHOEBE Allan MD
--- NOTE | 2020-11-05 20:29 | NUR.NOTE ---
Nursing Note: Bladder scan x 3 reveals 63cc
== END 2020-11-05 21:10 | disposition home or self-care (01) ==
PROVIDERS: Emergency Provider Physician Assistant; PCP Nurse Practitioner Family
DX: R10.9 Unspecified abdominal pain (principal); R93.7 Abnormal findings on diagnostic imaging of other parts of musculoskeletal system; C90.00 Multiple myeloma not having achieved remission
CPT/HCPCS: 80048; 96361; 96374; 99285; 74174; 83605; 85025; 99284; J3490

== ENCOUNTER 2020-11-10 13:30 | Emergency (ER) | payer MEDICARE, MEDICAID, SELFPAY ==
[2020-11-10] VITALS (25 sets, daily range): BP systolic 123–162; BP diastolic 61–85; PULSE 85–109; RESP 16; TEMP 36.2; O2SAT 87–97
--- NOTE | 2020-11-10 13:46 | ED.GENADUL_ITS ---
Discharge Plan Discharge Details Chief Complaint: Abd Prob Primary Care Provider: Olga Ramos ED Provider: Sanjana Gerardo Home Meds and New Rx's Prescriptions: No Action docusate sodium [Colace] 100 mg capsule 100 mg PO BID PRN (Reason: constipation) Qty: 60 RF: 0 eszopiclone [Lunesta] 1 mg tablet 1 mg PO QHS Qty: 30 RF: 0 melatonin 3 mg capsule 3 mg PO HS PRN (Reason: sleep) Qty: 30 RF: 0 Eliquis 5 mg tablet See Rx Instructions PO .COMPLEX Qty: 180 RF: 3 bisacodyl [Dulcolax (bisacodyl)] 5 mg tablet,delayed release (DR/EC) 5 mg PO DAILY PRN (Reason: constipation) Qty: 30 RF: 0 magnesium citrate Solution 150 - 300 ml PO DAILY PRN (Reason: constipation) Qty: 296 RF: 0 cholecalciferol (vitamin D3) [Vitamin D3] 2,000 UNIT tablet 2,000 unit PO DAILY Qty: 90 RF: 3 acyclovir 400 mg tablet 400 mg PO BID RF: 0 zolpidem 12.5 mg tablet,ext release multiphase 10 mg PO QHS PRNRF: 0 magnesium oxide 400 mg (241.3 mg magnesium) tablet 800 mg PO DAILY Qty: 180 RF: 3 enalapril maleate 20 mg tablet 20 mg PO DAILY Qty: 90 RF: 3 pyridoxine (vitamin B6) [Vitamin B-6] 50 mg tablet 50 mg PO DAILY Qty: 90 RF: 3 calcium carbonate [Tums] 200 mg calcium (500 mg) tablet,chewable 200 mg PO DAILY PRN (Reason: dyspepsia) RF: 0 clindamycin phosphate 1 % lotion 1 applic TP DAILY PRN (Reason: recurrent skin infection) Qty: 60 RF: 0 carisoprodol [Soma] 350 mg tablet 350 mg PO TID PRN (Reason: muscle pain) Qty: 30 RF: 1 polyethylene glycol 3350 [Miralax] 17 gram/dose powder 17 g PO DAILY Qty: 850 RF: 3 oxycodone 5 mg tablet 5 mg PO Q6H PRN (Reason: pain) Qty: 14 RF: 0 Narcan 4 mg/actuation spray,non-aerosol 1 spray intranasal Q2-3M PRN (Reason: opioid overdose) Qty: 2 RF: 0 Discharge Data Discharge Date/Time-TO BE ENTERED AT DEPARTURE: 11/10/20 17:17 Medical Decision Making Patient is a 55-year-old gentleman presenting today from the cancer center with plan to [facility]. Patient was seen here on 10/25/2018 at which time he underwent a CT scan for his abdominal discomfort. Patient was noted to have a mass on the CT of the level of L1 with moderate left spinal cord compression. At the time erick meza was seen here, his symptoms have completely resolved after large bowel movement prior to discharge. At the time he was seen, but not directly back pain. He did not have any lower extremity weakness. No difficulty urinating. No difficulty with ambulation. He was here primarily for left lower quadrant pain. Disposition was discussed with patient at that time he preferred to follow-up with his oncologist, Dr. Rhodes. She was evaluated by Dr. Post today who is concerned that he needed urgent radiation and consulted with oncology at [facility]. Dr. Cruz has accepted the patient in transfer but they are unable to arrange for transportation to their facility prompting them to bring him to the emergency department. Past medical history pertinent for greater saphenous vein embolism, multiple myeloma, portal hypertension, liver cirrhosis, JEFF, hepatitis C, depression. Patient is not currently receiving treatment for his multiple myeloma. He will like to wait decided to stop treatment few months ago secondary to symptoms associated with the medication. Is being followed by oncology at the [facility]. Patient is being followed by palliative care. On exam, patient appears nontoxic. Lungs are clear, normal cardiac exam. No abdominal pain on palpation. No pain with palpation about the spine. No saddle paresthesias, intact rectal tone. 5 of 5 strength in lower extremities, particularly with flexion of the left hip. Sensation on the abdomen is intact. Consulted with [facility]. Patient has accepted to the oncology unit. Patient was given steroids prior to arrival. Plan is for patient to undergo radiation as it is possible for a mass. I discussed this with the patient who is in agreement. Patient does have chronic discomfort for which she is been on oxycodone for quite some time. Patient is concerned about the transport and often bradycardic can make his pain worse. We will give IV Dilaudid prior to his departure. Patient received 1 mg of Dilaudid, reported improvement. However, there was a gap of time between the medication delivered and transportation, we will augment this with a second milligram. At the time of transfer, patient is comfortable. Remains neurologically intact. Patient in agreement with this plan. HPI General Mode of arrival: EMS . Date/Time Provider Initiated Documentation: 11/10/20 13:30 . Limitations to Documentation: no limitations . Information obtained by: patient, RN/MD (contacted by oncology phycian prior to arrival), RN notes reviewed and old records reviewed . HPI Narrative: Patient is a pleasant 65 year old presenting today with c/c of continued LLQ pain. Patient was seen here 5 days ago with the same. Symptoms improve with BM. He was found to have a mass on his spine from known multiple myeloma. Patient had wanted to follow up with his oncologist to discuss this further. He was seen by Dr. Rhodes today who recommended urgent radiation and had patient brought to the ED for transportation to [facility] for admission. He denies any back pain, weakness, fevers/chills, N/V, neuropathy, change in urinary habits. Related Data Home Medications Medication Instructions Recorded Confirmed cholecalciferol (vitamin D3) 2,000 unit PO DAILY #90 tab-cap 10/31/17 11/10/20 [Vitamin D3] acyclovir 400 mg tablet 400 mg PO BID tab 06/17/18 11/10/20 zolpidem 12.5 mg tablet,extended 10 mg PO QHS PRN 07/28/19 11/10/20 release,multiphase magnesium oxide 400 mg (241.3 mg 800 mg PO DAILY #180 tab-cap 01/09/20 11/10/20 magnesium) tablet enalapril maleate 20 mg tablet 20 mg PO DAILY #90 tab-cap 06/21/20 11/10/20 pyridoxine (vitamin B6) 50 mg 50 mg PO DAILY #90 tab-cap 07/02/20 11/10/20 tablet calcium carbonate 200 mg calcium 200 mg PO DAILY PRN tab 08/05/20 11/10/20 (500 mg) chewable tablet apixaban 5 mg tablet See Rx Instructions PO .COMPLEX 08/26/20 11/10/20 #180 tab clindamycin phosphate 1 % lotion 1 applic TP DAILY PRN #60 ml 09/03/20 11/10/20 docusate sodium 100 mg capsule 100 mg PO BID PRN #60 cap 10/01/20 11/10/20 bisacodyl 5 mg tablet,delayed 5 mg PO DAILY PRN #30 tab 10/22/20 11/10/20 release magnesium citrate 150 - 300 ml PO DAILY PRN #296 ml 10/22/20 11/10/20 carisoprodol 350 mg tablet 350 mg PO TID PRN #30 tab 10/29/20 11/10/20 polyethylene glycol 3350 17 17 g PO DAILY #850 g 11/03/20 11/10/20 gram/dose oral powder eszopiclone 1 mg tablet 1 mg PO QHS #30 tab 11/04/20 11/10/20 melatonin 3 mg capsule 3 mg PO HS PRN #30 cap 11/04/20 11/10/20 naloxone [Narcan] 1 spray INTRANASAL Q2-3M PRN #2 ea 11/05/20 11/10/20 oxycodone 5 mg PO Q6H PRN #14 tab 11/05/20 11/10/20 Previous Rx's Medication Instructions Recorded cholecalciferol (vitamin D3) 2,000 unit PO DAILY #90 tab-cap 10/31/17 [Vitamin D3] magnesium oxide 400 mg (241.3 mg 800 mg PO DAILY #180 tab-cap 01/09/20 magnesium) tablet enalapril maleate 20 mg tablet 20 mg PO DAILY #90 tab-cap 06/21/20 pyridoxine (vitamin B6) 50 mg 50 mg PO DAILY #90 tab-cap 07/02/20 tablet apixaban 5 mg tablet See Rx Instructions PO .COMPLEX 08/26/20 #180 tab clindamycin phosphate 1 % lotion 1 applic TP DAILY PRN #60 ml 09/03/20 docusate sodium 100 mg capsule 100 mg PO BID PRN #60 cap 10/01/20 bisacodyl 5 mg tablet,delayed 5 mg PO DAILY PRN #30 tab 10/22/20 release magnesium citrate 150 - 300 ml PO DAILY PRN #296 ml 10/22/20 carisoprodol 350 mg tablet 350 mg PO TID PRN #30 tab 10/29/20 polyethylene glycol 3350 17 17 g PO DAILY #850 g 11/03/20 gram/dose oral powder eszopiclone 1 mg tablet 1 mg PO QHS #30 tab 11/04/20 melatonin 3 mg capsule 3 mg PO HS PRN #30 cap 11/04/20 naloxone [Narcan] 1 spray INTRANASAL Q2-3M PRN #2 ea 11/05/20 oxycodone 5 mg PO Q6H PRN #14 tab 11/05/20 Allergies Allergy/AdvReac Type Severity Reaction Status Date / Time Sulfa (Sulfonamide Allergy Unknown told rx as Verified 11/05/20 17:07 Antibiotics) an General Stated Complaint: Abd Prob DAMON: 3 Review of Systems Constitutional Constitutional: Reports as per HPI, Denies chills, Denies fever(s), Denies lethargy, Reports poor appetite and Reports weight loss Cardiovascular Cardiovascular: Reports as per HPI, Denies chest pain, Denies dyspnea and Denies dyspnea on exertion Respiratory Respiratory: Reports as per HPI, Denies chest congestion, Denies cough, Denies pain on inspiration, Denies pain with cough, Denies dyspnea, Denies dyspnea on exertion and Denies wheezing Gastrointestinal Gastrointestinal: Reports as per HPI, Reports abdominal pain, Reports change in bowel habits, Reports diarrhea, Denies nausea and Denies vomiting Genitourinary Genitourinary: Denies system reviewed and no additional complaints, except as documented (denies change in urinary habits) Musculoskeletal Musculoskeletal: Reports as per HPI and Denies back pain Integumentary/Breasts Skin/Breast: Reports as per HPI and Denies rash Neurologic Neurologic: Reports as per HPI Allergic/Immunologic Allergic/Immunologic: Denies wheezing PFSH Medical History Adult BMI > 30 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, 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 Cirrhosis of liver (07/26/15) Due to hep C (s/p tx, see historical problems) & EtOH Followed by [facility] GI Screening EGD 07/28/15: no evidence of varices MELD: 7 (as of 04/10/2017) Should have influenza vaccination annually & pneumonia vaccination [id number] Depression (08/06/15) Sertraline in the past Essential hypertension 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 --> tx as DVT w/ indefinite anticoagulation due to cancer Hepatic encephalopathy (07/26/15) Hepatitis C (05/12/15) Genotype 2, s/p tx [facility] with SVR History of alcohol abuse 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 Hypomagnesemia (03/20/16) Muscle cramps Insomnia Sleep Clinic [facility] C-PAP Multiple myeloma not having achieved remission (09/13/17) 01/29/20 F/U with Dr Younger,[facility] Hematology Obstructive sleep apnea syndrome, mild (07/26/17) unable to tolerate C Pap Ambien agreement through sleep clinic Other chronic pain (08/06/15) Multifactorial, attributed to chronic Hep C, h/o chikungunya infxn, & OA Portal hypertension (01/20/16) EGD 07/2015 with recommendation to repeat in 2-3 years (07/2018) per [facility] GI Renal cyst, left (06/01/15) abd US 05/31/15 Vitamin D deficiency (03/07/16) Surgical History Colectomy (08/20/05) fistula repair-pt unsure of exact date Colonoscopy - MAC (06/04/15) LIZETTE elbow surgery reattached tendon R knee surgery osteochondritis desicans L knee 1974 meniscus surgery L 1997 ORIF and cementing pathologic proximal humerus fracture (09/05/17) [facility] Dr. Mathis shoulder surgery L shoulder Status post cataract extraction and insertion of intraocular lens of left eye (12/30/18) toe surgery torn tendon 2nd toe R foot Family History Grandfather Diabetes Mother , Suicide Mental disorder Father No problems noted. Social History Smoking/Tobacco Use Status: Never Smoking risk assessment performed?: Yes Alcohol Intake: former Drug use: Daily Substance use type: marijuana Details: past hx IV drug use/ in remission. Caregiver/Support person: No Communication Needs: None Pets and animals: No Current gender identity: male What type of physical activity do you participate in: none Seatbelt use: always Water heater temp set <120 deg: Yes Working smoke detector in home: Yes Fire extinguisher in home: Yes Carbon monox detector in home: Yes Firearms in home: Yes Firearms unloaded and locked: Yes Do you feel safe at home: Yes Do you feel safe in your relationship?: Yes Exam Const General: cooperative, healthy appearing, comfortable, no acute distress and well developed Nutritional Appearance: well nourished and overweight Orientation: alert, awake and oriented x3 [facility] Head: normal to inspection Ears: hearing grossly normal bilaterally Mouth: moist mucous membranes Chest Chest: normal inspection of the chest, normal palpation of entire chest wall and no crepitus Resp Effort & Inspection: normal respiratory effort, able to speak in complete sentences and no respiratory distress Auscultation: clear to auscultation bilaterally, no rales, no rhonchi and no wheezes Cardio Rate: regular rate Rhythm: regular rhythm Heart Sounds: S1 normal and S2 normal GI Inspection: normal to inspection, no edema and non-distended Palpation: soft, no hepatosplenomegaly, not firm, no guarding, not rigid and nontender Auscultation: normal bowel sounds Rectal Exam: visual inspection normal and normal sphincter tone (sensation intact) Back/Spine/Pelvis Back: no CVA tenderness Thoracic/Lumbar Spine: thoracic and lumbar spine normal to inspection, No paraspinal tenderness and No lumbar spinal tenderness Skin General skin exam: no rashes or lesions noted Trauma: no lacerations or abrasions Neuro General: patient alert, patient awake, patient oriented x3, gait normal, tone normal and moves all extremities Cognition: normal cognition Speech: speech normal Gait: normal gait Motor: muscle tone normal throughout and strength 5/5 throughout Extrem General: normal to inspection, capillary refill normal, no pedal edema, no calf tenderness and normal gait Psych Appearance: grossly normal and well kempt Mental Status: mental status grossly normal Speech and Movement: speech and movement normal Course Vital Signs Vital signs: Vital Signs Temperature 36.2 C L 11/10/20 13:29 Pulse 108 H 11/10/20 13:29 Respiratory Rate 16 11/10/20 13:29 Blood Pressure 162/80 H 11/10/20 13:29 Pulse Oximetry 97 11/10/20 13:29 Temperature 36.2 C L 11/10/20 13:29 Pulse 108 H 11/10/20 13:29 Respiratory Rate 16 11/10/20 13:29 Blood Pressure 162/80 H 11/10/20 13:29 Blood Pressure Position Sitting 11/10/20 13:29 Pulse Oximetry 97 11/10/20 13:29 Oxygen Delivery Method Room Air 11/10/20 13:29 Oxygen Flow Rate 0 11/10/20 13:29 Pain Level 1 11/10/20 13:29
[2020-11-10] MEDS: HYDROmorphone 2 MG/ML VIAL 1 MG IVP ×2 (15:17→16:55)
== END 2020-11-10 17:17 ==
LOC: ER 14:38
PROVIDERS: Emergency Provider Physician Assistant; PCP Nurse Practitioner Family
DX: R10.32 Left lower quadrant pain (principal); C90.00 Multiple myeloma not having achieved remission; G89.3 Neoplasm related pain (acute) (chronic)
CPT/HCPCS: 96374; 96376; 99285; 99284

== ENCOUNTER 2020-11-22 09:22 | Emergency (ER) | payer MEDICARE, MEDICAID, SELFPAY ==
[2020-11-22 09:31] VITALS: BP 146/101; PULSE 114; RESP 20; TEMP 36.1; O2SAT 96
--- NOTE | 2020-11-22 10:15 | DI.RAD_ITS ---
EXAM: XR SHOULDER RT COMPLETE 2+V CLINICAL HISTORY: right shoulder pain, h/o hardware and surgery. TECHNIQUE: 2D digital imaging was performed. COMPARISON: CR RIGHT SHOULDER COMPLETE from 08/27/2017 CR RIGHT SHOULDER COMPLETE from 08/27/2017 CR XR CHEST 2V PA LATERAL from 08/19/2020 FINDINGS: BONES: No acute fracture is present. No bony destructive lesion is seen. Patient has a sideplate and screws transfixing an old healed proximal right humeral fracture. JOINTS: No dislocation present. Degenerative changes of the right AC joint are noted. There is a wel l corticated osseous fragment at the AC joint which appears chronic. SOFT TISSUE: Normal. IMPRESSION: No acute abnormality. DATA REPOSITORY: RADIATION DOSE DELIVERED:
[2020-11-22 11:37] LABS: Abs Immature Grans 0.18 10^3/uL (0.0-0.06); Absolute Basophil Count 0.03 10^3/uL (0.0-0.2); Absolute Eosinophil Count 0.01 10^3/uL (0.0-0.7); Absolute Monocyte Count 1.06 10^3/uL (0.1-0.8); Basophils % 0.3; Eosinophils % 0.1; HCT 49.5 % (40.0-50.0); HGB 17.1 g/dL (13.5-17.5); Immature Grans % 1.6; Lymphocytes % 4.5; MCH 31.2 pg (27.0-33.0); MCHC 34.5 % (32.0-36.0); MCV 90.3 fL (80-95); MPV 10.4 fL (8.0-11.0); Monocytes % 9.3; Neutrophils % 84.2; Nucleated RBC 0 %; Platelet Count 149 10^3/uL (130-400); RBC 5.48 10^6/uL (4.36-5.78); RDW 11.8 % (11.8-14.1); RDW-SD 38.7 fL; WBC 11.44 10^3/uL (4.4-10.8)
[2020-11-22 11:38] LABS: ESR 2 mm//hr (0-20)
[2020-11-22 11:40] LABS: Absolute Lymphocyte Count 0.51 10^3/uL (1.2-3.4); Absolute Neutrophil Count 9.63 10^3/uL (1.2-6.7)
[2020-11-22 11:47] LABS: C-Reactive Protein 0.19 mg/dL (0.0-0.3)
[2020-11-22 11:49] LABS: ALT 290 U/L (16-63); AST 81 U/L (15-37); Alkaline Phosphatase 64 U/L (46-116); Anion Gap 7.6 mmol/L (3-11); BUN 19 mg/dL (7-18); Bilirubin, Total 0.5 mg/dL (0.2-1.0); CO2 27.4 mmol/L (21.0-32.0); CREATININE 0.9 mg/dL (0.70-1.30); Calcium 8.5 mg/dL (8.5-10.1); Chloride 103 mmol/L (98-107); Glucose 110 mg/dL (74-106); Potassium 4.3 mmol/L (3.5-5.1); Sodium 138 mmol/L (136-145); Total Protein 6.4 g/dL (6.4-8.2)
--- NOTE | 2020-11-22 12:40 | ED.GENADUL_ITS ---
Discharge Plan Disposition Patient Disposition: HOME Condition: Stable Discharge Details Clinical Impression: Right shoulder pain Primary Care Provider: Olga Ramos ED Provider: Arleth Castillo Home Meds and New Rx's Prescriptions: Continued docusate sodium [Colace] 100 mg capsule 100 mg PO BID PRN (Reason: constipation) Qty: 60 RF: 0 melatonin 3 mg capsule 3 mg PO HS PRN (Reason: sleep) Qty: 30 RF: 0 Eliquis 5 mg tablet See Rx Instructions PO .COMPLEX Qty: 180 RF: 3 bisacodyl [Dulcolax (bisacodyl)] 5 mg tablet,delayed release (DR/EC) 5 mg PO DAILY PRN (Reason: constipation) Qty: 30 RF: 0 magnesium citrate Solution 150 - 300 ml PO DAILY PRN (Reason: constipation) Qty: 296 RF: 0 carisoprodol [Soma] 350 mg tablet 350 mg PO TID PRN (Reason: muscle pain) Qty: 90 RF: 1 cholecalciferol (vitamin D3) [Vitamin D3] 2,000 UNIT tablet 2,000 unit PO DAILY Qty: 90 RF: 3 zolpidem 12.5 mg tablet,ext release multiphase 12.5 mg PO QHS PRNRF: 0 enalapril maleate 20 mg tablet 20 mg PO DAILY Qty: 90 RF: 3 pyridoxine (vitamin B6) [Vitamin B-6] 50 mg tablet 50 mg PO DAILY Qty: 90 RF: 3 calcium carbonate [Tums] 200 mg calcium (500 mg) tablet,chewable 200 mg PO BID RF: 0 clindamycin phosphate 1 % lotion 1 applic TP DAILY PRN (Reason: recurrent skin infection) Qty: 60 RF: 0 polyethylene glycol 3350 [Miralax] 17 gram/dose powder 17 g PO DAILY Qty: 850 RF: 3 Narcan 4 mg/actuation spray,non-aerosol 1 spray intranasal Q2-3M PRN (Reason: opioid overdose) Qty: 2 RF: 0 magnesium oxide 400 mg (241.3 mg magnesium) tablet 128 mg PO DAILY RF: 0 sennosides-docusate sodium [Stool Softener-Stimulant Laxat] 8.6-50 mg tablet 1 tab PO BID PRNRF: 0 prochlorperazine maleate [Compazine] 10 mg Tablet 10 mg PO Q6H PRNRF: 0 No Action hydromorphone 4 mg tablet 4 mg PO Q6H MDD 4 tabs PRN (Reason: pain) Qty: 48 RF: 0 Discharge Instructions Instructions: Shoulder Pain (ED) Additional Instructions: Please return immediately to the emergency department if you develop any new or worsening symptoms, if your condition does not improve as expected, or if you become otherwise concerned. It is extremely important that you call soon as possible to make an appointment to be seen in follow-up for this visit by your primary care doctor, oncologist, and palliative care doctor as we discussed. Referrals: Olga Ramos NP [Primary Care Provider] - Discharge Data Discharge Date/Time-TO BE ENTERED AT DEPARTURE: 11/22/20 13:31 Medical Decision Making Norm Dunaway is a 65 yo man with h/o multiple myeloma presenting to the ED with right upper arm pain in area of known pathologic fx s/p surgical repair with hardware placement after spending one week in the hospital; Pt concerned for misalignment of hardware. On exam Pt is well and non-toxic appearing. Right upper arm TTP without edema, overlying skin changes. No TTP of the shoulder or elbow. RUE neurovascularly intact. Concern for worsening fx, hardware complication, chronic MSK pain 2/2 pathologic fx, other. Exam/hx at this time not c/w upper extremity DVT, septic arthritis, sepsis, ACS. Plan for xrays, screening labs. Lans non-diagnostic, xrays okay. Suspect chronic pain worsened by atypical positioning and use while hospitalized. Plan for sling, outpt f/u with oncologist and orthopedic oncologist at [facility] (Pt has upcoming scheduled appts). I had a lengthy discussion with Patient regarding return to emergency department precautions, home care, and importance of outpatient follow-up. Pt verbalizes understanding of the plan and is amenable. Patient discharged to home with clear plan for outpatient follow-up. All questions were answered. Disposition decision was made weighing the risks and benefits of hospitalization versus outpatient treatment, the risk for further decompensation, and the patient's wishes. Medical Records Medical records reviewed: Yes I reviewed the patient's medical records. Imaging Data Radiologic Study: Attestation: I personally reviewed and interpreted this imaging study as follows: Radiologist's impression: EXAM: XR SHOULDER RT COMPLETE 2+V CLINICAL HISTORY: right shoulder pain, h/o hardware and surgery. TECHNIQUE: 2D digital imaging was performed. COMPARISON: CR RIGHT SHOULDER COMPLETE from 08/27/2017 CR RIGHT SHOULDER COMPLETE from 08/27/2017 CR XR CHEST 2V PA LATERAL from 08/19/2020 FINDINGS: BONES: No acute fracture is present. No bony destructive lesion is seen. Patient has a sideplate and screws transfixing an old healed proximal right humeral fracture. JOINTS: No dislocation present. Degenerative changes of the right AC joint are noted. There is a well corticated osseous fragment at the AC joint which appears chronic. SOFT TISSUE: Normal. IMPRESSION: No acute abnormality. Lab Data Labs: Laboratory Tests Range/Units 11/22/20 11/22/20 11/22/20 11:25 11:25 11:25 WBC (4.4-10.8) 10^3/uL 11.44 H RBC (4.36-5.78) 10^6/uL 5.48 Hgb (13.5-17.5) g/dL 17.1 Hct (40.0-50.0) % 49.5 MCV (80-95) fL 90.3 MCH (27.0-33.0) pg 31.2 MCHC (32.0-36.0) % 34.5 RDW (11.8-14.1) % 11.8 Plt Count (130-400) 10^3/uL 149 MPV (8.0-11.0) fL 10.4 Immature Gran % 1.6 Neutrophils % 84.2 Lymphocytes % 4.5 Monocytes % 9.3 Eosinophils % 0.1 Basophils % 0.3 Nucleated RBC % % 0 Absolute Neutrophils (1.2-6.7) 10^3/uL 9.63 H Absolute Lymphocytes (1.2-3.4) 10^3/uL 0.51 L Absolute Monocytes (0.1-0.8) 10^3/uL 1.06 H Absolute Eosinophils (0.0-0.7) 10^3/uL 0.01 Absolute Basophils (0.0-0.2) 10^3/uL 0.03 ESR (0-20) mm//hr Sodium (136-145) mmol/L 138 Potassium (3.5-5.1) mmol/L 4.3 Chloride (98-107) mmol/L 103 Carbon Dioxide (21.0-32.0) mmol/L 27.4 Anion Gap (3-11) mmol/L 7.6 BUN (7-18) mg/dL 19 H Creatinine (0.70-1.30) mg/dL 0.9 Estimated GFR/1.73 m2 (mL/min/1.73m2) >= 60.00 Glucose (74-106) mg/dL 110 H Calcium (8.5-10.1) mg/dL 8.5 Total Bilirubin (0.2-1.0) mg/dL 0.5 AST (15-37) U/L 81 H ALT (16-63) U/L 290 H Alkaline Phosphatase (46-116) U/L 64 C-Reactive Protein (0.0-0.3) mg/dL 0.19 Total Protein (6.4-8.2) g/dL 6.4 Albumin (3.4-5.0) g/dL 3.0 L Range/Units 11/22/20 11:25 WBC (4.4-10.8) 10^3/uL RBC (4.36-5.78) 10^6/uL Hgb (13.5-17.5) g/dL Hct (40.0-50.0) % MCV (80-95) fL MCH (27.0-33.0) pg MCHC (32.0-36.0) % RDW (11.8-14.1) % Plt Count (130-400) 10^3/uL MPV (8.0-11.0) fL Immature Gran % Neutrophils % Lymphocytes % Monocytes % Eosinophils % Basophils % Nucleated RBC % % Absolute Neutrophils (1.2-6.7) 10^3/uL Absolute Lymphocytes (1.2-3.4) 10^3/uL Absolute Monocytes (0.1-0.8) 10^3/uL Absolute Eosinophils (0.0-0.7) 10^3/uL Absolute Basophils (0.0-0.2) 10^3/uL ESR (0-20) mm//hr 2 Sodium (136-145) mmol/L Potassium (3.5-5.1) mmol/L Chloride (98-107) mmol/L Carbon Dioxide (21.0-32.0) mmol/L Anion Gap (3-11) mmol/L BUN (7-18) mg/dL Creatinine (0.70-1.30) mg/dL Estimated GFR/1.73 m2 (mL/min/1.73m2) Glucose (74-106) mg/dL Calcium (8.5-10.1) mg/dL Total Bilirubin (0.2-1.0) mg/dL AST (15-37) U/L ALT (16-63) U/L Alkaline Phosphatase (46-116) U/L C-Reactive Protein (0.0-0.3) mg/dL Total Protein (6.4-8.2) g/dL Albumin (3.4-5.0) g/dL HPI General Mode of arrival: ambulatory . Date/Time Provider Initiated Documentation: 11/22/20 09:47 . Limitations to Documentation: no limitations . Information obtained by: patient . HPI Narrative: Norm Dunaway is a 65 yo man with h/o multiple myeloma currently undergoing treatment, cirrhosis, HTN presenting to the emergency department with right upper arm pain. Per Pt and record review obtained from [facility], Pt was admitted recently to [facility] for new mass at L1 and L2 with spinal cord compression in setting of known multiple myeloma. He was started on steroids and underwent palliative radiation, also had bone but biopsy on 11/11. He was discharged from [facility] on 11/15/2020. Pt reports that during his week long admission he was jostled around a lot and had to spend time resting on his right shoulder, which he typically avoids. Pt reports that he has chronic pain in his right upper arm after being diagnosed with pathologic fx in the right proximal humerus and subsequently having hardware placed. Pt reports that he is concerned that the pressure on his right arm and shoulder during admission may have caused the screws or plate in his right arm to become dislodged. He denies any other new pain, rash, joint swelling, numbness, weakness, fever, vomiting, SOB, cough. Pt reports he feels otherwise in his usual state of health. Related Data Home Medications Medication Instructions Recorded Confirmed cholecalciferol (vitamin D3) 2,000 unit PO DAILY #90 tab-cap 10/31/17 11/22/20 [Vitamin D3] zolpidem 12.5 mg tablet,extended 12.5 mg PO QHS PRN 07/28/19 11/22/20 release,multiphase enalapril maleate 20 mg tablet 20 mg PO DAILY #90 tab-cap 06/21/20 11/22/20 pyridoxine (vitamin B6) 50 mg 50 mg PO DAILY #90 tab-cap 07/02/20 11/22/20 tablet calcium carbonate 200 mg calcium 200 mg PO BID tab 08/05/20 11/22/20 (500 mg) chewable tablet apixaban 5 mg tablet See Rx Instructions PO .COMPLEX 08/26/20 11/22/20 #180 tab clindamycin phosphate 1 % lotion 1 applic TP DAILY PRN #60 ml 09/03/20 11/22/20 docusate sodium 100 mg capsule 100 mg PO BID PRN #60 cap 10/01/20 11/10/20 bisacodyl 5 mg tablet,delayed 5 mg PO DAILY PRN #30 tab 10/22/20 11/10/20 release magnesium citrate 150 - 300 ml PO DAILY PRN #296 ml 10/22/20 11/10/20 polyethylene glycol 3350 17 17 g PO DAILY #850 g 11/03/20 11/22/20 gram/dose oral powder melatonin 3 mg capsule 3 mg PO HS PRN #30 cap 11/04/20 11/22/20 Narcan 1 spray INTRANASAL Q2-3M PRN #2 ea 11/05/20 11/22/20 carisoprodol 350 mg tablet 350 mg PO TID PRN #90 tab 11/18/20 11/18/20 magnesium oxide 128 mg PO DAILY 11/22/20 11/22/20 prochlorperazine maleate 10 mg PO Q6H PRN 11/22/20 11/22/20 [Compazine] sennosides-docusate sodium [Stool 1 tab PO BID PRN 11/22/20 11/22/20 Softener-Stimulant Laxat] hydromorphone 4 mg tablet 4 mg PO Q6H PRN #48 tab MDD 4 tabs 11/25/20 11/25/20 Previous Rx's Medication Instructions Recorded cholecalciferol (vitamin D3) 2,000 unit PO DAILY #90 tab-cap 10/31/17 [Vitamin D3] enalapril maleate 20 mg tablet 20 mg PO DAILY #90 tab-cap 06/21/20 pyridoxine (vitamin B6) 50 mg 50 mg PO DAILY #90 tab-cap 07/02/20 tablet apixaban 5 mg tablet See Rx Instructions PO .COMPLEX 08/26/20 #180 tab clindamycin phosphate 1 % lotion 1 applic TP DAILY PRN #60 ml 09/03/20 docusate sodium 100 mg capsule 100 mg PO BID PRN #60 cap 10/01/20 bisacodyl 5 mg tablet,delayed 5 mg PO DAILY PRN #30 tab 10/22/20 release magnesium citrate 150 - 300 ml PO DAILY PRN #296 ml 10/22/20 polyethylene glycol 3350 17 17 g PO DAILY #850 g 11/03/20 gram/dose oral powder melatonin 3 mg capsule 3 mg PO HS PRN #30 cap 11/04/20 Narcan 1 spray INTRANASAL Q2-3M PRN #2 ea 11/05/20 carisoprodol 350 mg tablet 350 mg PO TID PRN #90 tab 11/18/20 hydromorphone 4 mg tablet 4 mg PO Q6H PRN #48 tab MDD 4 tabs 11/25/20 Allergies Allergy/AdvReac Type Severity Reaction Status Date / Time Sulfa (Sulfonamide Allergy Unknown told rx as Verified 11/22/20 09:40 Antibiotics) an General Stated Complaint: Orthopedic DAMON: 3 Review of Systems Narrative: Constitutional: denies fevers Eyes: denies eye pain ENT: denies ear pain, dental pain, sore throat Cardiovascular: denies chest pain, edema Respiratory: denies SOB, cough GI: denies abdominal pain, vomiting, diarrhea : denies flank pain MSK: denies back pain, neck pain, arthralgias, reports right upper arm pain (denies right shoulder pain, states pain in right arm becomes worse with moving right shoulder) Skin: denies rash Neuro: denies headaches, numbness, weakness [facility] Medical History Adult BMI > 30 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, 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 Cirrhosis of liver (07/26/15) Due to hep C (s/p tx, see historical problems) & EtOH Followed by [facility] GI Screening EGD 07/28/15: no evidence of varices MELD: 7 (as of 04/10/2017) Should have influenza vaccination annually & pneumonia vaccination [id number] Depression (08/06/15) Sertraline in the past Essential hypertension 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 --> tx as DVT w/ indefinite anticoagulation due to cancer Hepatic encephalopathy (07/26/15) Hepatitis C (05/12/15) Genotype 2, s/p tx [facility] with SVR History of alcohol abuse 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 Obstructive sleep apnea syndrome, mild (07/26/17) unable to tolerate C Pap Ambien agreement through sleep clinic Other chronic pain (08/06/15) Multifactorial, attributed to chronic Hep C, h/o chikungunya infxn, & OA Portal hypertension (01/20/16) EGD 07/2015 with recommendation to repeat in 2-3 years (07/2018) per [facility] GI Renal cyst, left (06/01/15) abd US 05/31/15 Vitamin D deficiency (03/07/16) Surgical History Colectomy (08/20/05) fistula repair-pt unsure of exact date Colonoscopy - MAC (06/04/15) LIZETTE elbow surgery reattached tendon R knee surgery osteochondritis desicans L knee 1973 meniscus surgery L 1997 ORIF and cementing pathologic proximal humerus fracture (09/05/17) [facility] Dr. Mathis shoulder surgery L shoulder Status post cataract extraction and insertion of intraocular lens of left eye (12/30/18) toe surgery torn tendon 2nd toe R foot Family History Grandfather Diabetes Mother , Suicide Mental disorder Father No problems noted. Social History Smoking/Tobacco Use Status: Never Smoking risk assessment performed?: Yes Alcohol Intake: former Drug use: Daily Substance use type: marijuana Details: past hx IV drug use Caregiver/Support person: No Communication Needs: None Pets and animals: No Current gender identity: male What type of physical activity do you participate in: none Seatbelt use: always Water heater temp set <120 deg: Yes Working smoke detector in home: Yes Fire extinguisher in home: Yes Carbon monox detector in home: Yes Firearms in home: Yes Firearms unloaded and locked: Yes Do you feel safe at home: Yes Do you feel safe in your relationship?: Yes Exam Narrative Exam Narrative: Constitutional: well and [id number], pleasant, conversing normally HENT: head atraumatic/normocephalic/normal inspection, mucous membranes moist Eyes: conjunctiva normal, sclera normal, pupils 3mm b/l Neck: no stridor, normal ROM, trachea midline Chest: normal inspection Resp: normal work of breathing, speaking in full sentences Cardio: normal rate, normal rhythm Back: normal inspection, no rash Skin: warm, dry, normal color, no rash Neuro: alert, not altered, grossly non-focal, normal tone, motor and sensation RUE intact Ext: no edema, right upper arm TTP diffusely, no TTP of the right shoulder, clavicle, or elbow, ROM right shoulder limited 2/2 pain in right upper arm, no overlying skin changes of the right arm or shoulder, radial pulses intact and symmetric, normal exam of the left arm Psych: normal mood, normal affect, normal behavior Course Vital Signs Vital signs: Vital Signs Temperature 36.1 C L 11/22/20 09:31 Pulse 114 H 11/22/20 09:31 Respiratory Rate 20 11/22/20 09:31 Blood Pressure 146/101 H 11/22/20 09:31 Pulse Oximetry 96 11/22/20 09:31 Temperature 36.1 C L 11/22/20 09:31 Temperature Source Skin 11/22/20 09:31 Pulse 114 H 11/22/20 09:31 Respiratory Rate 20 11/22/20 09:31 Blood Pressure 146/101 H 11/22/20 09:31 Blood Pressure Position Sitting 11/22/20 09:31 Pulse Oximetry 96 11/22/20 09:31 Oxygen Delivery Method Room Air 11/22/20 09:31 Oxygen Flow Rate 0 11/22/20 09:31 Pain Level 10 11/22/20 09:31 Comment 11/22/20 09:31 Lab/Test Results Lab/Test Results: Laboratory Tests Range/Units 11/22/20 11/22/20 11/22/20 11:25 11:25 11:25 WBC (4.4-10.8) 10^3/uL 11.44 H RBC (4.36-5.78) 10^6/uL 5.48 Hgb (13.5-17.5) g/dL 17.1 Hct (40.0-50.0) % 49.5 MCV (80-95) fL 90.3 MCH (27.0-33.0) pg 31.2 MCHC (32.0-36.0) % 34.5 RDW (11.8-14.1) % 11.8 Plt Count (130-400) 10^3/uL 149 MPV (8.0-11.0) fL 10.4 Immature Gran % 1.6 Neutrophils % 84.2 Lymphocytes % 4.5 Monocytes % 9.3 Eosinophils % 0.1 Basophils % 0.3 Nucleated RBC % % 0 Absolute Neutrophils (1.2-6.7) 10^3/uL 9.63 H Absolute Lymphocytes (1.2-3.4) 10^3/uL 0.51 L Absolute Monocytes (0.1-0.8) 10^3/uL 1.06 H Absolute Eosinophils (0.0-0.7) 10^3/uL 0.01 Absolute Basophils (0.0-0.2) 10^3/uL 0.03 ESR (0-20) mm//hr Sodium (136-145) mmol/L 138 Potassium (3.5-5.1) mmol/L 4.3 Chloride (98-107) mmol/L 103 Carbon Dioxide (21.0-32.0) mmol/L 27.4 Anion Gap (3-11) mmol/L 7.6 BUN (7-18) mg/dL 19 H Creatinine (0.70-1.30) mg/dL 0.9 Estimated GFR/1.73 m2 (mL/min/1.73m2) >= 60.00 Glucose (74-106) mg/dL 110 H Calcium (8.5-10.1) mg/dL 8.5 Total Bilirubin (0.2-1.0) mg/dL 0.5 AST (15-37) U/L 81 H ALT (16-63) U/L 290 H Alkaline Phosphatase (46-116) U/L 64 C-Reactive Protein (0.0-0.3) mg/dL 0.19 Total Protein (6.4-8.2) g/dL 6.4 Albumin (3.4-5.0) g/dL 3.0 L Range/Units 11/22/20 11:25 WBC (4.4-10.8) 10^3/uL RBC (4.36-5.78) 10^6/uL Hgb (13.5-17.5) g/dL Hct (40.0-50.0) % MCV (80-95) fL MCH (27.0-33.0) pg MCHC (32.0-36.0) % RDW (11.8-14.1) % Plt Count (130-400) 10^3/uL MPV (8.0-11.0) fL Immature Gran % Neutrophils % Lymphocytes % Monocytes % Eosinophils % Basophils % Nucleated RBC % % Absolute Neutrophils (1.2-6.7) 10^3/uL Absolute Lymphocytes (1.2-3.4) 10^3/uL Absolute Monocytes (0.1-0.8) 10^3/uL Absolute Eosinophils (0.0-0.7) 10^3/uL Absolute Basophils (0.0-0.2) 10^3/uL ESR (0-20) mm//hr 2 Sodium (136-145) mmol/L Potassium (3.5-5.1) mmol/L Chloride (98-107) mmol/L Carbon Dioxide (21.0-32.0) mmol/L Anion Gap (3-11) mmol/L BUN (7-18) mg/dL Creatinine (0.70-1.30) mg/dL Estimated GFR/1.73 m2 (mL/min/1.73m2) Glucose (74-106) mg/dL Calcium (8.5-10.1) mg/dL Total Bilirubin (0.2-1.0) mg/dL AST (15-37) U/L ALT (16-63) U/L Alkaline Phosphatase (46-116) U/L C-Reactive Protein (0.0-0.3) mg/dL Total Protein (6.4-8.2) g/dL Albumin (3.4-5.0) g/dL
[2020-11-22 13:07] VITALS: BP 160/87; PULSE 81; TEMP 36.8; O2SAT 98
== END 2020-11-22 13:31 | disposition home or self-care (01) ==
PROVIDERS: Emergency Provider Student in an Organized Health Care Education/Training Program; PCP Nurse Practitioner Family
DX: M25.511 Pain in right shoulder (principal); Z85.79 Personal history of other malignant neoplasms of lymphoid, hematopoietic and related tissues; Z87.311 Personal history of (healed) other pathological fracture
CPT/HCPCS: 36415; 80053; 85652; 99283; 73030; 85025; 86140

== ENCOUNTER 2020-12-05 15:06 | Observation (INO) | payer MEDICARE, MEDICAID, SELFPAY ==
--- NOTE | 2020-12-05 15:08 | NUR.NOTE ---
Nursing Note: Noel Jeevan, sister,
[2020-12-05 15:18] VITALS: BP 144/86; PULSE 111; RESP 16; TEMP 36.6; O2SAT 94
--- NOTE | 2020-12-05 15:28 | ED.GENADUL_ITS ---
Discharge Plan Disposition Patient Disposition: [facility] IN[facility]IENT Condition: Stable Discharge Details Clinical Impression: Generalized weakness, Acute exacerbation of chronic low back pain, Hx of multiple myeloma Admit Date/Time: 12/05/20 18:05 Admit Provider: Andrei Torres Attending Provider: Andrei Torres Primary Care Provider: Olga Ramos ED Provider: Johana Diaz Discharge Data Discharge Date/Time-TO BE ENTERED AT DEPARTURE: 12/05/20 18:45 Medical Decision Making 65yo M w/ multiple myeloma with recent ceasing of all his treatment due to poor prognosis with plans for hospice presents from home for generalized weakness and pain getting out of bed. Case discussed with Sister Celestina who is in [place] over the phone. She states she is concerned about patient being at home alone. Patient is oriented x3 and able to answer questions appropriately. There appears to be possibly some element of confusion as he appears to have difficulty using his phone. Unclear if this is a mental status concern or a problem with using technology. He appears to be quite lucid at times but when speaking to his sister over the phone had difficulty accessing numbers from his phone. She is stating she is unsure if this is due to confusion. Patient stated multiple times that his main 2 concerns were having an adequately working phone and then starting hospice. He is declining any work-up here including lab work or imaging and is currently declining any medication for pain. Patient appears to have competency and decision-making ability. Case was discussed with care management Judi who discussed with Dr. Angel --home hospice nurse will be evaluating patient this evening at home between 6 and 8 PM. This was discussed with patient at bedside and he is agreeable with this plan and feels comfortable going home. This was also discussed with patient's Sister Noel over the phone and she stated she was quite concerned about patient going home as he may be having difficulty to manage at home alone once the hospice nurse leaves. I agree that patient may be unable to manage at home alone as he seems to be having difficulty using his phone and potentially having difficulty getting out of bed again this evening. This is discussed with Dr. Angel who agrees with plan to admit patient to hospitalist service for generalized weakness while preparing for home hospice. If patient fails home hospice, will consider placement. Patient is agreeable with plan for admission to the hospital this evening. Case d/w Dr. Torres who accepts pt for admission. Medical Records Medical records reviewed: Yes I reviewed the patient's medical records. HPI General Mode of arrival: EMS . Date/Time Provider Initiated Documentation: 12/05/20 15:17 . Limitations to Documentation: physical limitation . Information obtained by: patient and family . HPI Narrative: Patient is a 65-year-old male with a history of multiple myeloma with chronic back and leg pain presents from home for generalized weakness and difficulty getting out of bed last night. Patient was evaluated by Dr. Angel as part of palliative care 3 days ago with plan for home hospice. Patient had been receiving treatment at [facility] for his multiple myeloma but with no improvement in his prognosis, decided to cease all treatment recently. Patient is now agreeable with plan for hospice. Original call per EMS was for shortness of breath per his sister in [place]. Patient was apparently speaking with his sister over the phone and it was reported that she thought he was short of breath and called EMS to bring him to the ER for evaluation patient denies any shortness of breath but states he was dizzy and weak getting out of bed last night and his sister called EMS for evaluation. Patient states he is also concerned about his difficulties with his phone and being able to contact his family members. He states his main concerns are arranging hospice and being able to contact his family with lack of a adequately working phone. I spoke with the sister Celestina over the phone and she states that she was on the phone with patient, his oncologist clinical practice consultant today when patient was having difficulty getting out of bed and the oncologist called EMS for transport. Patient states he was having difficulty getting out of bed due to his back pain. He states he has been on fentanyl patches for his pain. He denies any new injury. Related Data Home Medications Medication Instructions Recorded Confirmed cholecalciferol (vitamin D3) 2,000 unit PO DAILY #90 tab-cap 10/31/17 12/05/20 [Vitamin D3] enalapril maleate 20 mg tablet 20 mg PO DAILY #90 tab-cap 06/21/20 12/05/20 pyridoxine (vitamin B6) 50 mg 50 mg PO DAILY #90 tab-cap 07/02/20 12/05/20 tablet calcium carbonate 200 mg calcium 200 mg PO BID tab 08/05/20 12/05/20 (500 mg) chewable tablet apixaban 5 mg tablet See Rx Instructions PO .COMPLEX 08/26/20 12/05/20 #180 tab clindamycin phosphate 1 % lotion 1 applic TP DAILY PRN #60 ml 09/03/20 12/05/20 docusate sodium 100 mg capsule 100 mg PO BID PRN #60 cap 10/01/20 11/10/20 bisacodyl 5 mg tablet,delayed 5 mg PO DAILY PRN #30 tab 10/22/20 11/10/20 release magnesium citrate 150 - 300 ml PO DAILY PRN #296 ml 10/22/20 11/10/20 polyethylene glycol 3350 17 17 g PO DAILY #850 g 11/03/20 12/05/20 gram/dose oral powder melatonin 3 mg capsule 3 mg PO HS PRN #30 cap 11/04/20 12/05/20 Narcan 1 spray INTRANASAL Q2-3M PRN #2 ea 11/05/20 12/05/20 carisoprodol 350 mg tablet 350 mg PO TID PRN #90 tab 11/18/20 12/05/20 magnesium oxide 128 mg PO DAILY 11/22/20 12/05/20 prochlorperazine maleate 10 mg PO Q6H PRN 11/22/20 12/05/20 [Compazine] fentanyl 100 mcg/hr transdermal 1 patch TRANSDERMAL Q72H #10 ea 12/01/20 12/05/20 patch MDD 100 mcg hydromorphone 4 mg tablet 4 mg PO Q6H PRN #30 tab MDD 4 tabs 12/01/20 12/05/20 zolpidem 10 mg tablet 10 mg PO QHS PRN #30 tab 12/01/20 12/05/20 acyclovir 400 mg PO BID 12/05/20 12/05/20 bisacodyl 10 mg rectal suppository 10 mg AK DAILY PRN #12 ea 12/05/20 lorazepam 1 mg tablet 1 mg PO TID PRN #20 tab 12/05/20 morphine 20 mg/5 mL (4 mg/mL) oral 10 mg PO Q4H PRN #30 ml MDD 60 mg 12/05/20 12/05/20 solution sennosides [senna] 8.6 mg PO BID PRN 12/05/20 Previous Rx's Medication Instructions Recorded cholecalciferol (vitamin D3) 2,000 unit PO DAILY #90 tab-cap 10/31/17 [Vitamin D3] enalapril maleate 20 mg tablet 20 mg PO DAILY #90 tab-cap 06/21/20 pyridoxine (vitamin B6) 50 mg 50 mg PO DAILY #90 tab-cap 07/02/20 tablet apixaban 5 mg tablet See Rx Instructions PO .COMPLEX 08/26/20 #180 tab clindamycin phosphate 1 % lotion 1 applic TP DAILY PRN #60 ml 09/03/20 docusate sodium 100 mg capsule 100 mg PO BID PRN #60 cap 10/01/20 bisacodyl 5 mg tablet,delayed 5 mg PO DAILY PRN #30 tab 10/22/20 release magnesium citrate 150 - 300 ml PO DAILY PRN #296 ml 10/22/20 polyethylene glycol 3350 17 17 g PO DAILY #850 g 11/03/20 gram/dose oral powder melatonin 3 mg capsule 3 mg PO HS PRN #30 cap 11/04/20 Narcan 1 spray INTRANASAL Q2-3M PRN #2 ea 11/05/20 carisoprodol 350 mg tablet 350 mg PO TID PRN #90 tab 11/18/20 fentanyl 100 mcg/hr transdermal 1 patch TRANSDERMAL Q72H #10 ea 12/01/20 patch MDD 100 mcg hydromorphone 4 mg tablet 4 mg PO Q6H PRN #30 tab MDD 4 tabs 12/01/20 zolpidem 10 mg tablet 10 mg PO QHS PRN #30 tab 12/01/20 bisacodyl 10 mg rectal suppository 10 mg [place] DAILY PRN #12 ea 12/05/20 lorazepam 1 mg tablet 1 mg PO TID PRN #20 tab 12/05/20 morphine 20 mg/5 mL (4 mg/mL) oral 10 mg PO Q4H PRN #30 ml MDD 60 mg 12/05/20 solution Allergies Allergy/AdvReac Type Severity Reaction Status Date / Time Sulfa (Sulfonamide Allergy Unknown told rx as Verified 11/22/20 09:40 Antibiotics) an infant General Stated Complaint: GenMedical DAMON: 3 Review of Systems All systems reviewed & are unremarkable except as noted in HPI and below Constitutional Constitutional: Reports as per HPI, Denies chills, Denies fever(s) and Reports weakness Eyes Eyes: Denies blurry vision ENT Ears, Nose, Mouth, and Throat: Denies dizziness, Denies sore throat and Denies throat swelling Cardiovascular Cardiovascular: Denies chest pain and Denies dyspnea Respiratory Respiratory: Denies cough and Denies dyspnea Gastrointestinal Gastrointestinal: Denies abdominal pain, Denies diarrhea and Denies vomiting Genitourinary Genitourinary: Denies hematuria and Denies dysuria Musculoskeletal Musculoskeletal: Denies back pain and Denies numbness Integumentary/Breasts Skin/Breast: Denies lesions and Denies rash Neurologic Neurologic: Denies dizziness, Denies localized weakness, Denies numbness and Reports weakness Allergic/Immunologic Allergic/Immunologic: Denies throat swelling [facility] Medical History Adult BMI > 30 Anxiety about health Cancer related pain 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, 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 Cirrhosis of liver (07/26/15) Due to hep C (s/p tx, see historical problems) & EtOH Followed by [facility] Screening EGD 07/28/15: no evidence of varices MELD: 7 (as of 04/10/2017) Should have influenza vaccination annually & pneumonia vaccination [id number] Depression (08/06/15) Sertraline in the past Encounter for hospice care discussion Essential hypertension 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 --> tx as DVT w/ indefinite anticoagulation due to cancer Hepatic encephalopathy (07/26/15) Hepatitis C (05/12/15) Genotype 2, s/p tx [facility] with SVR History of alcohol abuse 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 Hospice care patient to be admitted 12/05/20 Hypomagnesemia (03/20/16) Muscle cramps Insomnia Sleep Clinic [facility] Lives alone Multiple myeloma not having achieved remission (09/13/17) 01/29/20 F/U with Dr Younger,[facility] Hematology 11/17/20 bone disease progression,extensive. 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 Obstructive sleep apnea syndrome, mild (07/26/17) unable to tolerate C Pap Ambien agreement through sleep clinic Other chronic pain (08/06/15) Multifactorial, attributed to chronic Hep C, h/o chikungunya infxn, & OA Palliative care patient Portal hypertension (01/20/16) EGD 07/2015 with recommendation to repeat in 2-3 years (07/2018) per [facility] Renal cyst, left (06/01/15) abd US 05/31/15 Vitamin D deficiency (03/07/16) Surgical History Colectomy (08/20/05) fistula repair-pt unsure of exact date Colonoscopy - MAC (06/04/15) LIZETTE elbow surgery reattached tendon R knee surgery osteochondritis desicans L knee 1974 meniscus surgery L 1997 ORIF and cementing pathologic proximal humerus fracture (09/05/17) [facility] Dr. Mathis shoulder surgery L shoulder Status post cataract extraction and insertion of intraocular lens of left eye (12/30/18) toe surgery torn tendon 2nd toe R foot Family History Grandfather Diabetes Mother , Suicide Mental disorder Father Multiple myeloma Advanced age Social History Smoking/Tobacco Use Status: Never Smoking risk assessment performed?: Yes Alcohol Intake: former Drug use: Daily Substance use type: marijuana Details: past hx IV drug use Caregiver/Support person: No Household members: none Housing: apartment Number of Children: 0 Communication Needs: None Education Level: college Do you need help understanding health information?: Often 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 Pets and animals: No Current gender identity: male What is your relationship status?: never How often do you talk on the phone with friends or family?: once per week How often do you get together with friends or relatives?: never Panel score (0-1 are the most socially isolated patients): 0 What type of physical activity do you participate in: none and sedentary lifestyle Seatbelt use: always Water heater temp set <120 deg: Yes Working smoke detector in home: Yes Fire extinguisher in home: Yes Carbon monox detector in home: Yes Firearms in home: Yes Firearms unloaded and locked: Yes Do you feel safe at home: Yes Do you feel safe in your relationship?: Yes Additional Social history: Lives alone. No children, no siblings. Father reportedly still alive, age 95, living in [facility], with MM. Relies on MONICA Bran as his support person. Has poor memory lately. Gets confused. Hard for him to follow directions on medications, etc. Has a labile personality. Exam Const General: cooperative, healthy appearing and no acute distress HENAK Head: normal to inspection Face and sinus: normal facial exam Eyes General: appearance normal, both eyes and all related structures Pupils: PERRL EOM: EOM intact bilaterally Neck Neck: normal visual inspection and No submandibular swelling Lymphatic: no lymphadenopathy noted Chest Chest: normal inspection of the chest and no tenderness Resp Effort & Inspection: normal respiratory effort and able to speak in complete sentences Auscultation: clear to auscultation bilaterally Cardio Rate: regular rate Rhythm: regular rhythm GI Inspection: normal to inspection Palpation: soft, not firm, not rigid and nontender Auscultation: normal bowel sounds Male General Exam: Yes normal external exam Back/Spine/Pelvis Thoracic/Lumbar Spine: thoracic and lumbar spine normal to inspection Pelvis: no pain with anterior-posterior compression Skin General skin exam: no rashes or lesions noted Neuro General: patient alert, patient awake and patient oriented x3 Cognition: normal cognition Speech: speech normal Motor: muscle tone normal throughout Sensory Exam: no sensory deficits noted Extrem General: normal to inspection, full ROM, capillary refill normal, no calf tenderness bilaterally and no edema Psych Appearance: grossly normal Mental Status: mental status grossly normal Speech and Movement: speech and movement normal Affect: normal affect Course Vital Signs Vital signs: Vital Signs Temperature 97.9 F 12/05/20 15:18 Pulse 111 H 12/05/20 15:18 Respiratory Rate 16 12/05/20 15:18 Blood Pressure 144/86 H 12/05/20 15:18 Pulse Oximetry 94 12/05/20 15:18 Temperature 97.9 F 12/05/20 15:18 Temperature Source Skin 12/05/20 15:18 Pulse 111 H 12/05/20 15:18 Respiratory Rate 16 12/05/20 15:18 Blood Pressure 144/86 H 12/05/20 15:18 Blood Pressure Position Supine 12/05/20 15:18 Pulse Oximetry 94 12/05/20 15:18 Oxygen Delivery Method Room Air 12/05/20 15:18 Oxygen Flow Rate 0 12/05/20 15:18
--- NOTE | 2020-12-05 17:06 | NUR.NOTE ---
Reviewed medication list with pt. States he was taken off all bowel meds except for miralax. has run out of morphine, is using fentanyl patches until he can refill the morphine. Has fentanyl patch to back that he placed himself last night.
--- NOTE | 2020-12-05 17:36 | NUR.NOTE ---
Pt provided with hot meal. Attempted to sit pt up to eat. Has his phone in hand, states he needs to make phone calls and contact people that's more important than food right now. Dr Torres in to [place] pt.
--- NOTE | 2020-12-05 17:46 | W.PM.HP.N ---
Date of service: 12/05/20 Time of Service: 17:46 Assessment and Plan Assessment and plan (1) Generalized weakness: Status: Acute Assessment and plan: Weakness, worsening cancer pain, and inability to manage at home. Will continue same pain regimen for now (Fentanyl 100 plus prn Dilaudid 4; note again question about timing of patch. If cannot resolve, or if appears to be having worsening pain would simply start new patch). Otherwise will continue usual meds as is. I cannot locate a discussion about advanced directives but will attempt to clarify. History of Present Illness History of Present Illness Chief Complaint: weakness Narrative: 65 male with MM, has failed directed therapy and has recently decided to forego further treatment. Met with Palliative care 3 days HEM INSPECTOR with plan to aim to start hospice. Has been having difficulty with pain control and was started on Fentanyl 100 3 days HEM INSPECTOR. Was on phone today with sister in [place] and she called EMS because she thought he was not managing. In ER patient declined any work up, does note that he continues having pain with activity (controlled at rest) and seems agreeable to the idea of entering hospice. After consultation with sister, and given that patient lives alone, it was felt that overnight admission was the safest option. ER did discuss with Dr. Angel and she will be following up in AM. 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, 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 Cirrhosis of liver (07/26/15) Due to hep C (s/p tx, see historical problems) & EtOH Followed by [facility] Screening EGD 07/28/15: no evidence of varices MELD: 7 (as of 04/10/2017) Should have influenza vaccination annually & pneumonia vaccination [id number] Depression (08/06/15) Sertraline in the past Encounter for hospice care discussion Essential hypertension 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 --> tx as DVT w/ indefinite anticoagulation due to cancer Hepatic encephalopathy (07/26/15) Hepatitis C (05/12/15) Genotype 2, s/p tx [facility] with SVR History of alcohol abuse 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 Hospice care patient to be admitted 12/05/20 Hypomagnesemia (03/20/16) Muscle cramps Insomnia Sleep Clinic [facility] Lives alone Multiple myeloma not having achieved remission (09/13/17) 01/29/20 F/U with Dr Younger,[facility] Hematology 11/17/20 bone disease progression,extensive. 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 transplant Obstructive sleep apnea syndrome, mild (07/26/17) unable to tolerate C Pap Ambien agreement through sleep clinic Other chronic pain (08/06/15) Multifactorial, attributed to chronic Hep C, h/o chikungunya infxn, & OA Palliative care patient Portal hypertension (01/20/16) EGD 07/2015 with recommendation to repeat in 2-3 years (07/2018) per [facility] Renal cyst, left (06/01/15) abd US 05/31/15 Vitamin D deficiency (03/07/16) Surgical History Colectomy (08/20/05) fistula repair-pt unsure of exact date Colonoscopy - MAC (06/04/15) LIZETTE elbow surgery reattached tendon R knee surgery osteochondritis desicans L knee 1974 meniscus surgery L 1997 ORIF and cementing pathologic proximal humerus fracture (09/05/17) [facility] Dr. Mathis shoulder surgery L shoulder Status post cataract extraction and insertion of intraocular lens of left eye (12/30/18) toe surgery torn tendon 2nd toe R foot Family History Grandfather Diabetes Mother , Suicide Mental disorder Father Multiple myeloma Advanced age Social History Smoking/Tobacco Use Status: Never Smoking risk assessment performed?: Yes Alcohol Intake: former Drug use: Daily Substance use type: marijuana Details: past hx IV drug use Caregiver/Support person: No Household members: none Housing: apartment Number of Children: 0 Communication Needs: None Education Level: college Do you need help understanding health information?: Often 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 Pets and animals: No Current gender identity: male What is your relationship status?: never How often do you talk on the phone with friends or family?: once per week How often do you get together with friends or relatives?: never Panel score (0-1 are the most socially isolated patients): 0 What type of physical activity do you participate in: none and sedentary lifestyle Seatbelt use: always Water heater temp set <120 deg: Yes Working smoke detector in home: Yes Fire extinguisher in home: Yes Carbon monox detector in home: Yes Firearms in home: Yes Firearms unloaded and locked: Yes Do you feel safe at home: Yes Do you feel safe in your relationship?: Yes Additional Social history: Lives alone. No children, no siblings. Father reportedly still alive, age 95, living in [facility], with MM. Relies on MONICA Bran as his support person. Has poor memory lately. Gets confused. Hard for him to follow directions on medications, etc. Has a labile personality. Meds Allergies and Home Medications Allergies Allergy/AdvReac Type Severity Reaction Status Date / Time Sulfa (Sulfonamide Allergy Unknown told rx as Verified 11/22/20 09:40 Antibiotics) an Home Medications Medication Instructions Recorded Confirmed Type cholecalciferol (vitamin D3) 2,000 unit PO DAILY #90 tab-cap 10/31/17 12/05/20 Rx [Vitamin D3] enalapril maleate 20 mg tablet 20 mg PO DAILY #90 tab-cap 06/21/20 12/05/20 Rx pyridoxine (vitamin B6) 50 mg 50 mg PO DAILY #90 tab-cap 07/02/20 12/05/20 Rx tablet calcium carbonate 200 mg calcium 200 mg PO BID tab 08/05/20 12/05/20 History (500 mg) chewable tablet apixaban 5 mg tablet See Rx Instructions PO .COMPLEX 08/26/20 12/05/20 Rx #180 tab clindamycin phosphate 1 % lotion 1 applic TP DAILY PRN #60 ml 09/03/20 12/05/20 Rx docusate sodium 100 mg capsule 100 mg PO BID PRN #60 cap 10/01/20 11/10/20 Rx bisacodyl 5 mg tablet,delayed 5 mg PO DAILY PRN #30 tab 10/22/20 11/10/20 Rx release magnesium citrate 150 - 300 ml PO DAILY PRN #296 ml 10/22/20 11/10/20 Rx polyethylene glycol 3350 17 17 g PO DAILY #850 g 11/03/20 12/05/20 Rx gram/dose oral powder melatonin 3 mg capsule 3 mg PO HS PRN #30 cap 11/04/20 12/05/20 Rx Narcan 1 spray INTRANASAL Q2-3M PRN #2 ea 11/05/20 12/05/20 Rx carisoprodol 350 mg tablet 350 mg PO TID PRN #90 tab 11/18/20 12/05/20 Rx magnesium oxide 128 mg PO DAILY 11/22/20 12/05/20 History prochlorperazine maleate 10 mg PO Q6H PRN 11/22/20 12/05/20 History [Compazine] fentanyl 100 mcg/hr transdermal 1 patch TRANSDERMAL Q72H #10 ea 12/01/20 12/05/20 Rx patch MDD 100 mcg hydromorphone 4 mg tablet 4 mg PO Q6H PRN #30 tab MDD 4 tabs 12/01/20 12/05/20 Rx zolpidem 10 mg tablet 10 mg PO QHS PRN #30 tab 12/01/20 12/05/20 Rx acyclovir 400 mg PO BID 12/05/20 12/05/20 History bisacodyl 10 mg rectal suppository 10 mg [place] DAILY PRN #12 ea 12/05/20 Rx lorazepam 1 mg tablet 1 mg PO TID PRN #20 tab 12/05/20 Rx morphine 20 mg/5 mL (4 mg/mL) oral 10 mg PO Q4H PRN #30 ml MDD 60 mg 12/05/20 12/05/20 Rx solution sennosides [senna] 8.6 mg PO BID PRN 12/05/20 History Exam Narrative Exam Narrative: 144/86, 111, 36.6, 16, 94% RA. HEENT atraumatic; neck supple; lungs clear; heart RRR, abdomen soft and NT; extremities 1+ pedal edema; neuro able to hold a more or less coherent conversation but at times seems to wander off to tangents; moves all 4s equally; back no bruising or redness; 100 mcg Fentanyl patch right lower back (patient states he placed this yesterday, note that Dr Angel's note references 3 days ago). Results Last Vital Signs Temp 36.6 C 12/05/20 15:18 Pulse 111 H 12/05/20 15:18 Resp 16 12/05/20 15:18 BP 144/86 H 12/05/20 15:18 Pulse Ox 94 12/05/20 15:18 COVID-19 Screening Have you, or household traveled for leisure in last 14 days?: No Had IN PERSON contact w/suspected or confirmed C-19 person: No
[2020-12-05 18:14] LABS: Source Nasal/Nares
--- NOTE | 2020-12-05 18:26 | NUR.NOTE ---
Spoke with pt friend Andreina Vallejo with his permission. Pt wanted her to have his fathers phone number to explain to him what is going on. Spoke with her about plan for pt. Aware plan is for admission. She notes pt has behavior has been declining x 2-3 weeks, ? if d/t medication. andreina Vallejo [phone]
[2020-12-05 18:38] VITALS: BP 118/87; PULSE 115; RESP 18; TEMP 36.6; O2SAT 95
[2020-12-05 18:50] VITALS: BP 146/99; PULSE 114; RESP 20; TEMP 36.4; O2SAT 96
[2020-12-05 20:16] LABS: COVID-19 PCR Negative (Negative)
[2020-12-05] MEDS: LORazepam 1 MG TAB PO (20:18)
[2020-12-05] MEDS: Acyclovir 400 MG TAB PO (20:19)
[2020-12-05] MEDS: Apixaban 5 MG TAB PO (20:19)
[2020-12-05 23:30] VITALS: BP 132/82; PULSE 124; RESP 16; TEMP 37; O2SAT 94
[2020-12-06] MEDS: HYDROmorphone 4 MG TAB PO (03:00)
[2020-12-06] MEDS: Melatonin 3 MG TAB PO ×2 (03:12→22:29)
[2020-12-06 03:52] VITALS: BP 146/97; PULSE 108; RESP 20; TEMP 36.3; O2SAT 96
[2020-12-06 07:27] VITALS: BP 148/90; PULSE 108; RESP 19; TEMP 36.6; O2SAT 93
[2020-12-06] MEDS: Acyclovir 400 MG TAB PO ×2 (08:18→20:06)
[2020-12-06] MEDS: LORazepam 1 MG TAB PO (08:18)
[2020-12-06] MEDS: Magnesium Oxide 400 MG TAB 200 MG PO (08:18)
[2020-12-06] MEDS: Enalapril 5 MG TAB 20 MG PO (08:19)
[2020-12-06] MEDS: Apixaban 5 MG TAB PO ×2 (08:19→20:06)
--- NOTE | 2020-12-06 13:04 | W.PM.PROGNOT ---
Date of Service Date of service: 12/06/20 Time of Service: 13:04 Assessment and Plan Assessment and plan (1) Generalized weakness: Start date: 12/06/20 Start time: 13:35 Status: Acute Assessment and plan: Patient states that his family called EMS they misunderstood him, he is going off on tangents, he is forgetful. Per report from night hospitalist he was asking for hospice. Hospice to meet him on Sunday, however family from [place] of state felt that he was not doing well on his own and therefore called EMS and brought him in. He did agree to DNR/DNI He is highly anxious dealing with being in the hospital and feeling like he has been abandoned. Ativan is not working Will given IM valium 5 mg with PO valium as needed and klonopin scheduled He also states he needs sleep Schedule ambien Palliative consult placed. He wants to go on hospice (2) Hx of multiple myeloma: Start date: 12/06/20 Start time: 13:57 Status: Chronic Assessment and plan: End stage. Failing therapy He is going on hospice. (3) Encounter for hospice care discussion: Start date: 12/06/20 Start time: 13:58 Status: Acute Assessment and plan: Palliative will be seeing patient anitraight. above case discussed with Dr. Lund Subjective Subjective Patient reports: other Interval history since last seen: Patient is highly anxious. Sitting up in chair. He can not focus on anyone question, he also appears to be forgetful and overwhelmed. I was able to discuss code status he is agreeable to DNR/DNI, he was in tears as he was wanting to get a hold of his sister and father. His phone will run out of mins soon and he is upset about that. He is upset that he is here, he feels he has been abandoned by family. He has no complaints of CP, SOB, n/v/d Exam Narrative Exam Narrative: . HEENT atraumatic; neck supple; lungs clear; heart RRR, abdomen soft and NT; extremities 1+ pedal edema; neuro able to hold a more or less coherent conversation but at times seems to wander off to tangents; he is very anxious and emotional. moves all 4s equally; back no bruising or redness; 100 mcg Fentanyl patch right lower back Objective Last Vital Signs Temp 36.6 C 12/06/20 07:27 Pulse 108 H 12/06/20 07:27 Resp 19 12/06/20 07:27 BP 148/90 H 12/06/20 07:27 Pulse Ox 93 12/06/20 07:27 Laboratory Results - last 24 hr 12/05/20 18:00 COVID-19 Source Nasal/nares SARS-CoV-2 (PCR) Negative
[2020-12-06] MEDS: diazePAM 10 MG/2 ML SYR 5 MG IM (13:21)
[2020-12-06] MEDS: clonazePAM 1 MG TAB PO ×2 (13:21→20:06)
--- NOTE | 2020-12-06 14:20 | CHAPLAIN ---
Norm was tipped back in his recliner with his feet propped up. He said he was feeling anxious because he doesn't know what the plan is for him. He spoke with JACOBO Nunes and CM at [facility], who told him to relax and spend the day here. We were able to complete his new HIPPA form so the right people can request information about him. Jessica Camacho CM, explained to Norm that Dr. Burt will be visiting him this afternoon to talk about what hospice at home would look like. I will continue to visit.
[2020-12-06 16:05] VITALS: BP 142/84; PULSE 108; RESP 20; TEMP 37.1; O2SAT 97
--- NOTE | 2020-12-06 17:48 | W.PALLCONSUL ---
Date of service: 12/06/20 Time of Service: 17:48 History of Present Illness History of Present Illness Chief Complaint: end stage Multiple Myeloma Narrative: Norm is a 65-year-old old man who was living alone. He has end-stage multiple myeloma and Dr. Cotter did not feel that there were more treatments available to him which would be helpful. He had met with Dr. Thomas on Sunday by telehealth. She felt strongly that hospice would be the next step for Norm and offer him the most comfort and the ability to stay home which is what he wanted. His sister felt that he was unable to care for himself and he ended up in the ER and admitted for care. Speech is very wandering and at times difficult to follow. He says nobody is telling him anything. His sister is turned off her phone answering it. His father cannot communicate via phone. He is happy that his friend that he met at an [employer] in 1972 has come up from [place] to help him. What he wants to do mostly is to go home. He knows he is dying but he is also afraid of this. In past conversations with healthcare workers he is a DNR/DNI but he did not have a COLST form. Staff states that he is extremely anxious and has required different meds to help reduce his anxiety. He states that he was in a lot of pain. This was documented in Dr. Thomas's note. He was prescribed a fentanyl patch 100 mcg. He states that this has come off and that he cannot find it. He was very clear that this was on his back buttocks. Notes from nursing states that it was on his right hip. His nurse and I have looked all over his body and could not find it. Nursing went through the wash and could not locate it. It was not in his bedding. He states that if he does not move he does not have pain. He does use crutches which helps him when he walks around. Generally he can get up on his own from the chair to the toilet. Assessment and Plan Assessment and plan (1) Generalized weakness: Status: Acute (2) Acute exacerbation of chronic low back pain: Status: Acute (3) Hx of multiple myeloma: Status: Chronic (4) Anxiety about health: Status: Acute (5) Multiple myeloma not having achieved remission: Status: Chronic (6) Cirrhosis of liver: Status: Chronic Qualifiers: Hepatic cirrhosis type: unspecified hepatic cirrhosis Ascites presence: unspecified Qualified Code(s): K74.60 - Unspecified cirrhosis of liver (7) Hepatitis C: Status: Resolved (8) Depression: Status: Inactive (9) Palliative care patient: Status: Acute Assessment and plan: Norm is normally a patient of Latia Parsons NP. He is in hopes of seeing her over the next few days. He has also seen Dr. Thomas during Latia's absence. His anxiety is very high. This is coupled with a sense of dread as to what is coming next as well as the feeling of abandonment by his family. I would recommend that he have a visit with our business analytics director Jennie. I think that he would very much benefit from her quiet consult. I am going to start him on Seroquel to see if he can have more organized thoughts. We will start at 25 mg 3 times daily. First dose now. We have searched for his fentanyl patch. We have gone over his body is well as bedding and wash. We will apply a new fentanyl patch 100 mcg now[address] I read Dr[address] Thomas's note and it sounded like he was in a lot of pain at the time she saw him. He did not seem to be in much pain today when he was sitting. As he did say he does not have pain if he does not move. I do not see how he was going to be able to be at home unless he has a caregiver. At this point his friend from [place] will be there for a few days but not for the time he would require. Placement is the main issue needs to be pursued He did complete a COLST form. Due to his anxiety I only did page 1. As he has told others he is a DO NOT RESUSCITATE. Even with this decision was hard for him. He was very concerned that his 95-year-old father who sounds like he has some memory problems would be mad at him for making the decision to be a DNR. We could not reach his father by phone. Per patient his father was not answering his phone calls .Thank you very much for this consult Dr. Thomas or Latia will be back to see him Review of Systems Narrative: Very anxious man who admits that he is very anxious. Pain when he has movement but otherwise he is feeling okay. He is distraught that he feels that his family has deserted him. He is very happy that his friend from [place] is meeting with Manju Bran to devise a plan as to how he can get home. He mostly just wants to go home and be on hospice. 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, 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 Cirrhosis of liver (07/26/15) Due to hep C (s/p tx, see historical problems) & EtOH Followed by [facility] Screening EGD 07/28/15: no evidence of varices MELD: 7 (as of 04/10/2017) Should have influenza vaccination annually & pneumonia vaccination [id number] Depression (08/06/15) Sertraline in the past Encounter for hospice care discussion Essential hypertension 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 --> tx as DVT w/ indefinite anticoagulation due to cancer Hepatic encephalopathy (07/26/15) Hepatitis C (05/12/15) Genotype 2, s/p tx [facility] with SVR History of alcohol abuse 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 Hospice care patient to be admitted 12/05/20 Hypomagnesemia (03/20/16) Muscle cramps Insomnia Sleep Clinic [facility] C-PAP Lives alone Multiple myeloma not having achieved remission (09/13/17) 01/29/20 F/U with Dr Younger,[facility] Hematology 11/17/20 bone disease progression,extensive. 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 transplant Obstructive sleep apnea syndrome, mild (07/26/17) unable to tolerate C Pap Ambien agreement through sleep clinic Other chronic pain (08/06/15) Multifactorial, attributed to chronic Hep C, h/o chikungunya infxn, & OA Palliative care patient Portal hypertension (01/20/16) EGD 07/2015 with recommendation to repeat in 2-3 years (07/2018) per [facility] Renal cyst, left (06/01/15) abd US 05/31/15 Vitamin D deficiency (03/07/16) Surgical History Colectomy (08/20/05) fistula repair-pt unsure of exact date Colonoscopy - MAC (06/04/15) LIZETTE elbow surgery reattached tendon R knee surgery osteochondritis desicans L knee 1974 meniscus surgery L 1998 ORIF and cementing pathologic proximal humerus fracture (09/05/17) [facility] Dr. Mathis shoulder surgery L shoulder Status post cataract extraction and insertion of intraocular lens of left eye (12/30/18) toe surgery torn tendon 2nd toe R foot Family History Grandfather Diabetes Mother , Suicide Mental disorder Father Multiple myeloma Advanced age Social History Smoking/Tobacco Use Status: Never Smoking risk assessment performed?: Yes Alcohol Intake: former Drug use: Daily Substance use type: marijuana Details: past hx IV drug use Caregiver/Support person: No Household members: none Housing: apartment Number of Children: 0 Communication Needs: None Education Level: college Do you need help understanding health information?: Often 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 Pets and animals: No Current gender identity: male What is your relationship status?: never How often do you talk on the phone with friends or family?: once per week How often do you get together with friends or relatives?: never Panel score (0-1 are the most socially isolated patients): 0 What type of physical activity do you participate in: none and sedentary lifestyle Seatbelt use: always Water heater temp set <120 deg: Yes Working smoke detector in home: Yes Fire extinguisher in home: Yes Carbon monox detector in home: Yes Firearms in home: Yes Firearms unloaded and locked: Yes Do you feel safe at home: Yes Do you feel safe in your relationship?: Yes Additional Social history: Lives alone. No children, no siblings. Father reportedly still alive, age 95, living in [facility], with MM. Relies on MONICA Bran as his support person. Has poor memory lately. Gets confused. Hard for him to follow directions on medications, etc. Has a labile personality. Exam Const Other: Exam(s) a CT:CT abdomen & pelvis CTA EXAM: CT ABDOMEN PELVIS CTA CLINICAL HISTORY: acute on chronic LLQ pain and bloating. TECHNIQUE: Imaging Protocol: Axial computed tomography images with coronal and sagittal reformatted images were created and reviewed CONTRAST MATERIAL: Intravenous: Omnipaque 350 Contrast volume:100 ml Oral: None COMPARISON: CT UPPER ABD W/WO CONTRAST(P) from 06/07/2015 FINDINGS: ABDOMEN: There is no ascites. LIVER: There are no focal hepatic lesions nor dilatation of intrahepatic ducts. GALLBLADDER/BILIARY: No obvious gallbladder pathology. CBD is not dilated. PANCREAS: No evidence of pancreatic mass nor dilatation of the pancreatic duct. SPLEEN: Spleen is not enlarged. There are no intrasplenic lesions. Splenic and portal veins are patent. ADRENALS: There are no significant adrenal masses. KIDNEYS: No cysts evident. No calculi nor hydronephrosis. No solid renal masses. LYMPH NODES: There is no retroperitoneal nor para-aortic adenopathy. No obvious mesenteric masses. ABDOMINAL WALL/GI: No evidence of significant anterior abdominal wall hernia. No bowel obstruction. PELVIS: LYMPH NODES: There is no intrapelvic nor inguinal adenopathy. GI: No evidence of appendicitis.No evidence of sigmoid diverticulitis. URINARY BLADDER: No calculi nor masses evident REPRODUCTIVE: OSSEOUS: No significant osseous lesions. Shea is very stressed, he has wandering speech, he perseverates over his abandonment, he is cooperative. Resp Effort & Inspection: able to speak in complete sentences Auscultation: diminished lung sounds Cardio Rhythm: regular rhythm Heart Sounds: murmur GI Palpation: soft and no hepatosplenomegaly Auscultation: normal bowel sounds Back/Spine/Pelvis Cervical Spine: loss of normal cervical lordosis and cervical muscular tenderness Thoracic/Lumbar Spine: pain with thoraco-lumbar ROM and lumbar spinal tenderness Results Last Vital Signs Temp 98.8 F 12/06/20 16:05 Pulse 108 H 12/06/20 16:05 Resp 20 12/06/20 16:05 BP 142/84 H 12/06/20 16:05 Pulse Ox 97 12/06/20 16:05 Labs Labs: Laboratory Results - last 24 hr 12/05/20 18:00 COVID-19 Source Nasal/nares SARS-CoV-2 (PCR) Negative
--- NOTE | 2020-12-06 18:03 | PDOC.CMIN ---
- If Service Date Differs Date of service: 12/06/20 Time of Service: 18:03 Care Management Initial Assess REASON FOR HOSPITALIZATION:: Weakness, cancer pain PAST MEDICAL HISTORY/PAST SURGICAL HISTORY:: Medical History. Adult BMI > 30. Anxiety about health. Cancer related pain. Chikungunya (05/13/15). 04/2015 POS IgG, 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. Cirrhosis of liver (07/26/15). Due to hep C (s/p tx, see historical problems) & EtOH. Followed by [facility]. Screening EGD 07/28/15: no evidence of varices. MELD: 7 (as of 04/10/2017). Should have influenza vaccination annually & pneumonia vaccination [id number]. Depression (08/06/15). Sertraline in the past. Encounter for hospice care discussion. Essential hypertension. Greater saphenous vein embolism (~08/26/20). Diffuse & involving femoral vein --> tx as DVT w/ indefinite anticoagulation due to cancer. Hepatic encephalopathy (07/26/15). Hepatitis C (05/12/15). Genotype 2, s/p tx [facility] [place] SVR. History of alcohol abuse. history of dengue fever. History of intravenous drug use in remission. Hospice care patient. to be admitted 12/05/20. Hypomagnesemia (03/20/16). Muscle cramps. Insomnia. Sleep Clinic [facility]. C-PAP. Lives alone. Multiple myeloma not having achieved remission (09/13/17). 01/29/20 F/U with Dr Younger,[facility]. 11/17/20 bone disease progression,extensive. 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 Obstructive sleep apnea syndrome, mild (07/26/17). unable to tolerate C Pap. Ambien agreement through sleep clinic. Other chronic pain (08/06/15). Multifactorial, attributed to chronic Hep C, h/o chikungunya infxn, & OA. Palliative care patient. Portal hypertension (01/20/16). EGD 07/2015 with recommendation to repeat in 2-3 years (07/2018) per [facility]. Renal cyst, left (06/01/15). abd US 05/31/15. Vitamin D deficiency (03/07/16). Surgical History. Colectomy (08/20/05). fistula repair-pt unsure of exact date. Colonoscopy - MAC (06/04/15). LIZETTE. elbow surgery. reattached tendon R. knee surgery. osteochondritis desicans L knee 1973. meniscus surgery L 1997. ORIF and cementing pathologic proximal humerus fracture (09/05/17). [facility] [place]. Mathis. shoulder surgery. L shoulder. Status post cataract extraction and insertion of intraocular lens of left eye (12/30/18). toe surgery. torn tendon 2nd toe R foot PREVIOUS FUNCTIONAL STATUS/SOCIAL/FAMILY SUPPORTS:: Norm lives at the [facility], alone. His father, step mother, and sister live in [place]. He has some close friends in [place], who are supportive. 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 He has support in the community from Manju Bran, MONICA BECKER, and Mynor Voss [facility]. He is indpendent at baseline. CURRENT FUNCTIONAL STATUS:: Norm was sitting up in his chair when CM met with him. He reported that he is unsure of the plan, and he is very overwhelmed and anxious. Per RN, he did receive medication for his anxiety, but he has not had much relief. He stated that Manju Bran knows the plan, which is for him to return home with Hospice support, and asked CM to contact Manju. Manju stated that she is also unsure of the plan. CM called his father, Gerard, who stated that he was not sure if Norm is safe to return home. CM discussed his ability to complete ADL's, and the support that Norm will have at home. Norm's wishes are to return home, therefore the plan will be to work toward that goal. Norm is meeting with Palliative Care this evening, which will help direct the plan of care. CM will continue to follow. ADVANCE DIRECTIVES:: Not on file, Palliative care consult placed. Has patient been provided with info about the portal/API?: Yes Did the patient sign up for the portal?: Yes (previously) CODE STATUS:: DNR/DNI INSURANCE COVERAGE / FINANCIAL ISSUES:: [facility]/ [facility] CURRENT HOME/COMMUNITY SERVICES/EQUIPMENT:: Norm has HH RN, TOOL MAKER APPRENTICE, and support from [facility]. PRIMARY CARE PHYSICIAN:: Olga Ramos POTENTIAL DISCHARGE NEEDS:: Hospice consult, additional support at home, follow up appointments. PATIENT/FAMILY EDUCATION NEEDS:: Review discharge instructions and expectations for Hospice care, discussion of self care needs and goals of care. ANTICIPATED BARRIERS TO DISCHARGE:: None identified at this time. TRANSPORTATION:: Via private vehicle by friends vs RCT PLAN:: Anticipate Norm will return home with a resumption of services once medically cleared. He will likely have hospice support at home, which will be determined by a Palliative Care consult. He will transport via private vehicle by friends vs RCT. He will follow up with his PCP and discharge plan of care. CM will continue to follow.
--- NOTE | 2020-12-06 18:37 | NUR.NOTE ---
Nursing Note: 1814: unable to find fetanyl patch on patient. lower back, upper gluteus, hips, chest, back, and shoulders checked by Dr. Burt and JACOBO Umaña. bed checked, linen basket, trash cans, toilet, and floor all searched. nothing found.
[2020-12-06] MEDS: fentaNYL 100 MCG PATCH TD (19:00)
[2020-12-06] MEDS: QUEtiapine 25 MG TAB PO (22:29)
[2020-12-06] MEDS: Zolpidem 5 MG TAB PO (22:29)
[2020-12-06 23:00] VITALS: BP 137/85; PULSE 104; RESP 18; TEMP 36.6; O2SAT 95
[2020-12-07] MEDS: HYDROmorphone 4 MG TAB PO ×2 (02:32→16:07)
[2020-12-07 07:24] VITALS: BP 115/74; PULSE 107; RESP 19; TEMP 36.7; O2SAT 94
[2020-12-07] MEDS: fentaNYL 100 MCG PATCH TD (07:32)
--- NOTE | 2020-12-07 07:36 | NUR.NOTE ---
Nursing Note: 0720- fetanyl patch falling off of patient during rounds. taken off by Chasidy Martinez RN and shown to Marcela Combs, Clinical coordinator. new one needed to be ordered to place. patch disposed of in white waste bucket and witnessed by Radha Mathew RN.
[2020-12-07] MEDS: Magnesium Oxide 400 MG TAB 200 MG PO (08:30)
[2020-12-07] MEDS: diazePAM 5 MG TAB PO (08:31)
[2020-12-07] MEDS: clonazePAM 1 MG TAB PO (08:31)
[2020-12-07] MEDS: Enalapril 5 MG TAB 20 MG PO (08:31)
[2020-12-07] MEDS: Acyclovir 400 MG TAB PO (08:31)
[2020-12-07] MEDS: Apixaban 5 MG TAB PO (08:31)
--- NOTE | 2020-12-07 08:49 | W.PM.PROGNOT ---
Date of Service Date of service: 12/07/20 Time of Service: 08:49 Assessment and Plan Assessment and plan (1) Generalized weakness: Status: Acute Assessment and plan: continue PO valium as needed and klonopin scheduled Schedule ambien Palliative consult placed. He wants to go on hospice (2) Acute exacerbation of chronic low back pain: Status: Acute Assessment and plan: fentanyl patch (3) Hx of multiple myeloma: Status: Chronic Assessment and plan: End stage. Failing therapy He is going on hospice. (4) Cirrhosis of liver: Status: Chronic Qualifiers: Hepatic cirrhosis type: unspecified hepatic cirrhosis Ascites presence: unspecified Qualified Code(s): K74.60 - Unspecified cirrhosis of liver (5) Hepatitis C: Status: Resolved (6) Depression: Status: Inactive (7) Discharge planning issues: Status: Acute Assessment and plan: case management following discussed with Dr Lund. Exam Resp Effort & Inspection: able to speak in complete sentences Auscultation: diminished lung sounds Cardio Rhythm: regular rhythm Heart Sounds: murmur GI Palpation: soft and no hepatosplenomegaly Auscultation: normal bowel sounds Back/Spine/Pelvis Cervical Spine: loss of normal cervical lordosis and cervical muscular tenderness Thoracic/Lumbar Spine: pain with thoraco-lumbar ROM and lumbar spinal tenderness Objective Last Vital Signs Temp 36.7 C 12/07/20 07:24 Pulse 107 H 12/07/20 07:24 Resp 19 12/07/20 07:24 BP 115/74 12/07/20 07:24 Pulse Ox 94 12/07/20 07:24
--- NOTE | 2020-12-07 11:23 | W.NUTRFU ---
Date of service: 12/07/20 Time of Service: 11:23 Nutritional Follow up NOTE: 65 year old male admitted with weakness with hx of multiple myeloma and starting hospice care today. Following regular meal plan with good intake. Will continue to provide meal preferences. Will follow and support for comfort. Time Spent in Nutritional Counseling and Treatment: 0
--- NOTE | 2020-12-07 11:41 | DSE_ITS ---
Date of service: 12/07/20 Time of Service: 11:42 DS: Diagnosis Discharge Diagnosis (1) Generalized weakness: Status: Acute (2) Acute exacerbation of chronic low back pain: Status: Acute (3) Hx of multiple myeloma: Status: Chronic (4) Cirrhosis of liver: Status: Chronic (5) Hepatitis C: Status: Resolved (6) Depression: Status: Inactive Discharge Plan Disposition Patient Disposition: HOME W/HOME HEALTH SERVICE Condition: Stable Discharge Details Reason For Visit: WEAKNESS, CANCER PAIN Admit Date/Time: 12/05/20 18:05 Admit Provider: Andrei Torres Attending Provider: Andrei Torres Primary Care Provider: Olga Ramos Hospital Course Hospital Course: This is a 65 male with multiple myeloma who has failed directed therapy and has recently decided to forego further treatment. He had an outpatient palliative care consult 3 days prior to arrival with plan to aim to start hospice. He has been having difficulty with pain control and was started on Fentanyl 100 mcg at that time. His sister in [place] called EMS because she thought he was not managing. In ER patient declined any work up, does note that he continues having pain with activity (controlled at rest) and seems agreeable to the idea of entering hospice. This was discussed with the sister, and given that patient lives alone, it was felt that overnight admission was the safest option. He was admitted to hospitalist services for pain management. Overnight pain better managed. he was seen by palliative and plan is to discharge to home with resumption of home health services then transition to hospice care. His lorazepam was discontinued and seems to be responding better to clonazepam and valium and he was started on quetiapine prn. further outpatient medication management per hospice team. discussed with DR Kevon Jacobo and New Rx's Prescriptions: New clonazepam 1 mg Tablet 1 mg PO BID Qty: 10 RF: 0 diazepam [Valium] 5 mg Tablet 5 mg PO TID PRN PRNQty: 10 RF: 0 quetiapine 25 mg Tablet 25 mg PO TID PRN PRN (Reason: Agitation) Qty: 10 RF: 0 Continued docusate sodium [Colace] 100 mg capsule 100 mg PO BID PRN (Reason: constipation) Qty: 60 RF: 0 melatonin 3 mg capsule 3 mg PO HS PRN (Reason: sleep) Qty: 30 RF: 0 bisacodyl [Dulcolax (bisacodyl)] 5 mg tablet,delayed release (DR/EC) 5 mg PO DAILY PRN (Reason: constipation) Qty: 30 RF: 0 magnesium citrate Solution 150 - 300 ml PO DAILY PRN (Reason: constipation) Qty: 296 RF: 0 carisoprodol [Soma] 350 mg tablet 350 mg PO TID PRN (Reason: muscle pain) Qty: 90 RF: 1 cholecalciferol (vitamin D3) [Vitamin D3] 2,000 UNIT tablet 2,000 unit PO DAILY Qty: 90 RF: 3 enalapril maleate 20 mg tablet 20 mg PO DAILY Qty: 90 RF: 3 pyridoxine (vitamin B6) [Vitamin B-6] 50 mg tablet 50 mg PO DAILY Qty: 90 RF: 3 calcium carbonate [Tums] 200 mg calcium (500 mg) tablet,chewable 200 mg PO BID RF: 0 clindamycin phosphate 1 % lotion 1 applic TP DAILY PRN (Reason: recurrent skin infection) Qty: 60 RF: 0 polyethylene glycol 3350 [Miralax] 17 gram/dose powder 17 g PO DAILY Qty: 850 RF: 3 zolpidem 10 mg tablet 10 mg PO QHS PRN (Reason: insomnia) Qty: 30 RF: 0 fentanyl 100 mcg/hr patch 72 hour 1 patch transdermal Q72H MDD 100 mcg Qty: 10 RF: 0 hydromorphone 4 mg tablet 4 mg PO Q6H MDD 4 tabs PRN (Reason: pain) Qty: 30 RF: 0 morphine 20 mg/5 mL (4 mg/mL) solution 10 mg PO Q4H MDD 60 mg PRN (Reason: pain) Qty: 30 RF: 0 bisacodyl [Dulcolax (bisacodyl)] 10 mg suppository 10 mg MA DAILY PRN (Reason: constipation) Qty: 12 RF: 0 sennosides [senna] 8.6 mg Tablet 8.6 mg PO BID PRNRF: 0 acyclovir 400 mg tablet 400 mg PO BID RF: 0 Narcan 4 mg/actuation spray,non-aerosol 1 spray intranasal Q2-3M PRN (Reason: opioid overdose) Qty: 2 RF: 0 magnesium oxide 400 mg (241.3 mg magnesium) tablet 128 mg PO DAILY RF: 0 prochlorperazine maleate [Compazine] 10 mg Tablet 10 mg PO Q6H PRNRF: 0 Changed Eliquis 5 mg tablet 5 mg PO BID Qty: 180 RF: 3 Discontinued lorazepam 1 mg tablet 1 mg PO TID PRN (Reason: anxiety) Qty: 20 RF: 5 Discharge Instructions Instructions: Multiple Myeloma (DC), Acute Low Back Pain (GEN) Additional Instructions: resumption of home health services take all medication as directed Stand Alone Forms: Nursing Discharge Form Referrals: Olga Ramos NP [Primary Care Provider] - 12/13/20 10:30 am Activity:: Activity as Tolerated Equipment/Supplies:: No Equipment Needed Diet:: As Tolerated Discharge Orders Discharge Orders: Discharge Order (Routine); Ordered 12/07/20 Ordered By: Maria Judd DS: Summary Time Spent with Patient providing and/or coordinating discharge services: Less than 30 minutes Status at Discharge Functional status at discharge: independent ambulation Overall status at discharge: patient is not back to baseline Mental Status: mental status grossly normal Speech and Movement: speech and movement normal Mood: anxious mood Affect: anxious affect Exam Const General: cooperative, anxious, disheveled, frail appearing (older than stated age) and ill appearing chronically Nutritional Appearance: obese Orientation: alert, awake and oriented x3 HENMT Head: normal to inspection, normocephalic and atraumatic Mouth: oral mucosae normal Resp Effort & Inspection: normal respiratory effort Cardio Rate: regular rate Rhythm: regular rhythm Back/Spine/Pelvis Back: back tenderness Cervical Spine: normal cervical lordosis Thoracic/Lumbar Spine: thoracic and lumbar spine normal to inspection Neuro General: patient alert, patient awake, patient oriented x3 and no focal motor deficits Extrem General: normal to inspection, full ROM and edema Psych Appearance: disheveled Mental Status: mental status grossly normal Speech and Movement: speech and movement normal Mood: anxious mood Affect: anxious affect Attitude: cooperative Thought Process: perseverating DS: Data Vitals/I&O Vitals and I&O: Vital Signs Temperature 36.7 C 12/07/20 07:24 Temperature Source Tympanic 12/07/20 07:24 Pulse 107 H 12/07/20 07:24 Pulse Rhythm Regular 12/07/20 08:30 Respiratory Rate 19 12/07/20 07:24 Respiratory Effort Non-Labored 12/07/20 08:30 Respiratory Depth Normal 12/07/20 08:30 Respiratory Pattern Normal 12/07/20 08:30 Blood Pressure 115/74 12/07/20 07:24 Blood Pressure Position Supine 12/05/20 15:18 Pulse Oximetry 94 12/07/20 07:24 Oxygen Delivery Method Room Air 12/07/20 07:24 Oxygen Flow Rate 0 12/07/20 07:24 Pain Level 0 12/07/20 07:24 Comment 12/06/20 07:27 Intake & Output 12/06/20 12/06/20 12/07/20 11:59 23:59 11:59 Intake Total 470 / 710 240 / 710 Output Total 500 / 900 400 / 900 450 / 450 Balance -30 / -190 -160 / -190 -450 / -450 Intake: Oral 470 / 710 240 / 710 Output: Urine 500 / 900 400 / 900 450 / 450 Other: Urine Color Yellow Yellow Yellow Urine Appearance Clear Clear Clear Urine Odor Normal Normal None Comment urine mixed with stool pT voided, flushed before urine assesment could be made. 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, 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 Cirrhosis of liver (07/26/15) Due to hep C (s/p tx, see historical problems) & EtOH Followed by [facility] GI Screening EGD 07/28/15: no evidence of varices MELD: 7 (as of 04/10/2017) Should have influenza vaccination annually & pneumonia vaccination T1nohbd Depression (08/06/15) Sertraline in the past Encounter for hospice care discussion Essential hypertension 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 --> tx as DVT w/ indefinite anticoagulation due to cancer Hepatic encephalopathy (07/26/15) Hepatitis C (05/12/15) Genotype 2, s/p tx [facility] with SVR History of alcohol abuse 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 transplant Obstructive sleep apnea syndrome, mild (07/26/17) unable to tolerate C Pap Ambien agreement through sleep clinic Other chronic pain (08/06/15) Multifactorial, attributed to chronic Hep C, h/o chikungunya infxn, & OA Palliative care patient Portal hypertension (01/20/16) EGD 07/2015 with recommendation to repeat in 2-3 years (07/2018) per [facility] GI Renal cyst, left (06/01/15) abd US 05/31/15 Vitamin D deficiency (03/07/16) Surgical History Colectomy (08/20/05) fistula repair-pt unsure of exact date Colonoscopy - MAC (06/04/15) LIZETTE elbow surgery reattached tendon R knee surgery osteochondritis desicans L knee 1974 meniscus surgery L 1998 ORIF and cementing pathologic proximal humerus fracture (09/05/17) [facility] Dr. Mathis shoulder surgery L shoulder Status post cataract extraction and insertion of intraocular lens of left eye (12/30/18) toe surgery torn tendon 2nd toe R foot Family History Grandfather Diabetes Mother , Suicide Mental disorder Father Multiple myeloma Advanced age Social History Smoking/Tobacco Use Status: Never Smoking risk assessment performed?: Yes Alcohol Intake: former Drug use: Daily Substance use type: marijuana Details: past hx IV drug use Caregiver/Support person: No Household members: none Housing: apartment Number of Children: 0 Communication Needs: None Education Level: college Do you need help understanding health information?: Often 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 Pets and animals: No Current gender identity: male What is your relationship status?: never How often do you talk on the phone with friends or family?: once per week How often do you get together with friends or relatives?: never Panel score (0-1 are the most socially isolated patients): 0 What type of physical activity do you participate in: none and sedentary l ifestyle Seatbelt use: always Water heater temp set <120 deg: Yes Working smoke detector in home: Yes Fire extinguisher in home: Yes Carbon monox detector in home: Yes Firearms in home: Yes Firearms unloaded and locked: Yes Do you feel safe at home: Yes Do you feel safe in your relationship?: Yes Additional Social history: Lives alone. No children, no siblings. Father reportedly still alive, age 95, living in [facility], with MM. Relies on MONICA Bran as his support person. Has poor memory lately. Gets confused. Hard for him to follow directions on medications, etc. Has a labile personality.
--- NOTE | 2020-12-07 13:05 | PCPN_ITS ---
Date of service: 12/07/20 Time of Service: 13:05 Assessment and Plan Assessment and plan (1) Generalized weakness: Status: Acute (2) Hx of multiple myeloma: Status: Chronic (3) Mass of spine: Status: Acute (4) Cancer related pain: Status: Acute (5) Acute exacerbation of chronic low back pain: Status: Acute (6) Encounter for hospice care discussion: Status: Acute (7) Right shoulder pain: Status: Acute (8) Hepatitis C: Status: Resolved (9) Palliative care patient: Status: Acute Assessment and plan: Norm is a 65 year old with multiple myeloma with spine lesions who was recently seen by oncology and informed that he did not have any further treatment options. He is interested in going home on hospice. He will be discharged today and admitted to hospice tomorrow. He reports that his pain is well controlled with fentanyl patch 100 mcg/hr, this will be continued on discharge. He has had anxiety, he was started on Klonopin BID and valium PRN and reports improvement in his anxiety. Follow up with hospice tomorrow. His sister, Celestina, is working on getting him moved to [place] on hospice. He would likely benefit from having [facility] at home. Subjective Subjective Interval history since last seen: Norm was seen in his hospital room. He was very calm and pleasant. We discussed being discharged home on hospice, he is clear that this is what he wants. He ultimately wants to be transferred to the hospice in [place] to be near his family, his sister is helping to coordinate this. He reports feeling comfortable. His pain is under control, he is eating and drinking and tolerating his diet. He denies SOB, coughing or wheezing. His friend, Long, is staying with him for a while and helping him get home on hospice. He is discharged home today with his friend, Long, who will help care for him for now. This was discussed with his sister, Celestina, who is looking into hospice in the area in [place]. She will need help coordinating services between here and there. She suggested that he might need to be in a assisted facility/hospice house near them. She is concerned about his ability to call for help at home. I suggested the addition of [facility], his special needs child caregiver will let home health/hospice know that they are interested in [facility] or similar. Exam Narrative Exam Narrative: General: Norm was seen in his hospital room, laying back in his recliner, he was awakened for the visit. He was very calm and pleasant. HEENT: normocephalic, atraumatic, pupils equal and round, mucous membranes moist. Neck: supple. Respiratory: respirations appear even and unlabored. GI: soft, round, nontender on palpation. Extremities: moves all 4 extremities freely. Objective Last Vital Signs Temp 36.7 C 12/07/20 07:24 Pulse 107 H 12/07/20 07:24 Resp 19 12/07/20 07:24 BP 115/74 12/07/20 07:24 Pulse Ox 94 12/07/20 07:24
--- NOTE | 2020-12-07 14:23 | CHAPLAIN ---
When I visited Norm this morning he was concerned that plans for him were not being coordinated and that the right people were not involved and he was hearing back from people as soon as he wanted to. His goal is to go to be discharged home on Hospice and then move [place] where his dad lives, rather than stay in [place]. 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 He has no interest in being in [place]. His friend, Brooks, from [place], is will be here today and staying until . When I spoke with Latia Laughlin NP, from Palliative Care, she said Norm was very calm and pleasant during their meeting and in the end they arraged for Norm to be discharged today, on hospice and his sister is going to help him arrange to move to an apartment in [place] near his parents, which seems like just what he wants. When I tried to talk with him, a couple of time, about hospice and end of life, he was teary for a moment, then changed the topic.
[2020-12-07 15:18] VITALS: BP 128/72; PULSE 111; RESP 19; TEMP 36.3; O2SAT 95
[2020-12-07] MEDS: Fentanyl Patch Removal 1 EACH TD (15:46)
--- NOTE | 2020-12-07 17:22 | PDOC.CMDIS ---
- If Service Date Differs Date of service: 12/07/20 Time of Service: 17:22 LACE Index Scoring Tool - Questions: Length of Stay (in days): 2 Acuity (Admit via E.D.?): Yes Comorbidities: Liver or Renal Disease, Metastatic Solid Tumor E.D. Visits: 5 - Answers: Total Score: 14 Risk of Readmission: High Risk Care Management Discharge Reason for Hospitalization: Weakness, cancer pain Discharge Plan: Norm returned home today with a resumption of HH services. He will have a Hospice consult at home tomorrow, when he will be admitted to their service. His family would like him to relocate to [place], which he is in agreement with. His sister, Celestina and the [facility] for Hospice will continue to work on this plan to transfer him from Hospice in [place] to Hospice in [place]. Norm's friend will drive him home today via private vehicle. He will follow up with Palliative care/Hospice after discharge. CM notified HH of his discharge and resumption orders. He is agreeable to the plan. Patient/Family Education Needs: Review discharge instructions, expectations of Hospice care, discussion of self care needs and goals of care. Services Needed at Discharge: Home Health Care Services (resume HH)
== END 2020-12-07 16:33 | disposition home health service (06) ==
LOC: ER 18:11 → MS 18:46
PROVIDERS: Admitting Provider General Practice; Emergency Provider Physician Assistant; PCP Nurse Practitioner Family; Visit Provider General Practice
DX: G89.3 Neoplasm related pain (acute) (chronic) (principal); R53.1 Weakness; C90.00 Multiple myeloma not having achieved remission; F41.8 Other specified anxiety disorders; F32.9 Major depressive disorder, single episode, unspecified; I10 Essential (primary) hypertension; Z86.718 Personal history of other venous thrombosis and embolism; Z79.01 Long term (current) use of anticoagulants; Z86.19 Personal history of other infectious and parasitic diseases; K70.30 Alcoholic cirrhosis of liver without ascites; F10.11 Alcohol abuse, in remission; G47.33 Obstructive sleep apnea (adult) (pediatric); E55.9 Vitamin D deficiency, unspecified; K76.6 Portal hypertension; Z66 Do not resuscitate; M54.5 Low back pain
CPT/HCPCS: 87635; 99217; 99221; 99226; 99232; 99255; 99285; 99218; 99283; G0378; J3360; J3490

== ENCOUNTER 2020-12-23 12:44 | Inpatient (IN) | payer OTHER, SELFPAY ==
[2020-12-23 14:33] VITALS: BP 147/84; PULSE 100; RESP 18; TEMP 37; O2SAT 97
--- NOTE | 2020-12-23 15:08 | W.PM.HP.N ---
Date of service: 12/23/20 Time of Service: 15:08 Assessment and Plan Assessment and plan (1) Hx of multiple myeloma: Status: Chronic Assessment and plan: No further cancer treatment available. Came on hospice mid-November. No caregiver that tends to his needs regularly. Norm cannot manage his medications. Had hoped to move to [facility] to be near family but they cannot support this. On his own, except for friends and Hospice staff. He tried to make a go of hospice at his home, but he says he knows it's not working. Will be discharged to SNF. Has Medicaid and Medicare. (2) Hospice care patient: Status: Acute Assessment and plan: Likely has months to live. Not actively dying. Will need housing for several months. (3) Generalized weakness: Status: Acute Assessment and plan: Walking with a cane. Doesn't move much at home. Will see what he can do. (4) Lives alone: Status: Chronic Assessment and plan: Not able to care for himself. Will need placement. (5) Cancer related pain: Status: Chronic Assessment and plan: Says it's controlled as long as he doesn't move. Not a realistic plan. Will see what adjustments he needs. Likely will be on symptom management for a few days before transitioning to respite while RN REHAB tries to find placement. (6) Anxiety about health: Status: Acute Assessment and plan: Didn't seem acutely anxious on admission. But has history of severe anxiety in past, making multiple phone calls, etc. Does have both clonazepam and diazepam ordered. Has been on both prior to coming on hospice. (7) Multiple myeloma not having achieved remission: Status: Chronic Assessment and plan: This will likely be the cause of his eventual . (8) Greater saphenous vein embolism: Status: Acute Assessment and plan: Had considered stopping his eliquis, but will leave in place for now unless he starts falling or bleeding abnormally. Does have liver disease, too. Qualifiers: Laterality: right Qualified Code(s): I82.811 - Embolism and thrombosis of superficial veins of right lower extremity History of Present Illness History of Present Illness Chief Complaint: medication confusion, chronic pain, multiple myeloma, hospice symptom manag Narrative: Norm is a 65 yo man who was given a terminal prognosis for his multiple myeloma by his oncologist Dr Rowell; he elected to come on hospice soon after. He was hoping to move down to [place] to be near his father, stepmother and jaziel. However recent conversations with family members make it clear that this will not be possible; his father is in his 90s and has cancer. His stepmother and violetister cannot also take care of Norm. Norm has no siblings or children; his mother 25 years ago or more of suicide. He moved to [place] about 6 years ago to live near his best friend, who soon thereafter. He has tried to piece together a caregiving team at home, but it keeps falling apart. Norm has had great difficulty managing his own medications. He keeps on mixing them up, taking the wrong pills, undoing all the boxes. He has episodes of severe anxiety. He reports his pain is controlled as long as I don't move. He has on a 100 mcg fentanyl patch, takes hydromorphone 4 mg q 6 hrs prn and sometimes morphine concentrate, though he says he doesn't like how it makes him feel. He tells me he has lost about 60 lbs in the last 6 months. He still has a BMI of >40. He does not look at all frail. 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 He has had daily visits from Hospice RNs, and frequent visits from cleaner touch up worker and providers. Given this, a group decision was made to bring him into the hospice to get his pain controlled and develop a schedule of medications. He is being admitted on symptom management status. Review of Systems Constitutional Constitutional: Reports fatigue, Reports lethargy, Reports poor appetite, Reports weakness and Reports weight loss Eyes Eyes: Reports requires corrective lenses ENT Ears, Nose, Mouth, and Throat: Reports abnormal hearing, Reports dry mouth and Reports disequilibrium Cardiovascular Cardiovascular: Reports lightheadedness, Reports palpitations and Reports dyspnea on exertion Respiratory Respiratory: Reports dyspnea on exertion Gastrointestinal Gastrointestinal: Reports constipation Genitourinary Genitourinary: Reports difficulty urinating Musculoskeletal Musculoskeletal: Reports abnormal gait, Reports atrophy, Denies arthralgias, Reports loss of height and Reports muscle weakness Integumentary/Breasts Skin/Breast: Reports dry skin and Reports pruritus Neurologic Neurologic: Reports abnormal hearing, Reports abnormal gait, Reports behavioral changes, Reports confusion (cannot manage his medications), Reports memory loss, Reports disequilibrium and Reports weakness Psychiatric Psychiatric: Reports abnormal sleep pattern, Reports anxiety, Reports behavioral changes, Reports confusion (cannot manage his medications), Reports difficulty concentrating, Reports hopelessness, Reports anhedonia and Reports memory loss Endocrine Endocrine: Reports fatigue and Reports palpitations [facility] Medical History (Updated 12/23/20 @ 21:06 by Elizabeth Angel MD) Adult BMI > 30 Anxiety about health Cancer related pain 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, 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 Cirrhosis of liver (07/26/15) Due to hep C (s/p tx, see historical problems) & EtOH Followed by [facility] GI Screening EGD 07/28/15: no evidence of varices MELD: 7 (as of 04/10/2017) Should have influenza vaccination annually & pneumonia vaccination [id number] Depression (08/06/15) Sertraline in the past Encounter for hospice care discussion Essential hypertension 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 --> tx as DVT w/ indefinite anticoagulation due to cancer Hepatic encephalopathy (07/26/15) Hepatitis C (05/12/15) Genotype 2, s/p tx [facility] with SVR History of alcohol abuse 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 Hospice care patient admitted 12/05/20 Hypomagnesemia (03/20/16) Muscle cramps Insomnia Sleep Clinic [facility] Lives alone Multiple myeloma not having achieved remission (09/13/17) 01/29/20 F/U with Dr Younger,[facility] Hematology 11/17/20 bone disease progression,extensive. 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 transplant Obstructive sleep apnea syndrome, mild (07/26/17) unable to tolerate C Pap Ambien agreement through sleep clinic Other chronic pain (08/06/15) Multifactorial, attributed to chronic Hep C, h/o chikungunya infxn, & OA Palliative care patient Portal hypertension (01/20/16) EGD 07/2015 with recommendation to repeat in 2-3 years (07/2018) per [facility] Renal cyst, left (06/01/15) abd US 05/31/15 Vitamin D deficiency (03/07/16) Surgical History Colectomy (08/20/05) fistula repair-pt unsure of exact date Colonoscopy - MAC (06/04/15) LIZETTE elbow surgery reattached tendon R knee surgery osteochondritis desicans L knee 1974 meniscus surgery L 1998 ORIF and cementing pathologic proximal humerus fracture (09/05/17) [facility] Dr. Mathis shoulder surgery L shoulder Status post cataract extraction and insertion of intraocular lens of left eye (12/30/18) toe surgery torn tendon 2nd toe R foot Family History Grandfather Diabetes Mother , Suicide Mental disorder Father Multiple myeloma Advanced age Social History Smoking/Tobacco Use Status: Never Smoking risk assessment performed?: Yes Alcohol Intake: never Drug use: Daily Substance use type: former substance user and marijuana Details: Pt. has a history of illicit/recreational drug use, but states that he has been sober for 20 years. Pt. states that he smokes marijuana daily and has been smoking it for 50 years. 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 Pets and animals: No Current gender identity: male What is your relationship status?: never How often do you talk on the phone with friends or family?: once per week How often do you get together with friends or relatives?: never Panel score (0-1 are the most socially isolated patients): 0 What type of physical activity do you participate in: none and sedentary lifestyle Seatbelt use: always Water heater temp set <120 deg: Yes Working smoke detector in home: Yes Fire extinguisher in home: Yes Carbon monox detector in home: Yes Firearms in home: Yes Firearms unloaded and locked: Yes Do you feel safe at home: Yes Do you feel safe in your relationship?: Yes Additional Social history: Lives alone. No children, no siblings. Father reportedly still alive, age 95, living in [facility], with MM. Relies on MONICA Bran as his support person. Has poor memory lately. Gets confused. Hard for him to follow directions on medications, etc. Has a labile personality. Meds Allergies and Home Medications Allergies Allergy/AdvReac Type Severity Reaction Status Date / Time Sulfa (Sulfonamide Allergy Unknown told rx as Verified 11/22/20 09:40 Antibiotics) an Home Medications Medication Instructions Recorded Confirmed Type cholecalciferol (vitamin D3) 2,000 unit PO DAILY #90 tab-cap 10/31/17 12/05/20 Rx [Vitamin D3] pyridoxine (vitamin B6) 50 mg 50 mg PO DAILY #90 tab-cap 07/02/20 12/05/20 Rx tablet calcium carbonate 200 mg calcium 200 mg PO BID tab 08/05/20 12/05/20 History (500 mg) chewable tablet clindamycin phosphate 1 % lotion 1 applic TP DAILY PRN #60 ml 09/03/20 12/05/20 Rx docusate sodium 100 mg capsule 100 mg PO BID PRN #60 cap 10/01/20 11/10/20 Rx bisacodyl 5 mg tablet,delayed 5 mg PO DAILY PRN #30 tab 10/22/20 11/10/20 Rx release magnesium citrate 150 - 300 ml PO DAILY PRN #296 ml 10/22/20 11/10/20 Rx melatonin 3 mg capsule 3 mg PO HS PRN #30 cap 11/04/20 12/05/20 Rx Narcan 1 spray INTRANASAL Q2-3M PRN #2 ea 11/05/20 12/05/20 Rx carisoprodol 350 mg tablet 350 mg PO TID PRN #90 tab 11/18/20 12/05/20 Rx magnesium oxide 128 mg PO DAILY 11/22/20 12/05/20 History prochlorperazine maleate 10 mg PO Q6H PRN 11/22/20 12/05/20 History [Compazine] hydromorphone 4 mg tablet 4 mg PO Q6H PRN #30 tab MDD 4 tabs 12/01/20 12/05/20 Rx zolpidem 10 mg tablet 10 mg PO QHS PRN #30 tab 12/01/20 12/05/20 Rx acyclovir 400 mg PO BID 12/05/20 12/05/20 History bisacodyl 10 mg rectal suppository 10 mg [place] DAILY PRN #12 ea 12/05/20 Rx sennosides [senna] 8.6 mg PO BID PRN 12/05/20 History Eliquis 5 mg PO BID #180 tab 12/07/20 12/05/20 Rx quetiapine 25 mg PO TID PRN PRN #10 tab 12/07/20 Rx clonazepam 1 mg tablet 1 mg PO BID #30 tab 12/09/20 Rx diazepam 5 mg tablet 5 mg PO TID PRN PRN #21 tab 12/09/20 Rx enalapril maleate 20 mg tablet 20 mg PO DAILY #90 tab-cap 12/09/20 Rx polyethylene glycol 3350 17 17 g PO DAILY #1020 g 12/16/20 Rx gram/dose oral powder fentanyl 100 mcg/hr transdermal 1 patch TRANSDERMAL Q72H #5 ea MDD 12/23/20 Rx patch 100 mcg morphine concentrate 5 - 20 mg PO DAILY 12/23/20 12/23/20 History Exam Const General: cooperative, anxious, disheveled and ill appearing chronically Nutritional Appearance: obese Orientation: alert, awake and oriented x3 HENMT Head: normocephalic and atraumatic Ears: hearing grossly normal bilaterally General nose exam: external nose normal Face and sinus: normal facial exam, face symmetric and dry mucous membranes Eyes Conjunctivae: conjunctivae normal Sclera: sclerae normal Neck Neck: no lymphadenopathy and no JVD Resp Effort & Inspection: normal respiratory effort and able to speak in complete sentences Auscultation: clear to auscultation bilaterally and diminished lung sounds Cardio Rate: regular rate Rhythm: regular rhythm GI Inspection: obesity Palpation: soft Auscultation: normal bowel sounds Back/Spine/Pelvis Back: back tenderness Cervical Spine: normal cervical lordosis Thoracic/Lumbar Spine: thoracic and lumbar spine normal to inspection Skin General skin exam: dry skin Neuro General: patient alert, patient awake, patient oriented x3 and no focal motor deficits Cognition: abnormal cognition (not a good historian of recent events; overwhelmed by his illness) Speech: speech normal Gait: gait assisted Method: walking stick Extrem General: no calf tenderness bilaterally and edema Psych Appearance: disheveled Mental Status: mental status grossly normal Speech and Movement: speech and movement normal Mood: anxious mood Affect: anxious affect Attitude: cooperative Thought Process: illogical, impoverished, perseverating and tangential Insight: limited Judgment: limited Results Last Vital Signs Temp 98.6 F 12/23/20 14:33 Pulse 100 H 12/23/20 14:33 Resp 18 12/23/20 14:33 BP 147/84 H 12/23/20 14:33 Pulse Ox 97 12/23/20 14:33 COVID-19 Screening Have you, or household traveled for leisure in last 14 days?: No
[2020-12-23] MEDS: fentaNYL 100 MCG PATCH TD (16:30)
--- NOTE | 2020-12-23 16:42 | NUR.NOTE ---
Nursing Note: At 1630 on 12/23/20, this RN entered pt.'s room and attempted to complete the medication reconciliation (med. rec.) with the pt. RN unable to complete the med. rec. because the pt. is unsure of what medications he has been taking (med/dose/route/time/etc.) and states, That's part of why I'm here right now. They've been messing around with my meds lately and I have no idea what I'm taking anymore. You'll need to call my primary nurse. Charge nurse notified. legal secretary receptionist made a note to call the primary home health/hospice nurse tomorrow (12/24/20) to obtain the pt.'s current medication list, so that the med. rec. can be completed. RN will reassess as necessary.
[2020-12-23 19:38] VITALS: BP 116/74; PULSE 94; RESP 18; TEMP 36.7; O2SAT 98
[2020-12-23] MEDS: clonazePAM 1 MG TAB PO (19:44)
[2020-12-23] MEDS: Docusate Sodium 100 MG CAP PO (19:44)
[2020-12-23] MEDS: Calcium Carbonate *TUMS* 500 MG CHEW 200 MG PO (19:44)
[2020-12-23 21:28] LABS: Source Nasal/Nares
[2020-12-23] MEDS: Senna TAB PO (21:28)
[2020-12-23 23:44] LABS: COVID-19 PCR Negative (Negative)
[2020-12-24] MEDS: Melatonin 3 MG TAB PO ×2 (04:30→21:19)
[2020-12-24 07:33] VITALS: BP 116/78; PULSE 92; RESP 18; TEMP 36.5; O2SAT 95
[2020-12-24] MEDS: Docusate Sodium 100 MG CAP PO ×2 (07:40→19:47)
[2020-12-24] MEDS: clonazePAM 1 MG TAB PO ×2 (07:40→19:47)
[2020-12-24] MEDS: Apixaban 5 MG TAB PO ×2 (07:40→19:47)
[2020-12-24] MEDS: Calcium Carbonate *TUMS* 500 MG CHEW 200 MG PO ×2 (07:40→19:48)
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
--- NOTE | 2020-12-24 10:52 | PHA.REVIEW ---
Pharmacy Admission Review - Admission Clinical Review (Last Updated 12/23/20 @ 21:08 by Elizabeth Angel MD) Generalized weakness (Acute) Hospice care patient (Acute) Anxiety about health (Acute) Greater saphenous vein embolism (Acute ~08/26/20) Sulfa (Sulfonamide Antibiotics) Allergy (Unknown, Verified 11/22/20 09:40) told rx as an Height 5 ft 10 in Weight 129.183 kg Hospice, pain control, mult.myeloma - Comments Comments/Follow Ups: Pain zero, no labs, Keeping him on Eliquis at this time. Will need SNF for end of life care, no further cancer interventions - Anticoagulation Therapeutic Anticoagulation: Reviewed (Hx Saphenous vein embolism) Medications: Apixaban - Opiate Usage Evaluate Pain Scale/Pains Meds: Reviewed (Fentanyl patch, Dilaudid & Morphine orally) Scheduled Bowel Reg ordered if on Opiates?: Yes - BP Control BP Control: Blood Pressure 116/78
--- NOTE | 2020-12-24 14:13 | CHAPLAIN ---
Norm and I remember each other from his previous admission. He does not seem as anxious on this admission. I visited with him last night, shortly after he was admitted and again this afternoon. He said he had people come in to his room, but he hasn't been able to sort out who everyone is because of masks and because he has meant a lot of new people and it's confusing to him. He said he was pleasantly surprised to find he slept well last night and hopes that happens again tonight. When he was last here, Norm's plan was to move to [place] where his dad, step mom and step sister are. At that time he was really complaining about [place] and why he doesn't like it here. The [place] plans have been scraped he said. (According to Dr. Angel's Palliative Care notes, Norm's dad is dealing with cancer and his step mom and step sister can also take care of Norm. Norm moved to [place] to be near a close who friend, who has since .) Norm said he is looking for just a glimmer at of hope at this point, that's all I'd like, just small glimmer. He is terminally and according to Dr. Angel's notes, his life expectation is months. He was admitted from Hospice for symptom management and he as having trouble taking his med correctly. Hospice staff was stopping in daily, but Norm does not have a person who has signed on to be his caregiver. He has relied on [facility] Manju Bran, at [facility], for support, the hospice team, and Mynor from [facility].
--- NOTE | 2020-12-24 20:45 | PGE_ITS ---
Date of Service Date of service: 12/24/20 Time of Service: 12:40 Assessment and Plan Assessment and plan (1) Generalized weakness: Status: Acute Assessment and plan: very sedentary most of the time in his bed PPS of 40% (2) Hospice care patient: Status: Acute Assessment and plan: continues on symptom management will not be able to go home from this hospitalization (3) Hx of multiple myeloma: Status: Chronic Assessment and plan: this is his terminal diagnosis he has remarkably little pain given this (4) Cancer related pain: Status: Chronic Assessment and plan: controlled with fentanyl not requiring any other short acting narcotics (5) Confusion: Status: Acute Assessment and plan: multifactorial likelyl has untreated JEFF, could be due to his cancer, though MM doesn't go to the brain could be due to medications will try to back off on his benzodiazapines and see if he clears at all (6) Discharge planning issues: Status: Acute Assessment and plan: not safe to go home clearly cannot care for himself and he has no caregiver Subjective Subjective Patient reports: no new complaints, tolerating a regular diet (but not eating much, poor appetite) and shortness of breath Interval history since last seen: I met with Norm this am. He was confused, which I think is his baseline. He cannot identify people who come in and out of his room. He told his nurse he couldn't eat his lunch as he was supposed to meet with 2 girls and he thought he should wait. He didn't remember saying this. I left messages for the hospice EMERGENCY DEPARTMENT COORDINATOR about placement for Norm. It is quite clear that he is unable to care for himself and he has no caregiver. He denies being in pain. Yesterday he said he hurt only when he moved but today he was able to sit up, move to the edge of the bed, lie back down, all without obvious discomfort. He has not required any break-through pain meds. He remains on his 100 mcg fentanyl patch for pain due to his multiple myeloma. Exam Narrative Exam Narrative: General: Norm was seen in his hospital room, sitting on the side of his bed for most of the visit. He was confused and pleasant. He had not eaten his lunch. I encourage him to do so, but he said he wasn't hungry. HEENT: normocephalic, atraumatic, pupils equal and round, mucous membranes moist. Neck: supple. No LAD or JVD Respiratory: respirations appear even and unlabored. CTAB. GI: soft, round, nontender on palpation. obese Extremities: moves all 4 extremities, no focal weakness noted psych: confused at baseline. His sense of time and sequence is notably off. He has clear executive dysfunction. He is not safe to live alone. He needs help with medications and with reminders to eat, bathe, etc. Skin: no rashes or lesions. Neuro: he knew he was in the hospital, he wasn't sure of the date. He wasn't sure who I was, though I'd seen him the day before. Objective Last Vital Signs Temp 97.7 F 12/24/20 07:33 Pulse 92 H 12/24/20 07:33 Resp 18 12/24/20 07:33 BP 116/78 12/24/20 07:33 Pulse Ox 95 12/24/20 07:33 Laboratory Results - last 24 hr 12/23/20 15:25 COVID-19 Source Nasal/nares SARS-CoV-2 (PCR) Negative
[2020-12-24] MEDS: Senna TAB PO (21:11)
[2020-12-25 08:05] VITALS: BP 107/73; PULSE 89; RESP 18; TEMP 36.9; O2SAT 95
[2020-12-25] MEDS: Docusate Sodium 100 MG CAP PO ×2 (08:24→19:37)
[2020-12-25] MEDS: Calcium Carbonate *TUMS* 500 MG CHEW 200 MG PO ×2 (08:24→19:37)
[2020-12-25] MEDS: clonazePAM 1 MG TAB PO ×2 (08:24→19:37)
[2020-12-25] MEDS: Apixaban 5 MG TAB PO ×2 (08:25→19:37)
--- NOTE | 2020-12-25 11:50 | PDOC.CMPRO ---
- If Service Date Differs Date of service: 12/25/20 Time of Service: 11:50 Care Management Progress Note S/O: Norm is laying in bed when CM comes to meet with him. He is pleasant and easily engages in conversation. He shares that the plan is for him to go into a SNF when he leaves here and expresses feeling a bit overwhelmed over having to choose a facility, as he is not familiar with any of the facilities in [place]. He states he would like to either remain close to the [facility] or would consider something in [place], as he has a friend who lives there. We talk a little bit about [facility] and [facility]. CM provides him with a brochure on [facility] in [place] and will gather some information on [facility] for him to review. A: Norm is a 65 year old man admitted to [facility] on 12/23/2020 for uncontrolled pain and multiple myeloma. P: Plan remains for Norm to discharge to a SNF, as he is not safe to return home where he lives alone. SAVANNA Cruz, from [facility], is reportedly sending referrals to [facility] SNFs. Details of Norm's discharge plan will be determined by disposition. CM will continue to support Norm and discharge planning needs.
--- NOTE | 2020-12-25 12:22 | PGE_ITS ---
Date of Service Date of service: 12/25/20 Time of Service: 10:00 Assessment and Plan Assessment and plan (1) Confusion: Status: Acute Assessment and plan: His baseline. No agitated. Very vague. Talks most clearly about his time in the [facility]. I did stop his diazepam and left him on clonazepam only. He did seem a little bit less confused today. Was very confused yesterday. (2) Hx of multiple myeloma: Status: Chronic Assessment and plan: Terminal diagnosis. No further cancer treatment available. (3) Hospice care patient: Status: Acute Assessment and plan: Transitioning to RESPITE care as of 12/26 (tomorrow). DISCHARGE expected to occur on 12/31, or earlier if placement can be found. (4) Cancer related pain: Status: Chronic Assessment and plan: On fentanyl. Not needing breakthrough pain meds. (5) Discharge planning issues: Status: Acute Assessment and plan: Not safe to go home. 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 He told me that he is willing to go anywhere in [place]. He has medicaid and medicare. DISCHARGE NO LATER THAN 12/31, (unless he requires symptom management in the meantime). (6) Generalized weakness: Status: Acute Assessment and plan: Very sedentary. Told him he could walk in the halls with nursing if he wishes. He doesn't wank to. (7) Obstructive sleep apnea syndrome, mild: Status: Chronic Assessment and plan: Definitely snores. Falls asleep during the day frequently, (8) Insomnia: Status: Chronic Assessment and plan: Asked if he could have ambien 10 mg nightly. Advised, given his hospice status, that he may. Ordered. Qualifiers: Insomnia type: unspecified Qualified Code(s): G47.00 - Insomnia, unspecified Subjective Subjective Patient reports: no new complaints and feels better Interval history since last seen: Appears less confused this am. He is willing to have HIGHWAY LANDSCAPE ARCHITECT look at SNFs or ALs anywhere in [place]. He mentions a friend in [place]. He was asleep in his chair when I first came in. He nods off easily. Appears to have JEFF. Was snoring when I entered. Not interested in CPAP or nocturnal oxygen. Exam Narrative Exam Narrative: General: Norm was seen in his hospital room, sitting in his recliner. He was snoring when I walked in but quickly awoke and carried on a conversation, which was a big vague. He was less confused and very pleasant. HEENT: normocephalic, atraumatic, pupils equal and round, mucous membranes moist. Neck: supple. No LAD or JVD Respiratory: respirations appear even and unlabored. CTAB. GI: soft, round, nontender on palpation. obese Extremities: moves all 4 extremities, no focal weakness noted psych: confused at baseline. Anxiety controlled. His sense of time and sequence is notably off. He has clear executive dysfunction. He is not safe to live alone. He needs help with medications and with reminders to eat, bathe, etc. Skin: no rashes or lesions. Neuro: he knew he was in the hospital, he wasn't sure of the date. He wasn't sure who I was, though he knew I was a medical provider. Objective Last Vital Signs Temp 98.4 F 12/25/20 08:05 Pulse 89 12/25/20 08:05 Resp 18 12/25/20 08:05 BP 107/73 12/25/20 08:05 Pulse Ox 95 12/25/20 08:05
[2020-12-25] MEDS: Senna TAB PO (21:26)
[2020-12-25] MEDS: Zolpidem 10 MG TAB PO (21:58)
[2020-12-26] MEDS: Melatonin 3 MG TAB PO (04:19)
[2020-12-26 07:50] VITALS: BP 143/82; PULSE 89; RESP 18; TEMP 36.8; O2SAT 95
--- NOTE | 2020-12-26 08:12 | CMPROGNOTE_ITS ---
- If Service Date Differs Date of service: 12/26/20 Time of Service: 08:12 Care Management Progress Note S/O: CM attempts to meet with Norm but he is on the telephone having a very animated conversation, so CM does not disrupt his phone call. Norm is a hospice patient who remains at [facility] awaiting a SNF placement. CM will continue to follow. A: Norm is a 65 year old man admitted to [facility] on 12/23/2020 for uncontrolled pain and multiple myeloma. P: Plan remains for Norm to discharge to a SNF, as he is not safe to return home where he lives alone. SAVANNA Cruz, from [facility], is reportedly sending referrals to area SNFs. Details of Norm's discharge plan will be determined by disposition. CM will continue to support Norm and discharge planning needs.
[2020-12-26] MEDS: Calcium Carbonate *TUMS* 500 MG CHEW 200 MG PO ×2 (08:52→20:31)
[2020-12-26] MEDS: Apixaban 5 MG TAB PO ×2 (08:52→20:31)
[2020-12-26] MEDS: clonazePAM 1 MG TAB PO ×2 (08:52→20:31)
[2020-12-26] MEDS: Docusate Sodium 100 MG CAP PO ×2 (08:52→20:31)
[2020-12-26] MEDS: QUEtiapine 25 MG TAB PO (12:18)
[2020-12-26] MEDS: MORPHine Oral Concentrate 20 MG/ML 10 MG PO (16:02)
[2020-12-26] MEDS: HYDROmorphone 4 MG TAB PO (22:20)
[2020-12-27] MEDS: MORPHine Oral Concentrate 20 MG/ML 10 MG PO (02:46)
[2020-12-27] MEDS: Acetaminophen 500 MG TAB PO ×3 (02:46→23:12)
[2020-12-27 07:19] VITALS: BP 111/71; PULSE 87; RESP 19; TEMP 36.4; O2SAT 94
[2020-12-27] MEDS: Docusate Sodium 100 MG CAP PO ×2 (08:47→20:53)
[2020-12-27] MEDS: Apixaban 5 MG TAB PO ×2 (08:47→20:53)
[2020-12-27] MEDS: clonazePAM 1 MG TAB PO ×2 (08:47→20:53)
[2020-12-27] MEDS: Calcium Carbonate *TUMS* 500 MG CHEW 200 MG PO ×2 (08:48→20:53)
--- NOTE | 2020-12-27 09:37 | CMPROGNOTE_ITS ---
- If Service Date Differs Date of service: 12/27/20 Time of Service: 09:37 Care Management Progress Note S/O: Norm was sitting up on the side of the bed when CM met with him at his request early in the day. He appeared quite upset and stated that he did not know what was happening. He asserted no one tells me anything. Of immediate concern to him is his disposition. Norm shared that he does not know where he is going when he leaves [facility] and does not understand why he cannot go back home. He stated that he likes where he lives and that he knows there are people (tenants) there with much higher care needs than he has and they are able to get the help they need at home. PHILL spoke with Norm Bingham's piano case and bench assembler at [facility], who stated that he has been approved for services through [facility]. PHILL also spoke to Manju Bran, the Clinical Coordinator at Norm's [facility] practice, who confirmed that he has [facility] moderate needs and possibly high/highest. PHILL spoke with [facility] today about possible placement there but unless he is discharged from hospice, there would be no payer source. This afternoon PHILL had another lengthy conversation with Norm. He stated clearly that he wants to go home. He insists that he can care for himself. He shared that he has been paying people out of pocket to cook and clean and shop for him. He asserts that he is independent with ADLs and that he can ambulate with a cane or crutches. He stated that he knows he is dying and that he wants whatever time he has left to be spent at home where he is happiest. He also observed that he does not like people very much and living in a SNF with strangers is not something he wants to do. He stated that he would rather . At times during the conversation, Norm was clearly confused, referring to various people by different names and his timelines were constantly shifting. The one thing Norm was consistent about was his desire to go back home with increased services there. A: Norm is a 65 year old man admitted to [facility] on 12/23/2020 for uncontrolled pain and multiple myeloma. P: Plan remains for Norm to discharge to a SNF, as he is not safe to return home where he lives alone. Norm is not agreeable to this plan at this time. SAVANNA Cruz, from [facility], is reportedly sending referrals to area SNFs. Details of Norm's discharge plan will be determined by disposition. CM will continue to support Norm and discharge planning needs. c
[2020-12-27] MEDS: Zolpidem 10 MG TAB PO (20:53)
[2020-12-27] MEDS: HYDROmorphone 4 MG TAB PO (23:47)
[2020-12-28 07:35] VITALS: BP 142/80; PULSE 78; RESP 20; TEMP 36.9; O2SAT 94
[2020-12-28] MEDS: Calcium Carbonate *TUMS* 500 MG CHEW PO ×2 (08:03→21:30)
[2020-12-28] MEDS: Docusate Sodium 100 MG CAP PO ×2 (08:03→21:30)
[2020-12-28] MEDS: Polyethylene Glycol 3350 17 GM PACKET PO (08:03)
[2020-12-28] MEDS: Acetaminophen 500 MG TAB PO ×3 (08:04→21:30)
[2020-12-28] MEDS: clonazePAM 1 MG TAB PO ×2 (08:04→21:30)
[2020-12-28] MEDS: Apixaban 5 MG TAB PO ×2 (08:04→21:30)
--- NOTE | 2020-12-28 08:53 | PDOC.CMPRO ---
- If Service Date Differs Date of service: 12/28/20 Time of Service: 08:53 Care Management Progress Note S/O: Norm was sitting up in bed when CM met with him. He continues to maintain that he wants to go home. Dr. Angel saw him again in consultation today and found that his pain is better controlled. PHILL continues to work with community partners to establish a safe discharge plan for Norm. Conversations with [facility]'s CCC, Manju Bran, and Anthony CORRALES from [facility] , were initiated by PHILL in addition to one with Norm Casey's mental health case manager from [facility]. A tentative discharge is planned for Sunday if appropriate arrangements can be made. A: Norm is a 65 year old man admitted to [facility] on 12/23/2020 for uncontrolled pain and multiple myeloma. P: Plan is now for Norm to discharge home with an increase in supports. He will continue on hospice and follow up with their providers and care team. Norm will likely transport home via [facility] coordinated by PHILL. CM will continue to support Norm and discharge planning needs.
--- NOTE | 2020-12-28 11:05 | W.NUTCONSULT ---
Date of service: 12/28/20 Time of Service: 11:05 Nutritional Consult ASSESSMENT: 65 year old hospice patient admitted with symptom management. PMH: multiple myeloma. Asleep at visit today. Chart review indicates 40 lbs weight loss in last 4 months, as expected with aggressive CA. Following regular meal plan with varied intake (refusal-100%). BMI continues to indicate morbid obesity. Albumin low. NUTRITIONAL DIAGNOSIS: Malnutrition in view of significant wieght loss, low visceral protein stores, hx of poor intake due to pain/CA INTERVENTION: provide meal preferences MONITORING AND EVALUATION: will provide meals for optimal comfort and enjoyment Time Spent in Nutritional Counseling and Treatment: 0
[2020-12-28] MEDS: HYDROmorphone 4 MG TAB PO ×2 (13:52→21:30)
--- NOTE | 2020-12-28 18:09 | W.PM.PROGNOT ---
Date of Service Date of service: 12/28/20 Time of Service: 18:09 Assessment and Plan Assessment and plan (1) Discharge planning issues: Status: Acute Assessment and plan: Norm has changed his mind and now wants to go home. He does not have a caregiver in his apt. He has friends nearby, but none he can count on to come help him 12/03. He particularly has difficulty managing his medications. In the hospital, his medications are handed to him in a scheduled manner. At home, he was taking his medication all at once. (2) Generalized weakness: Status: Acute Assessment and plan: Encouraged him to walk more in the hallways. (3) Hospice care patient: Status: Acute Assessment and plan: Here on respite. Has opted against going to SNF. Will probably work on a negotiated risk contract with him and have him sign it. Discharge planned for no later than Sunday. (4) Lives alone: Status: Chronic Assessment and plan: No primary caregiver to help Norm when he needs assistance. 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 Not safe dispensing his medications on his own. Subjective Subjective Patient reports: no new complaints, feels better and tolerating a regular diet Interval history since last seen: Norm has told his Used Car Sales Manager, Seema Malloy RN that he does not want to go to a SNF at discharge, planned for this Sunday. He wants to go home directly. Hospice team is working to figure out how this could happen safely for Norm. Norm was receiving maximal services before this admission. I have made a few medical changes on this admission, but not much. His confusion seems to be baseline, likely due to a neurodegenerative disease, such as a type of dementia. Apparently, his friend offered to do more for him. Will continue to work on plan for discharge. Exam Narrative Exam Narrative: General: Norm was seen in his hospital room, sitting in his recliner. He was snoring when I walked in but quickly awoke and carried on a conversation, which was a big vague. He was less confused and very pleasant. HEENT: normocephalic, atraumatic, pupils equal and round, mucous membranes moist. Neck: supple. No LAD or JVD Respiratory: respirations appear even and unlabored. CTAB. GI: soft, round, nontender on palpation. obese Extremities: moves all 4 extremities, no focal weakness noted psych: confused at baseline. Anxiety controlled. His sense of time and sequence is notably off. He has clear executive dysfunction. He is not safe to live alone. He needs help with medications and with reminders to eat, bathe, etc. Skin: no rashes or lesions. Neuro: he knew he was in the hospital, he wasn't sure of the date. He wasn't sure who I was, though he knew I was a medical provider. Objective Last Vital Signs Temp 98.4 F 12/28/20 07:35 Pulse 78 12/28/20 07:35 Resp 20 12/28/20 07:35 BP 142/80 H 12/28/20 07:35 Pulse Ox 94 12/28/20 07:35
[2020-12-28] MEDS: QUEtiapine 25 MG TAB PO (21:30)
[2020-12-28] MEDS: fentaNYL 100 MCG PATCH TD (21:45)
[2020-12-28] MEDS: Zolpidem 10 MG TAB PO (23:17)
[2020-12-28] MEDS: Melatonin 3 MG TAB PO (23:17)
[2020-12-29 07:31] VITALS: BP 136/91; PULSE 96; RESP 18; TEMP 36; O2SAT 94
[2020-12-29] MEDS: Apixaban 5 MG TAB PO ×2 (09:53→20:03)
[2020-12-29] MEDS: Docusate Sodium 100 MG CAP PO ×2 (09:53→20:03)
[2020-12-29] MEDS: clonazePAM 1 MG TAB PO ×2 (09:53→20:03)
[2020-12-29] MEDS: Calcium Carbonate *TUMS* 500 MG CHEW PO ×2 (09:53→20:03)
--- NOTE | 2020-12-29 10:29 | PDOC.CMPRO ---
- If Service Date Differs Date of service: 12/29/20 Time of Service: 10:29 Care Management Progress Note S/O:Norm was sitting up in bed when CM met with him . He had been upset at various points during the day believing that he was being sent to a detention despite expressing his desire to go home. CM clarified that plans were in the works to get him the help he needs at home. At times Norm appears confused about what resources he actually has which has complicated the process. For example, yesterday he told CM that his uncle Anirudh has a lot of money and will pay for whatever Norm needs. A conversation with Anirudh today revealed that while he has helped Norm out with a small amount of money in the past, specifically to buy a plane ticket to go see his Dad in [place], he is unable to do so at this time. Norm has also stated that his friends and neighbors, Fidencio and Eloy, are available to help him whenever he needs. PHILL was able to confirm this with Fidencio (Sumaya) today. She stated that she lives very close to Norm and can stop in most anytime she is needed. She currently cleans and shops for him and occasionally helps with meals but said that she and her are willing to provide whatever care Norm needs. There is a plan for her to become his paid caregiver once she is approved through [employer] (in process). CM asked specifically about medication administration. Fidencio stated that she would be willing to monitor his medication administration and suggested that a lock box be obtained so that Norm could not accidentally take extra medications if he forgets that he took them. PHILL will follow up with Anthony and staff from [facility] to determine if a lock box can be obtained and to discuss the plan with them. Fidencio also confirmed that Norm is quite independent at home. As long as he has groceries, he can cook and she takes care of the rest of the fisher pound net or trap. He performs his own ADLs but she would be willing to assist if necessary. A: Norm is a 65 year old man admitted to [facility] on 12/23/2020 for uncontrolled pain and multiple myeloma. P: Plan is now for Norm to discharge home with an increase in supports. He will continue on hospice and follow up with their providers and care team. Norm will likely transport home via [facility] coordinated by CM. CM will continue to support Norm and discharge planning needs.
--- NOTE | 2020-12-29 11:05 | PGE_ITS ---
Date of Service Date of service: 12/29/20 Time of Service: 11:05 Assessment and Plan Assessment and plan (1) Multiple myeloma: Status: Acute Assessment and plan: With no further treatment options. He is on hospice for this diagnosis. (2) Cancer related pain: Status: Chronic Assessment and plan: He reports that his pain is well controlled with fentanyl 100 mcg/hr patch and hydromorphone for breakthrough pain. (3) Generalized weakness: Status: Acute Assessment and plan: He is able to get around with some discomfort. (4) Hospice care patient: Status: Acute Assessment and plan: He remains on respite. He wants to go home when he is discharged. Hospice will likely work on a negotiated risk contract with him and have him sign it. Discharge planned for no later than Sunday. (5) Confusion: Status: Acute Assessment and plan: He was clear at his visit today but certainly has intermittent confusion, possibly r/t underlying dementia. Not safe dispensing his medications on his own. (6) Discharge planning issues: Status: Acute Assessment and plan: Norm wants to go back to his apartment when he is discharged. He does not have a caregiver at home, but he does have funds through [employer]. He has friends that help intermittently. He may benefit from having a more structured caregiver schedule. Nursing has been assisting with medications, he will certainly need help with meds when he goes home. We talked about the possibility of him not doing well at home alone again, at which time we he would need to consider alternative living arrangements. Hospice is looking into whether he qualifies for more services at this point through [facility], since his needs have increased. Hospice will need to continue to explore placement options, he may do well in a community fpc setting if he does not do well at home again. Discussed with Dr. Angel, Hospice Machine Cloth Examiner. Subjective Subjective Interval history since last seen: Norm reports that he is doing OK. He wants to go home when it is time for discharge. He feels it is working at home with support from his hospice nurse. She gives meds in the morning and calls to remind him to take his evening medications. Admits he has a lot going on, facing his mortality, his father and stepmother are both not doing well and they cannot all be together. His stepmother is in the hospital for surgery today. He has a lot of stressors. States Long will help pay for help for him. Long is willing to take on one day per week with him, according to Norm. He has help from friends who are paid through [employer]. Questioning if he would qualify for more help. He reports that his friends state they will help more. He is getting around with some discomfort. He is wearing his Fentanyl patch now, he allowed nursing to put one on last night. His pain is controlled and he was able to sleep last night. He is eating and drinking, he does not like the food at the hospital. His bowels are moving. Exam Narrative Exam Narrative: General: well nourished man, sitting at the edge of his bed, awake and alert, not agitated. Engages in conversation, answers questions appropriately. HEENT: normocephalic, scar to right cheek, makes eye contact, mucous membranes moist. Cardiovascular: heart sounds regular, nontachycardic. Respiratory: respirations appear even and unlabored, lung sounds are diminished throughout. GI: +BS, soft, round abdomen, nondistended, nontender on palpation. Extremities: moves all 4 extremities freely. Objective Last Vital Signs Temp 36.0 C L 12/29/20 07:31 Pulse 96 H 12/29/20 07:31 Resp 18 12/29/20 07:31 BP 136/91 H 12/29/20 07:31 Pulse Ox 94 12/29/20 07:31
--- NOTE | 2020-12-29 16:02 | CHAPLAIN ---
Norm was standing at his door, relying on crutches for support. He said he just wanted to see what was going on in the busy area. He told me that he had resolution to one problem and found out that his new phone is at [employer] in [facility] and his friend will pick it up and bring it to him on Sunday. Norm complained about not being able to get straight information from anyone, and said he almost hung up on his 100-year old father today because he was so frustrated talking with him. He also said that getting information from his friend, about the phone, has been complicated and difficult. When he returned to his room, sitting on the side of the bed, he seemed more calm. He asked for a cola. Norm is here on hospice respite with Hospice staff working to figure if there's a way he can go home without having a 24/7 caregiver, as he has changed his mind about going to a SNF.
[2020-12-29] MEDS: Zolpidem 10 MG TAB PO (21:11)
[2020-12-30] MEDS: HYDROmorphone 4 MG TAB PO ×4 (01:11→23:31)
[2020-12-30 07:25] VITALS: BP 114/67; PULSE 106; RESP 19; TEMP 36.8; O2SAT 94
[2020-12-30] MEDS: clonazePAM 1 MG TAB PO ×2 (08:39→20:13)
[2020-12-30] MEDS: Docusate Sodium 100 MG CAP PO ×2 (08:39→20:13)
[2020-12-30] MEDS: Calcium Carbonate *TUMS* 500 MG CHEW PO ×2 (08:39→20:13)
[2020-12-30] MEDS: Apixaban 5 MG TAB PO ×2 (08:39→20:13)
--- NOTE | 2020-12-30 11:06 | PDOC.CMPRO ---
- If Service Date Differs Date of service: 12/30/20 Time of Service: 11:06 Care Management Progress Note S/O: Norm remains on M/S for hospice respite. His plan is to return home with an increase in services tomorrow. CM has inquired about a lock box for Norm's medications for his friend/caregiver to use in order for his medications to be better managed at home. CM will continue to follow. A: Norm is a 65 year old man admitted to [facility] on 12/23/2020 for uncontrolled pain and multiple myeloma. P: Plan is now for Norm to discharge home with an increase in supports. He will continue on hospice and follow up with their providers and care team. Norm will likely transport home via [facility] coordinated by [facility]. CM will continue to support Norm and discharge planning needs.
[2020-12-30] MEDS: Zolpidem 10 MG TAB PO (20:16)
[2020-12-30] MEDS: Senna TAB PO (20:19)
[2020-12-30 22:00] VITALS: BP 117/68; PULSE 86; RESP 18; TEMP 36.7; O2SAT 95
[2020-12-31 07:35] VITALS: BP 127/87; PULSE 98; RESP 19; TEMP 36.7; O2SAT 95
[2020-12-31] MEDS: clonazePAM 1 MG TAB PO (08:19)
[2020-12-31] MEDS: Apixaban 5 MG TAB PO (08:19)
[2020-12-31] MEDS: Docusate Sodium 100 MG CAP PO (08:19)
--- NOTE | 2020-12-31 10:22 | DSE_ITS ---
Date of service: 12/31/20 Time of Service: 10:22 DS: Diagnosis Discharge Diagnosis (1) Multiple myeloma: Status: Acute Asessment and Plan: No further treatments available. Dr Rowell was his oncologist. He has a life expectancy of 6 months or less. On hospice for this primary diagnosis (2) Cancer related pain: Status: Chronic Asessment and Plan: On fentanyl patch 100 mcg to treat recommend no breakthrough pain meds on a regular basis if in pain, would increase patches has trouble managing his meds at home (3) Generalized weakness: Status: Acute Asessment and Plan: very sedentary stayed in his hospital room most of the time is able to go home by private car encouraged him to be as active as he can be (4) Hospice care patient: Status: Acute Asessment and Plan: initially was on hospice symptom management was very confused, unable to care for himself at home and his caregiver was unable to provide the level of care Norm needed now going home with different caregiver in place (5) Confusion: Status: Acute Asessment and Plan: stopped his diazepam strongly encouraged minimal use of break-through opioids (6) Discharge planning issues: Status: Acute Asessment and Plan: home today hospice nurse to see him later today plan in place to use his [employer] funds to pay for help in his home he was initially agreeing to go to a SNF changed his mind while he was here will see if he is able to manage he did have maximal support services prior to this admission this time, he is choosing a different caregiver. perhaps with this change he will be able to manage at home. Discharge Plan Disposition Patient Disposition: HOME W/HOME HEALTH SERVICE Condition: Fair Discharge Details Reason For Visit: Uncontrolled pain, multiple myeloma Admit Date/Time: 12/23/20 12:44 Admit Provider: Elizabeth Angel Attending Provider: Elizabeth Angel Primary Care Provider: Olga Ramos Home Meds and New Rx's Prescriptions: Continued docusate sodium [Colace] 100 mg capsule 100 mg PO BID PRN (Reason: constipation) Qty: 60 RF: 0 bisacodyl [Dulcolax (bisacodyl)] 5 mg tablet,delayed release (DR/EC) 5 mg PO DAILY PRN (Reason: constipation) Qty: 30 RF: 0 magnesium citrate Solution 150 - 300 ml PO DAILY PRN (Reason: constipation) Qty: 296 RF: 0 carisoprodol [Soma] 350 mg tablet 350 mg PO TID PRN (Reason: muscle pain) Qty: 90 RF: 1 cholecalciferol (vitamin D3) [Vitamin D3] 2,000 UNIT tablet 2,000 unit PO DAILY Qty: 90 RF: 3 calcium carbonate [Tums] 200 mg calcium (500 mg) tablet,chewable 200 mg PO BID RF: 0 bisacodyl [Dulcolax (bisacodyl)] 10 mg suppository 10 mg RI DAILY PRN (Reason: constipation) Qty: 12 RF: 0 enalapril maleate 20 mg tablet 20 mg PO DAILY Qty: 90 RF: 3 clonazepam 1 mg tablet 1 mg PO BID Qty: 30 RF: 0 polyethylene glycol 3350 [Miralax] 17 gram/dose powder 17 g PO DAILY Qty: 1020 RF: 3 fentanyl 100 mcg/hr patch 72 hour 1 patch transdermal Q72H MDD 100 mcg Qty: 5 RF: 0 sennosides [senna] 8.6 mg Tablet 8.6 mg PO BID PRNRF: 0 quetiapine 25 mg Tablet 25 mg PO TID PRN PRN (Reason: Agitation) Qty: 10 RF: 0 Eliquis 5 mg tablet 5 mg PO BID Qty: 180 RF: 3 morphine concentrate 100 mg/5 mL (20 mg/mL) solution 5 - 20 mg PO DAILY RF: 0 magnesium oxide 400 mg (241.3 mg magnesium) tablet 128 mg PO DAILY RF: 0 prochlorperazine maleate [Compazine] 10 mg Tablet 10 mg PO Q6H PRNRF: 0 Discontinued melatonin 3 mg capsule 3 mg PO HS PRN (Reason: sleep) Qty: 30 RF: 0 pyridoxine (vitamin B6) [Vitamin B-6] 50 mg tablet 50 mg PO DAILY Qty: 90 RF: 3 clindamycin phosphate 1 % lotion 1 applic TP DAILY PRN (Reason: recurrent skin infection) Qty: 60 RF: 0 zolpidem 10 mg tablet 10 mg PO QHS PRN (Reason: insomnia) Qty: 30 RF: 0 hydromorphone 4 mg tablet 4 mg PO Q6H MDD 4 tabs PRN (Reason: pain) Qty: 30 RF: 0 diazepam [Valium] 5 mg tablet 5 mg PO TID PRN PRN (Reason: anxiety) Qty: 21 RF: 0 acyclovir 400 mg tablet 400 mg PO BID RF: 0 Narcan 4 mg/actuation spray,non-aerosol 1 spray intranasal Q2-3M PRN (Reason: opioid overdose) Qty: 2 RF: 0 Discharge Instructions Activity:: Activity as Tolerated Equipment/Supplies:: Walker Diet:: As Tolerated Discharge Orders Discharge Orders: Discharge Order (Routine); Ordered 12/31/20 Ordered By: Elizabeth Angel DS: Summary Time Spent with Patient providing and/or coordinating discharge services: Greater than 30 minutes Status at Discharge Functional status at discharge: uses cane/walker Overall status at discharge: patient is back to baseline Mental Status: other (confused always about details, poor sense of time, confabulates) Speech and Movement: speech and movement normal Mood: congruent mood and other (confused always about details, poor sense of time, confabulates) Affect: labile affect Quality: AMI Clinical Trial Participant: No Exam Narrative Exam Narrative: General: Obese man lying in bed. . He was sleeping when I walked in but quickly awoke and carried on a conversation. Seema Malloy RN,CM was present. He told us he someone had called him 20 minutes before our visit and told him he could not go home today. HEENT: normocephalic, atraumatic, mucous membranes moist. Neck: supple. No LAD or JVD CV regular, normal rate Respiratory: respirations appear even and unlabored. CTAB. GI: soft, round, nontender on palpation. obese, BS wnl Extremities: moves all 4 extremities, no focal weakness noted psych: confused at baseline. Anxiety relatively controlled. He has clear executive dysfunction. He told us he could not go home; we called hospice and determined this is not a problem. He is not safe to live alone without significant help, particularly with medications. Skin: no rashes or lesions. Neuro: Speech was wnl. Moving all 4 ext. He wasn't sure who I was, though he knew I was a medical provider. Psych Mental Status: other (confused always about details, poor sense of time, confabulates) Speech and Movement: speech and movement normal Mood: congruent mood and other (confused always about details, poor sense of time, confabulates) Affect: labile affect DS: Data Vitals/I&O Vitals and I&O: Vital Signs Temperature 98.1 F 12/31/20 07:35 Temperature Source Tympanic 12/31/20 07:35 Pulse 98 H 12/31/20 07:35 Pulse Rhythm Regular 12/26/20 09:00 Respiratory Rate 19 12/31/20 07:35 Respiratory Effort Non-Labored 12/26/20 09:00 Respiratory Depth Normal 12/26/20 09:00 Respiratory Pattern Normal 12/26/20 09:00 Blood Pressure 127/87 12/31/20 07:35 Pulse Oximetry 95 12/31/20 07:35 Oxygen Delivery Method Room Air 12/31/20 07:35 Oxygen Flow Rate 0 12/31/20 07:35 Pain Level 2 12/30/20 13:47 Comment 12/28/20 15:00 Intake & Output 12/30/20 12/30/20 12/31/20 11:59 23:59 11:59 Intake Total 240 / 300 60 / 300 300 / 300 Balance 240 / 300 60 / 300 300 / 300 Intake: Oral 240 / 300 60 / 300 300 / 300 Other: Urine Color Yellow Urine Appearance Clear Clear Clear Comment Patient voids in the toliet independently Voiding Methods Toilet [facility] Medical History Adult BMI > 30 Anxiety about health Cancer related pain 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 GI Screening EGD 07/28/15: no evidence of varices MELD: 7 (as of 04/10/2017) Should have influenza vaccination annually & pneumonia vaccination [id number] Confusion Depression (08/06/15) Sertraline in the past Encounter for hospice care discussion Essential hypertension 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 --> tx as DVT w/ indefinite anticoagulation due to cancer Hepatic encephalopathy (07/26/15) Hepatitis C (05/12/15) Genotype 2, s/p tx [facility] with SVR History of alcohol abuse 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 Hospice care patient admitted 12/05/20 Hypomagnesemia (03/20/16) Muscle cramps Insomnia Sleep Clinic [facility] C-PAP--not wearing December 2020 Lives alone Multiple myeloma not having achieved remission (09/13/17) 01/29/20 F/U with Dr Younger,[facility] Hematology 11/17/20 bone disease progression,extensive. non epic ambulatory specialists MM. 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 transplant Obstructive sleep apnea syndrome, mild (07/26/17) unable to tolerate C Pap Ambien agreement through sleep clinic Other chronic pain (08/06/15) Multifactorial, attributed to chronic Hep C, h/o chikungunya infxn, & OA Palliative care patient Portal hypertension (01/20/16) EGD 07/2015 with recommendation to repeat in 2-3 years (07/2018) per [facility] GI Renal cyst, left (06/01/15) abd US 05/31/15 Vitamin D deficiency (03/07/16) Surgical History Colectomy (08/20/05) fistula repair-pt unsure of exact date Colonoscopy - MAC (06/04/15) LIZETTE elbow surgery reattached tendon R knee surgery osteochondritis desicans L knee 1974 meniscus surgery L 1997 ORIF and cementing pathologic proximal humerus fracture (09/05/17) [facility] Dr. Mathis shoulder surgery L shoulder Status post cataract extraction and insertion of intraocular lens of left eye (12/30/18) toe surgery torn tendon 2nd toe R foot Family History Grandfather Diabetes Mother , Suicide Mental disorder Father Multiple myeloma Advanced age Social History Smoking/Tobacco Use Status: Never Smoking risk assessment performed?: Yes Alcohol Intake: never Drug use: Daily Substance use type: former substance user and marijuana Details: Pt. has a history of illicit/recreational drug use, but states that he has been sober for 20 years. Pt. states that he smokes marijuana daily and has been smoking it for 50 years. 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 Pets and animals: No Current gender identity: male What is your relationship status?: never How often do you talk on the phone with friends or family?: once per week How often do you get together with friends or relatives?: never Panel score (0-1 are the most socially isolated patients): 0 What type of physical activity do you participate in: none and sedentary lifestyle Seatbelt use: always Water heater temp set <120 deg: Yes Working smoke detector in home: Yes Fire extinguisher in home: Yes Carbon monox detector in home: Yes Firearms in home: Yes Firearms unloaded and locked: Yes Do you feel safe at home: Yes Do you feel safe in your relationship?: Yes Additional Social history: Lives alone. No children, no siblings. Father reportedly still alive, age 95, living in [facility], with MM. Relies on MONICA Bran as his support person. Has poor memory lately. Gets confused. Hard for him to follow directions on medications, etc. Has a labile personality.
[2020-12-31] MEDS: fentaNYL 100 MCG PATCH TD (11:37)
--- NOTE | 2020-12-31 13:43 | CMDISCH_ITS ---
- If Service Date Differs Date of service: 12/31/20 Time of Service: 13:43 LACE Index Scoring Tool - Questions: Length of Stay (in days): 7 - 13 Acuity (Admit via E.D.?): No Comorbidities: Any Tumor, Liver or Renal Disease E.D. Visits: 5 - Answers: Total Score: 14 Risk of Readmission: High Risk Care Management Discharge Reason for Hospitalization: Hospice for pain management Discharge Plan: Norm will be discharged home with a resumption of services t [facility]. He will follow up with his hospice team and plan of care. Norm has private caregivers who assist with meals, housework and transportation and these will continue. He will have medication management through [facility] with the help of his caregiver. He will transport via private vehicle with Sumaya, his caregiver. Patient/Family Education Needs: Discharge instructions, limitations, follow up plan of care, including Ask Me Three and self management. Services Needed at Discharge: Home Health Care Services
--- NOTE | 2020-12-31 15:36 | CHAPLAIN ---
Norm was ready to be discharged when I visited him today. He said a friend would be taking care of him and Hospice nurses and aides would continue to visit. This has been such a confusion of people, lots of people, I don't know who any of them are, so I guess I don't need to know, Norm said, explaining who was providing care for him. He said at home he listen to music, play his guitar and a third thing that I'm not remembering, so he would rather be home than here. He also said he was planning on leaving [place] and that he never expected to get stuck here. I don't know how realistic that plan is or if it is wishful thinking.
== END 2020-12-31 12:30 | disposition home health service (06) | DRG 948 ==
PROVIDERS: Admitting Provider Family Medicine; PCP Nurse Practitioner Family; Visit Provider Family Medicine
DX: G89.3 Neoplasm related pain (acute) (chronic) (principal); C90.00 Multiple myeloma not having achieved remission; I82.811 Embolism and thrombosis of superficial veins of right lower extremity; K76.6 Portal hypertension; R53.1 Weakness; Z60.2 Problems related to living alone; Z51.5 Encounter for palliative care; F41.8 Other specified anxiety disorders; Z79.01 Long term (current) use of anticoagulants; Z20.822 Contact with and (suspected) exposure to COVID-19; K70.30 Alcoholic cirrhosis of liver without ascites; B19.20 Unspecified viral hepatitis C without hepatic coma; F32.9 Major depressive disorder, single episode, unspecified; I10 Essential (primary) hypertension; F10.11 Alcohol abuse, in remission; G47.00 Insomnia, unspecified; G89.29 Other chronic pain; E55.9 Vitamin D deficiency, unspecified; M19.09 Primary osteoarthritis, other specified site; G47.33 Obstructive sleep apnea (adult) (pediatric); R41.0 Disorientation, unspecified; Z74.2 Need for assistance at home and no other household member able to render care
CPT/HCPCS: 87635

== ENCOUNTER 2021-01-02 22:02 | Emergency (ER) | payer MEDICARE, MEDICAID, SELFPAY ==
[2021-01-02 21:49] VITALS: BP 138/78; PULSE 116; RESP 18; O2SAT 96
--- NOTE | 2021-01-02 22:11 | ED.GENADUL_ITS ---
Discharge Plan Discharge Details Chief Complaint: Nk/Back Pain Primary Care Provider: Olga Ramos ED Provider: Fifi Escobar Home Meds and New Rx's Prescriptions: No Action docusate sodium [Colace] 100 mg capsule 100 mg PO BID PRN (Reason: constipation) Qty: 60 RF: 0 bisacodyl [Dulcolax (bisacodyl)] 5 mg tablet,delayed release (DR/EC) 5 mg PO DAILY PRN (Reason: constipation) Qty: 30 RF: 0 magnesium citrate Solution 150 - 300 ml PO DAILY PRN (Reason: constipation) Qty: 296 RF: 0 carisoprodol [Soma] 350 mg tablet 350 mg PO TID PRN (Reason: muscle pain) Qty: 90 RF: 1 cholecalciferol (vitamin D3) [Vitamin D3] 2,000 UNIT tablet 2,000 unit PO DAILY Qty: 90 RF: 3 calcium carbonate [Tums] 200 mg calcium (500 mg) tablet,chewable 200 mg PO BID RF: 0 bisacodyl [Dulcolax (bisacodyl)] 10 mg suppository 10 mg DC DAILY PRN (Reason: constipation) Qty: 12 RF: 0 enalapril maleate 20 mg tablet 20 mg PO DAILY Qty: 90 RF: 3 clonazepam 1 mg tablet 1 mg PO BID Qty: 30 RF: 0 polyethylene glycol 3350 [Miralax] 17 gram/dose powder 17 g PO DAILY Qty: 1020 RF: 3 fentanyl 100 mcg/hr patch 72 hour 1 patch transdermal Q72H MDD 100 mcg Qty: 5 RF: 0 sennosides [senna] 8.6 mg Tablet 8.6 mg PO BID PRNRF: 0 quetiapine 25 mg Tablet 25 mg PO TID PRN PRN (Reason: Agitation) Qty: 10 RF: 0 Eliquis 5 mg tablet 5 mg PO BID Qty: 180 RF: 3 morphine concentrate 100 mg/5 mL (20 mg/mL) solution 5 - 20 mg PO DAILY RF: 0 magnesium oxide 400 mg (241.3 mg magnesium) tablet 128 mg PO DAILY RF: 0 prochlorperazine maleate [Compazine] 10 mg Tablet 10 mg PO Q6H PRNRF: 0 Medical Decision Making Patient is a hospice patient, he is alert and oriented at this time, he states that tonight he simply could not contact his hospice care team and called an ambulance to ensure that, they would evaluate his bed for appropriate comfort He requests discharge home to his bed this evening and feels comfortable doing therapy Per EMS, patient safely ambulated with his walker which is his baseline Patient declines any additional interventions at this time Reviewed prior diagnostic lab results Reviewed patient's prior CT abdomen and pelvis does not show evidence of acute pathology He will follow up with his hospice care team tomorrow, his care provider will actually come to pick him up from the emergency room and bring him home at this time Differential Diagnosis Differential Diagnosis: Multiple myeloma, chronic back pain, fracture, strain Medical Records Medical records reviewed: Yes I reviewed the patient's medical records. Lab Data Lab results reviewed: Yes I reviewed the patient's lab results. HPI General Mode of arrival: ambulatory . Date/Time Provider Initiated Documentation: 01/02/21 22:11 . Limitations to Documentation: no limitations . Information obtained by: patient . HPI Narrative: Patient is on hospice for history of multiple myeloma and reportedly was discharged from the hospital yesterday. He states that his bed was uncomfortable and so he subsequently called the ambulance for transfer to the emergency room. He states that he wants somebody to look that bad and he did not know who the appropriate contact was. He denies any chest pain or shortness of breath. He denies any dizziness or weakness. He states that his back has been uncomfortable for a long period of time . He reportedly have his fentanyl patch on today. Request discharge home at this time, declines any additional intervention Related Data Home Medications Medication Instructions Recorded Confirmed cholecalciferol (vitamin D3) 2,000 unit PO DAILY #90 tab-cap 10/31/17 01/02/21 [Vitamin D3] calcium carbonate 200 mg calcium 200 mg PO BID tab 08/05/20 01/02/21 (500 mg) chewable tablet docusate sodium 100 mg capsule 100 mg PO BID PRN #60 cap 10/01/20 01/02/21 bisacodyl 5 mg tablet,delayed 5 mg PO DAILY PRN #30 tab 10/22/20 01/02/21 release magnesium citrate 150 - 300 ml PO DAILY PRN #296 ml 10/22/20 01/02/21 carisoprodol 350 mg tablet 350 mg PO TID PRN #90 tab 11/18/20 01/02/21 magnesium oxide 128 mg PO DAILY 11/22/20 01/02/21 prochlorperazine maleate 10 mg PO Q6H PRN 11/22/20 01/02/21 [Compazine] bisacodyl 10 mg rectal suppository 10 mg DC DAILY PRN #12 ea 12/05/20 01/02/21 sennosides [senna] 8.6 mg PO BID PRN 12/05/20 01/02/21 Eliquis 5 mg PO BID #180 tab 12/07/20 01/02/21 quetiapine 25 mg PO TID PRN PRN #10 tab 12/07/20 01/02/21 clonazepam 1 mg tablet 1 mg PO BID #30 tab 12/09/20 01/02/21 enalapril maleate 20 mg tablet 20 mg PO DAILY #90 tab-cap 12/09/20 01/02/21 polyethylene glycol 3350 17 17 g PO DAILY #1020 g 12/16/20 01/02/21 gram/dose oral powder fentanyl 100 mcg/hr transdermal 1 patch TRANSDERMAL Q72H #5 ea MDD 12/23/20 01/02/21 patch 100 mcg morphine concentrate 5 - 20 mg PO DAILY 12/23/20 01/02/21 Previous Rx's Medication Instructions Recorded cholecalciferol (vitamin D3) 2,000 unit PO DAILY #90 tab-cap 10/31/17 [Vitamin D3] docusate sodium 100 mg capsule 100 mg PO BID PRN #60 cap 10/01/20 bisacodyl 5 mg tablet,delayed 5 mg PO DAILY PRN #30 tab 10/22/20 release magnesium citrate 150 - 300 ml PO DAILY PRN #296 ml 10/22/20 carisoprodol 350 mg tablet 350 mg PO TID PRN #90 tab 11/18/20 bisacodyl 10 mg rectal suppository 10 mg DC DAILY PRN #12 ea 12/05/20 Eliquis 5 mg PO BID #180 tab 12/07/20 quetiapine 25 mg PO TID PRN PRN #10 tab 12/07/20 clonazepam 1 mg tablet 1 mg PO BID #30 tab 12/09/20 enalapril maleate 20 mg tablet 20 mg PO DAILY #90 tab-cap 12/09/20 polyethylene glycol 3350 17 17 g PO DAILY #1020 g 12/16/20 gram/dose oral powder fentanyl 100 mcg/hr transdermal 1 patch TRANSDERMAL Q72H #5 ea MDD 12/23/20 patch 100 mcg Allergies Allergy/AdvReac Type Severity Reaction Status Date / Time Sulfa (Sulfonamide Allergy Unknown told rx as Verified 01/02/21 21:54 Antibiotics) an General Stated Complaint: Nk/Back Pain DAMON: 4 Review of Systems Narrative: Review of systems negative x7 aside from where indicated in HPI PFSH Medical History Adult BMI > 30 Anxiety about health Cancer related pain 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, 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 Cirrhosis of liver (07/26/15) Due to hep C (s/p tx, see historical problems) & EtOH Followed by [facility] [place] [place] GI Screening EGD 07/28/15: no evidence of varices MELD: 7 (as of 04/10/2017) Should have influenza vaccination annually & pneumonia vaccination [id number] Confusion Depression (08/06/15) Sertraline in the past Encounter for hospice care discussion Essential hypertension 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 --> tx as DVT w/ indefinite anticoagulation due to cancer Hepatic encephalopathy (07/26/15) Hepatitis C (05/12/15) Genotype 2, s/p tx [facility] [place] [place] with SVR History of alcohol abuse 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 Hospice care patient admitted 12/05/20 Hypomagnesemia (03/20/16) Muscle cramps Insomnia Sleep [facility] C-PAP--not wearing December 2020 Lives alone Multiple myeloma not having achieved remission (09/13/17) 01/29/20 F/U with Dr Younger,[facility] [place] [place] Hematology 11/17/20 bone disease progression,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 transplant Obstructive sleep apnea syndrome, mild (07/26/17) unable to tolerate C Pap Ambien agreement through sleep clinic Other chronic pain (08/06/15) Multifactorial, attributed to chronic Hep C, h/o chikungunya infxn, & OA Palliative care patient Portal hypertension (01/20/16) EGD 07/2015 with recommendation to repeat in 2-3 years (07/2018) per [facility] [place] [place] GI Renal cyst, left (06/01/15) abd US 05/31/15 Vitamin D deficiency (03/07/16) Surgical History Colectomy (08/20/05) fistula repair-pt unsure of exact date Colonoscopy - MAC (06/04/15) LIZETTE elbow surgery reattached tendon R knee surgery osteochondritis desicans L knee 1974 meniscus surgery L 1998 ORIF and cementing pathologic proximal humerus fracture (09/05/17) [facility] [place] [place] Dr. Mathis shoulder surgery L shoulder Status post cataract extraction and insertion of intraocular lens of left eye (12/30/18) toe surgery torn tendon 2nd toe R foot Family History Grandfather Diabetes Mother , Suicide Mental disorder Father Multiple myeloma Advanced age Social History Smoking/Tobacco Use Status: Never Smoking risk assessment performed?: Yes Alcohol Intake: never Drug use: Daily Substance use type: former substance user and marijuana Details: Pt. has a history of illicit/recreational drug use, but states that he has been sober for 20 years. Pt. states that he smokes marijuana daily and has been smoking it for 50 years. 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 Pets and animals: No Current gender identity: male What is your relationship status?: never How often do you talk on the phone with friends or family?: once per week How often do you get together with friends or relatives?: never Panel score (0-1 are the most socially isolated patients): 0 What type of physical activity do you participate in: none and sedentary lifestyle Seatbelt use: always Water heater temp set <120 deg: Yes Working smoke detector in home: Yes Fire extinguisher in home: Yes Carbon monox detector in home: Yes Firearms in home: Yes Firearms unloaded and locked: Yes Do you feel safe at home: Yes Do you feel safe in your relationship?: Yes Additional Social history: Lives alone. No children, no siblings. Father reportedly still alive, age 95, living in [facility], with MM. Relies on MONICA Bran as his support person. Has poor memory lately. Gets confused. Hard for him to follow directions on medications, etc. Has a labile personality. Exam Const General: cooperative Orientation: alert and oriented x3 Eyes Pupils: PERRL Resp Effort & Inspection: normal respiratory effort Cardio Rate: tachycardic GI Other: Nontender Neuro General: patient alert Course Vital Signs Vital signs: Vital Signs Pulse 116 H 01/02/21 21:49 Respiratory Rate 18 01/02/21 21:49 Blood Pressure 138/78 01/02/21 21:49 Pulse Oximetry 96 01/02/21 21:49 Pulse 116 H 01/02/21 21:49 Respiratory Rate 18 01/02/21 21:49 Respiratory Effort 01/02/21 21:55 Blood Pressure 138/78 01/02/21 21:49 Pulse Oximetry 96 01/02/21 21:49 Pain Level 3 01/02/21 21:49
== END 2021-01-02 22:40 | disposition home or self-care (01) ==
PROVIDERS: Emergency Provider Physician Assistant; PCP Nurse Practitioner Family
DX: M54.5 Low back pain (principal); G89.3 Neoplasm related pain (acute) (chronic)
CPT/HCPCS: 99283

== ENCOUNTER 2021-05-09 11:12 | Inpatient (IN) | payer OTHER, SELFPAY ==
[2021-05-09 11:12] VITALS: BP 108/69; PULSE 118; RESP 20; TEMP 36.4; O2SAT 95
--- NOTE | 2021-05-09 11:15 | DI.RAD_ITS ---
Exam(s) XR KNEE RT 2V AP,LAT EXAM: XR KNEE RT 2V AP,LAT CLINICAL HISTORY: trauma, pain. TECHNIQUE: 2D digital imaging was performed. COMPARISON: No exams were available for comparison FINDINGS: Limited two view portable study reveals no obvious right knee fracture. No osseous lesions. IMPRESSION: DATA REPOSITORY: RADIATION DOSE DELIVERED:
--- NOTE | 2021-05-09 11:15 | DI.RAD_ITS ---
Exam(s) XR KNEE LT 2V AP,LAT EXAM: XR KNEE LT 2V AP,LAT CLINICAL HISTORY: trauma, knee pain. TECHNIQUE: 2D digital imaging was performed. COMPARISON: CR XR KNEE RT 2V AP,LAT from 05/09/2021 FINDINGS: Limited two views of the left knee reveal no evidence of obvious fracture nor joint effusion. Please note that there is a significant fracture higher up in the ipsilateral left femur. IMPRESSION: DATA REPOSITORY: RADIATION DOSE DELIVERED:
--- NOTE | 2021-05-09 11:15 | DI.RAD_ITS ---
Exam(s) XR FEMUR RT EXAM: XR FEMUR RT CLINICAL HISTORY: trauma, pain. TECHNIQUE: 2D digital imaging was performed. COMPARISON: CR XR FEMUR RT from 05/26/2020 FINDINGS: There is an angulated transverse fracture at the midshaft of the right femur. Appearance of the bone at this level indicates that this is probably also a pathologic fracture. Permeative abnormal marrow pattern is actually more evident in the opposite-left femur (which is also fracture). IMPRESSION: DATA REPOSITORY: RADIATION DOSE DELIVERED:
--- NOTE | 2021-05-09 11:15 | DI.RAD_ITS ---
Exam(s) XR PELVIS AP EXAM: XR PELVIS AP CLINICAL HISTORY: trauma, pain. TECHNIQUE: 2D digital imaging was performed. COMPARISON: CR XR HIP RT COMPLETE AP PELVIS from 05/06/2020 FINDINGS: There is displaced fracture of the left femur which appears pathologic. Femoral head and neck appear intact. In addition, there is significant lucent area in the bone of the right hemipelvis, specific ally the superior pubic ramus. Lytic involvement and probable pathologic fracture also evident at th is level. IMPRESSION: DATA REPOSITORY: RADIATION DOSE DELIVERED:
--- NOTE | 2021-05-09 11:15 | DI.RAD_ITS ---
Exam(s) XR FEMUR LT EXAM: XR FEMUR LT CLINICAL HISTORY: trauma, pain. TECHNIQUE: 2D digital imaging was performed. COMPARISON: CR XR FEMUR RT from 05/09/2021 FINDINGS: Portable views reveal a displaced oblique fracture extending from the immediate subtrochanteric regio n to the midshaft level. This is superimposed upon an abnormal permeative marrow pattern and therefo re this is most probably a pathologic fracture. No hip dislocation. IMPRESSION: DATA REPOSITORY: RADIATION DOSE DELIVERED:
--- NOTE | 2021-05-09 11:51 | ED.GENADUL_ITS ---
Discharge Plan Disposition Patient Disposition: [facility] INPATIENT Discharge Details Clinical Impression: Femur fracture, left, Femur fracture, right Admit Date/Time: 05/09/21 13:02 Admit Provider: Annmarie Burt Attending Provider: Annmarie Burt Primary Care Provider: Olga Ramos ED Provider: Arleth Castillo Discharge Data Discharge Date/Time-TO BE ENTERED AT DEPARTURE: 05/09/21 13:50 Medical Decision Making Norm Dunaway is a 66-year-old man with a history of multiple myeloma on hospice at home who presented to the emergency department with bilateral thigh pain after moving from sitting to standing and hearing snap in both thighs. Concern for pathologic fractures of the pelvis/hips/femurs/knees. Exam/history at this time for formal is not consistent with sepsis, significant trauma to the head/spine/thorax/abdomen/upper extremities. Plan for x-rays pelvis, b/l femurs, b/l knees. Pelviuc fracture, b/l femur fxs on xray, probable pelvic fx. Plan for admission to medicine. Patient discussed plan with Dr. Burt, decided that she would not want to have surgery for femur fractures and will not walk again in his life. Plan for admission to hospice. Dr. Burt requesting 20 mg IV morphine bolus x1, morphine [employer] with drip at 15 mg/h with 15 mg every 15 minutes as needed. Will order as requested. Medical Records Medical records reviewed: Yes I reviewed the patient's medical records. Imaging Data Radiologic Study: Attestation: I personally reviewed and interpreted this imaging study as follows: Radiologist's impression: EXAM: XR PELVIS AP CLINICAL HISTORY: trauma, pain. TECHNIQUE: 2D digital imaging was performed. COMPARISON: CR XR HIP RT COMPLETE AP PELVIS from 05/06/2020 FINDINGS: There is displaced fracture of the left femur which appears pathologic. Femoral head and neck appear intact. In addition, there is significant lucent area in the bone of the right hemipelvis, specifically the superior pubic ramus. Lytic involvement and probable pathologic fracture also evident at this level. EXAM: XR KNEE RT 2V AP,LAT CLINICAL HISTORY: trauma, pain. TECHNIQUE: 2D digital imaging was performed. COMPARISON: No exams were available for comparison FINDINGS: Limited two view portable study reveals no obvious right knee fracture. No osseous lesions. EXAM: XR KNEE LT 2V AP,LAT CLINICAL HISTORY: trauma, knee pain. TECHNIQUE: 2D digital imaging was performed. COMPARISON: CR XR KNEE RT 2V AP,LAT from 05/09/2021 FINDINGS: Limited two views of the left knee reveal no evidence of obvious fracture nor joint effusion. Please note that there is a significant fracture higher up in the ipsilateral left femur. EXAM: XR FEMUR RT CLINICAL HISTORY: trauma, pain. TECHNIQUE: 2D digital imaging was performed. COMPARISON: CR XR FEMUR RT from 05/26/2020 FINDINGS: There is an angulated transverse fracture at the midshaft of the right femur. Appearance of the bone at this level indicates that this is probably also a pathologic fracture. Permeative abnormal marrow pattern is actually more evident in the opposite-left femur (which is also fracture). EXAM: XR FEMUR LT CLINICAL HISTORY: trauma, pain. TECHNIQUE: 2D digital imaging was performed. COMPARISON: CR XR FEMUR RT from 05/09/2021 FINDINGS: Portable views reveal a displaced oblique fracture extending from the immediate subtrochanteric region to the midshaft level. This is superimposed upon an abnormal permeative marrow pattern and therefore this is most probably a pathologic fracture. No hip dislocation. Lab Data Lab results reviewed: Yes I reviewed the patient's lab results. Labs: Laboratory Tests Range/Units 05/09/21 05/09/21 05/09/21 12:15 12:50 12:50 WBC (4.4-10.8) 10^3/uL 9.04 RBC (4.36-5.78) 10^6/uL 4.11 L Hgb (13.5-17.5) g/dL 12.4 L Hct (40.0-50.0) % 36.7 L MCV (80-95) fL 89.3 MCH (27.0-33.0) pg 30.2 MCHC (32.0-36.0) % 33.8 RDW (11.8-14.1) % 12.9 Plt Count (130-400) 10^3/uL 180 MPV (8.0-11.0) fL 11.0 Immature Gran % 0.3 Neutrophils % 79.9 Lymphocytes % 11.3 Monocytes % 8.3 Eosinophils % 0.0 Basophils % 0.2 Nucleated RBC % % 0 Absolute Neutrophils (1.2-6.7) 10^3/uL 7.22 H Absolute Lymphocytes (1.2-3.4) 10^3/uL 1.02 L Absolute Monocytes (0.1-0.8) 10^3/uL 0.75 Absolute Eosinophils (0.0-0.7) 10^3/uL 0.00 Absolute Basophils (0.0-0.2) 10^3/uL 0.02 PT (9.3-11.0) sec INR (0.9-1.1) APTT (21.0-27.5) sec Sodium (136-145) mmol/L 138 Potassium (3.5-5.1) mmol/L 4.2 Chloride (98-107) mmol/L 104 Carbon Dioxide (21.0-32.0) mmol/L 26.7 Anion Gap (3-11) mmol/L 7.3 BUN (7-18) mg/dL 16 Creatinine (0.70-1.30) mg/dL 1.0 Estimated GFR/1.73 m2 (mL/min/1.73m2) >= 60.00 Glucose (74-106) mg/dL 172 H Calcium (8.5-10.1) mg/dL 9.4 Total Bilirubin (0.2-1.0) mg/dL 0.9 AST (15-37) U/L 90 H ALT (16-63) U/L 47 Alkaline Phosphatase (46-116) U/L 118 H Total Protein (6.4-8.2) g/dL 7.0 Albumin (3.4-5.0) g/dL 3.2 L COVID-19 Source Nasal/Nares SARS-CoV-2 (PCR) (Negative) Negative Patient ABO/Rh Antibody Screen Range/Units 05/09/21 05/09/21 12:50 12:50 WBC (4.4-10.8) 10^3/uL RBC (4.36-5.78) 10^6/uL Hgb (13.5-17.5) g/dL Hct (40.0-50.0) % MCV (80-95) fL MCH (27.0-33.0) pg MCHC (32.0-36.0) % RDW (11.8-14.1) % Plt Count (130-400) 10^3/uL MPV (8.0-11.0) fL Immature Gran % Neutrophils % Lymphocytes % Monocytes % Eosinophils % Basophils % Nucleated RBC % % Absolute Neutrophils (1.2-6.7) 10^3/uL Absolute Lymphocytes (1.2-3.4) 10^3/uL Absolute Monocytes (0.1-0.8) 10^3/uL Absolute Eosinophils (0.0-0.7) 10^3/uL Absolute Basophils (0.0-0.2) 10^3/uL PT (9.3-11.0) sec 11.2 H INR (0.9-1.1) 1.1 APTT (21.0-27.5) sec 24.7 Sodium (136-145) mmol/L Potassium (3.5-5.1) mmol/L Chloride (98-107) mmol/L Carbon Dioxide (21.0-32.0) mmol/L Anion Gap (3-11) mmol/L BUN (7-18) mg/dL Creatinine (0.70-1.30) mg/dL Estimated GFR/1.73 m2 (mL/min/1.73m2) Glucose (74-106) mg/dL Calcium (8.5-10.1) mg/dL Total Bilirubin (0.2-1.0) mg/dL AST (15-37) U/L ALT (16-63) U/L Alkaline Phosphatase (46-116) U/L Total Protein (6.4-8.2) g/dL Albumin (3.4-5.0) g/dL COVID-19 Source SARS-CoV-2 (PCR) (Negative) Patient ABO/Rh A Positive Antibody Screen NEGATIVE HPI General Mode of arrival: EMS . Date/Time Provider Initiated Documentation: 05/09/21 11:19 . Limitations to Documentation: no limitations . Information obtained by: patient, RN notes reviewed and old records reviewed . HPI Narrative: Norm Dunaway is a 66-year-old man with history of multiple myeloma currently on hospice, portal hypertension, obstructive sleep apnea, hypertension presenting to the hospital with chief complaint bilateral leg pain. Patient reports that he was sitting on the toilet, went to stand up, and upon standing felt a snap in both sides. Patient was then unable to bear her weight and fell to the ground. He states that he did not hit his head, no other injury. Patient reports that he has pain in both thighs and both knees and cannot stand. Patient reports that he has generalized pain throughout, but has no other new pain. He denies any recent fever, cough, shortness of breath, vomiting. He denies numbness, focal weakness. Patient states that he is on hospice and was scheduled to be placed inpatient tomorrow as the assistance that he has at home is no longer enough. Related Data Home Medications Medication Instructions Recorded Confirmed calcium carbonate 200 mg calcium 200 mg PO BID tab 08/05/20 05/09/21 (500 mg) chewable tablet docusate sodium 100 mg capsule 100 mg PO BID PRN #60 cap 10/01/20 05/09/21 magnesium citrate 150 - 300 ml PO DAILY PRN #296 ml 10/22/20 05/09/21 prochlorperazine maleate 10 mg PO Q6H PRN 11/22/20 05/09/21 [Compazine] bisacodyl 10 mg rectal suppository 10 mg MA DAILY PRN #12 ea 12/05/20 05/09/21 sennosides [senna] 8.6 mg PO BID PRN 12/05/20 05/09/21 Eliquis 5 mg PO BID #180 tab 12/07/20 05/09/21 quetiapine 25 mg PO TID PRN PRN #10 tab 12/07/20 05/09/21 clonazepam 1 mg tablet 1 mg PO BID #30 tab 12/09/20 05/09/21 enalapril maleate 20 mg tablet 20 mg PO DAILY #90 tab-cap 12/09/20 05/09/21 polyethylene glycol 3350 17 17 g PO DAILY #1020 g 12/16/20 05/09/21 gram/dose oral powder acetaminophen 500 mg capsule 500 mg PO Q6H PRN #90 cap 02/10/21 05/09/21 carisoprodol 350 mg tablet 350 mg PO QID PRN #90 tab MDD 02/23/21 05/09/21 hospice morphine concentrate 100 mg/5 mL 5 - 20 mg PO Q1H PRN ml 02/23/21 05/09/21 (20 mg/mL) oral solution morphine concentrate 100 mg/5 mL 5 - 20 mg PO Q1H PRN #30 ml MDD 02/23/21 05/09/21 (20 mg/mL) oral solution hospice fentanyl 100 mcg/hr transdermal 1 patch TRANSDERMAL Q72H #10 ea 03/14/21 05/09/21 patch MDD 200 mcg fentanyl 50 mcg/hr transdermal 1 patch TRANSDERMAL Q72H #5 ea [facility] 04/19/21 05/09/21 patch hospice fentanyl 25 mcg/hr transdermal 1 patch TRANSDERMAL Q72H #5 ea [facility] 04/20/21 05/09/21 patch 275 mcg magnesium oxide 400 mg (241.3 mg 800 mg PO DAILY #180 tab 04/29/21 05/09/21 magnesium) tablet Previous Rx's Medication Instructions Recorded docusate sodium 100 mg capsule 100 mg PO BID PRN #60 cap 10/01/20 magnesium citrate 150 - 300 ml PO DAILY PRN #296 ml 10/22/20 bisacodyl 10 mg rectal suppository 10 mg MA DAILY PRN #12 ea 12/05/20 Eliquis 5 mg PO BID #180 tab 12/07/20 quetiapine 25 mg PO TID PRN PRN #10 tab 12/07/20 clonazepam 1 mg tablet 1 mg PO BID #30 tab 12/09/20 enalapril maleate 20 mg tablet 20 mg PO DAILY #90 tab-cap 12/09/20 polyethylene glycol 3350 17 17 g PO DAILY #1020 g 12/16/20 gram/dose oral powder acetaminophen 500 mg capsule 500 mg PO Q6H PRN #90 cap 02/10/21 carisoprodol 350 mg tablet 350 mg PO QID PRN #90 tab MDD 02/23/21 [facility] morphine concentrate 100 mg/5 mL 5 - 20 mg PO Q1H PRN #30 ml [facility] 02/23/21 (20 mg/mL) oral solution hospice fentanyl 100 mcg/hr transdermal 1 patch TRANSDERMAL Q72H #10 ea 03/14/21 patch MDD 200 mcg fentanyl 50 mcg/hr transdermal 1 patch TRANSDERMAL Q72H #5 ea [facility] 04/19/21 patch hospice fentanyl 25 mcg/hr transdermal 1 patch TRANSDERMAL Q72H #5 ea [facility] 04/20/21 patch 275 mcg magnesium oxide 400 mg (241.3 mg 800 mg PO DAILY #180 tab 04/29/21 magnesium) tablet Allergies Allergy/AdvReac Type Severity Reaction Status Date / Time Sulfa (Sulfonamide Allergy Unknown told rx as Verified 05/09/21 11:23 Antibiotics) an General Stated Complaint: Orthopedic DAMON: 3 Review of Systems Narrative: Constitutional: denies fevers Eyes: denies eye pain ENT: denies ear pain, dental pain, sore throat Cardiovascular: denies chest pain Respiratory: denies SOB, cough GI: denies abdominal pain, vomiting, diarrhea : denies flank pain MSK: denies new back pain, new neck pain, new upper extremity pain, reports diffuse extremity pain at baseline, new bilateral thigh pain, new bilateral knee pain Skin: denies rash Neuro: denies headaches, numbness PFSH Medical History Adult BMI > 30 Anxiety about health Cancer related pain 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, 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 Cirrhosis of liver (07/26/15) Due to hep C (s/p tx, see historical problems) & EtOH Followed by [facility] GI Screening EGD 07/28/15: no evidence of varices MELD: 7 (as of 04/10/2017) Should have influenza vaccination annually & pneumonia vaccination [id number] Confusion Depression (08/06/15) Sertraline in the past Encounter for hospice care discussion Essential hypertension 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 --> tx as DVT w/ indefinite anticoagulation due to cancer Hepatic encephalopathy (07/26/15) Hepatitis C (05/12/15) Genotype 2, s/p tx [facility] with SVR History of alcohol abuse 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 transplant Obstructive sleep apnea syndrome, mild (07/26/17) unable to tolerate C Pap Ambien agreement through sleep clinic Other chronic pain (08/06/15) Multifactorial, attributed to chronic Hep C, h/o chikungunya infxn, & OA Palliative care patient Portal hypertension (01/20/16) EGD 07/2015 with recommendation to repeat in 2-3 years (07/2018) per [facility] GI Renal cyst, left (06/01/15) abd US 05/31/15 Vitamin D deficiency (03/07/16) Surgical History Colectomy (08/20/05) fistula repair-pt unsure of exact date Colonoscopy - MAC (06/04/15) LIZETTE elbow surgery reattached tendon R knee surgery osteochondritis desicans L knee 1974 meniscus surgery L 1998 ORIF and cementing pathologic proximal humerus fracture (09/05/17) [facility] Dr. Mathis shoulder surgery L shoulder Status post cataract extraction and insertion of intraocular lens of left eye (12/30/18) toe surgery torn tendon 2nd toe R foot Family History Grandfather Diabetes Mother , Suicide Mental disorder Father Multiple myeloma Advanced age Social History Smoking/Tobacco Use Status: Never Smoking risk assessment performed?: Yes Alcohol Intake: never Drug use: Daily Substance use type: former substance user and marijuana Details: Pt. has a history of illicit/recreational drug use, but states that he has been sober for 20 years. Pt. states that he smokes marijuana daily and has been smoking it for 50 years. 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 Pets and animals: No Current gender identity: male What is your relationship status?: never How often do you talk on the phone with friends or family?: once per week How often do you get together with friends or relatives?: never Panel score (0-1 are the most socially isolated patients): 0 What type of physical activity do you participate in: none and sedentary lifestyle Seatbelt use: always Water heater temp set <120 deg: Yes Working smoke detector in home: Yes Fire extinguisher in home: Yes Carbon monox detector in home: Yes Firearms in home: Yes Firearms unloaded and locked: Yes Do you feel safe at home: Yes Do you feel safe in your relationship?: Yes Additional Social history: Lives alone. No children, no siblings. Father reportedly still alive, age 95, living in [place], with MM. Relies on MONICA Bran as his support person. Has poor memory lately. Gets confused. Hard for him to follow directions on medications, etc. Has a labile personality. Exam Narrative Exam Narrative: Constitutional: Chronically ill-appearing, pleasant, conversing normally HENT: head atraumatic/normocephalic/normal inspection, mucous membranes moist Eyes: conjunctiva normal, sclera normal, pupils 3mm b/l Neck: no stridor, normal ROM, trachea midline Resp: normal work of breathing, speaking in full sentences Cardio: normal rate, normal rhythm GI: abdomen soft, non-tender, non-distended Skin: warm, dry, normal color, no rash Neuro: alert, not altered, grossly non-focal, normal tone Ext: Tenderness palpation bilateral thighs. No tenderness palpation bilateral hips, bilateral knees, bilateral tibias, bilateral ankles. Significant pain with ranging bilateral hips/bilateral knees. No posterior calf tenderness to palpation. DP pulses intact and symmetric. Feet are warm and well perfused, normal sensation. Psych: normal mood, normal affect, normal behavior Course Vital Signs Vital signs: Vital Signs Temperature 36.4 C L 05/09/21 11:12 Pulse 118 H 05/09/21 11:12 Respiratory Rate 05/09/21 11:12 Blood Pressure 108/69 05/09/21 11:12 Pulse Oximetry 95 05/09/21 11:12 Temperature 36.4 C L 05/09/21 11:12 Temperature Source Skin 05/09/21 11:12 Pulse 118 H 05/09/21 11:12 Respiratory Rate 05/09/21 11:12 Respiratory Effort 05/09/21 11:19 Blood Pressure 108/69 05/09/21 11:12 Blood Pressure Position Supine 05/09/21 11:12 Pulse Oximetry 95 05/09/21 11:12 Oxygen Delivery Method Room Air 05/09/21 11:12 Oxygen Flow Rate 0 05/09/21 11:12 Pain Level 8 05/09/21 11:12
[2021-05-09 13:06] LABS: Abs Immature Grans 0.03 10^3/uL (0.0-0.06); Absolute Basophil Count 0.02 10^3/uL (0.0-0.2); Absolute Lymphocyte Count 1.02 10^3/uL (1.2-3.4); Absolute Monocyte Count 0.75 10^3/uL (0.1-0.8); Absolute Neutrophil Count 7.22 10^3/uL (1.2-6.7); Basophils % 0.2; HCT 36.7 % (40.0-50.0); HGB 12.4 g/dL (13.5-17.5); Immature Grans % 0.3; Lymphocytes % 11.3; MCH 30.2 pg (27.0-33.0); MCHC 33.8 % (32.0-36.0); MCV 89.3 fL (80-95); Monocytes % 8.3; Neutrophils % 79.9; Nucleated RBC 0 %; Platelet Count 180 10^3/uL (130-400); RBC 4.11 10^6/uL (4.36-5.78); RDW 12.9 % (11.8-14.1); RDW-SD 42.4 fL; WBC 9.04 10^3/uL (4.4-10.8)
[2021-05-09 13:07] LABS: Source Nasal/Nares
[2021-05-09 13:28] LABS: INR 1.1 (0.9-1.1); PTT Activated 24.7 sec (21.0-27.5); Prothrombin Time 11.2 sec (9.3-11.0)
[2021-05-09 13:33] LABS: ALT 47 U/L (16-63); AST 90 U/L (15-37); Albumin 3.2 g/dL (3.4-5.0); Alkaline Phosphatase 118 U/L (46-116); Anion Gap 7.3 mmol/L (3-11); BUN 16 mg/dL (7-18); Bilirubin, Total 0.9 mg/dL (0.2-1.0); CO2 26.7 mmol/L (21.0-32.0); Calcium 9.4 mg/dL (8.5-10.1); Chloride 104 mmol/L (98-107); Glucose 172 mg/dL (74-106); Potassium 4.2 mmol/L (3.5-5.1); Sodium 138 mmol/L (136-145)
[2021-05-09] MEDS: MORPHine 10 MG/ML VIAL 20 MG IVP (13:44)
[2021-05-09 14:00] LABS: COVID-19 PCR Negative (Negative)
[2021-05-09 14:16] VITALS: BP 110/71; PULSE 143; RESP 20; TEMP 36.9; O2SAT 97
[2021-05-09] MEDS: LORazepam 2 MG/ML VIAL 1 MG IVP (14:25)
[2021-05-09] MEDS: Normal Saline Flush 10 ML SYR IVP (14:26)
[2021-05-09] MEDS: Lidocaine 2% Jelly 6 ML SYR (14:59)
--- NOTE | 2021-05-09 16:56 | W.PM.HP.N ---
Date of service: 05/09/21 Time of Service: 16:56 Assessment and Plan Assessment and plan (1) Femur fracture, left: Status: Acute (2) Femur fracture, right: Status: Acute (3) Pathological fracture in other disease, pelvis, subsequent encounter for fracture with delayed healing: Status: Acute (4) Multiple myeloma: Status: Acute (5) DNR (do not resuscitate): Status: Acute (6) Anxiety about health: Status: Acute (7) Greater saphenous vein embolism: Status: Acute Qualifiers: Laterality: right Qualified Code(s): I82.811 - Embolism and thrombosis of superficial veins of right lower extremity (8) Other chronic pain: Status: Chronic (9) Hospice care patient: Status: Acute Assessment and plan: Pathologic fractures in femur and pelvis?Dr. Gasca is available to take him to surgery tomorrow to surgically fixate his femurs if patient chooses this direction. Presently the plan is to obtain better pain control tonight and make this decision in the morning. Norm does get confused when making decisions so this is not unusual for him. Pain control he was visibly shaking when I was in the room. I am going to ask pharmacy to get the morphine equivalent with his fentanyl patches. This will not happen until morning. Tonight I am going to increase his morphine drip while leaving his patch is in place. Tomorrow morning Dr. Thomas will be taking over his care and with the conversion from the pharmacy will hopefully be able to stop the patches. Nursing has asked that I increase his Ativan to 1 mg hourly We will stop his Eliquis. Again it appears that is due to saphenous vein thrombosis. This can be resumed after surgery if appropriate. PlEASE NOTE THE LAST LINE OF THE hpi i STATED IT WAS DUE TO fACTOR v lEIDEN WHICH WAS INCORRECT BUT i COULD NOT CHANGE THIS DUE TO COMPUTER PROBLEM. Continue the quetiapine TID. Also will add in Haldol as needed. Continue meds for constipation, muscle spasms, nausea, prn Will also leave the fentanyl patches (total 275mcg) on until tomorrow AM History of Present Illness History of Present Illness Chief Complaint: Pain Please note: I COULD NOT REMOVE THE LAST LINE OF MY DICTATION IN THE HPI DUE TO A COMPUTER PROBLEM. HE DOES NOT HAVE FACTOR V LEIDEN, BUT A GREATER SAPHANOUS VEIN THROMBOSIS. Narrative: Norm is a 66-year-old man who is on hospice due to multiple myeloma. He states that for the last 9 months he has not slept in bed because of the pain. The pain has been severe and unending .he states that anything that has been done to date has not resulted in comfort. Unfortunately this morning he fell, due to concern about fracture was transferred to the ER. In the ER he was found to have pathologic fractures in both femurs and his pelvis. He states that he is in pain but has been for months. I did talk with him in the ER by telephone and he was clear that he did not want to go to the OR for some surgical fixation. He felt his time was limited in what he wanted most of was pain control Dr. Gasca had looked at the films and felt strongly that Norm could be more comfortable and also better cared for if he had his femurs surgically stabilized. I met with Norm this evening and he wanted most of all was pain control. I discussed the option of obtaining pain control overnight and then making a decision in the morning. I also spoke to Dr. Gasca about this and all agreed that we would work on pain control and then make a decision later tomorrow as to whether or not he would want to endure an operation. Dr. Gasca was forthright with the risks of this operation and did explain to him that he could on the table. Norm also states that he would be surprised if anybody would take him to the OR considering the shape he was in. He states that he has nothing to live for anymore. He has no family and his father will be dying soon. He does not care if he lives or dies, but just wants to be comfortable. He is presently on Eliquis because of factor V Leiden Review of Systems Narrative: He is lying in bed and states that he is very thirsty. He asks repeatedly for water. He states that his jaw hurts and he thinks it is because of multiple myeloma. There were some plans to get a dental appointment outpatient Breathing is sometimes difficult for him. He does have some GI complaints as his abdomen has been hurting him for months. He does state that he is anxious at times. Staff states that he can flip-flop at times. Pain has been very difficult to control. Hospice has been working with him on this. 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 GI Screening EGD 07/28/15: no evidence of varices MELD: 7 (as of 04/10/2017) Should have influenza vaccination annually & pneumonia vaccination [id number] Confusion Depression (08/06/15) Sertraline in the past Encounter for hospice care discussion Essential hypertension 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 --> tx as DVT w/ indefinite anticoagulation due to cancer Hepatic encephalopathy (07/26/15) Hepatitis C (05/12/15) Genotype 2, s/p tx 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 Hematology 11/17/20 bone disease progression,extensive. 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 GI Renal cyst, left (06/01/15) abd US 05/31/15 Vitamin D deficiency (03/07/16) Surgical History Colectomy (08/20/05) fistula repair-pt unsure of exact date Colonoscopy - MAC (06/04/15) LIZETTE elbow surgery reattached tendon R knee surgery osteochondritis desicans L knee 1974 meniscus surgery L 1998 ORIF and cementing pathologic proximal humerus fracture (09/05/17) [facility] Dr. Mathis shoulder surgery L shoulder Status post cataract extraction and insertion of intraocular lens of left eye (12/30/18) toe surgery torn tendon 2nd toe R foot Family History Grandfather Diabetes Mother , Suicide Mental disorder Father Multiple myeloma Advanced age Social History Smoking/Tobacco Use Status: Never Smoking risk assessment performed?: Yes Alcohol Intake: never Drug use: Daily Substance use type: former substance user and marijuana Details: Pt. has a history of illicit/recreational drug use, but states that he has been sober for 20 years. Pt. states that he smokes marijuana daily and has been smoking it for 50 years. 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 Pets and animals: No Current gender identity: male What is your relationship status?: never How often do you talk on the phone with friends or family?: once per week How often do you get together with friends or relatives?: never Panel score (0-1 are the most socially isolated patients): 0 What type of physical activity do you participate in: none and sedentary lifestyle Seatbelt use: always Water heater temp set <120 deg: Yes Working smoke detector in home: Yes Fire extinguisher in home: Yes Carbon monox detector in home: Yes Firearms in home: Yes Firearms unloaded and locked: Yes Do you feel safe at home: Yes Do you feel safe in your relationship?: Yes Additional Social history: Lives alone. No children, no siblings. Father reportedly still alive, age 95, living in [facility], with MM. Relies on MONICA Bran as his support person. Has poor memory lately. Gets confused. Hard for him to follow directions on medications, etc. Has a labile personality. Meds Allergies and Home Medications Allergies Allergy/AdvReac Type Severity Reaction Status Date / Time Sulfa (Sulfonamide Allergy Unknown told rx as Verified 05/09/21 11:23 Antibiotics) an infant Home Medications Medication Instructions Recorded Confirmed Type calcium carbonate 200 mg calcium 200 mg PO BID tab 08/05/20 05/09/21 History (500 mg) chewable tablet docusate sodium 100 mg capsule 100 mg PO BID PRN #60 cap 10/01/20 05/09/21 Rx magnesium citrate 150 - 300 ml PO DAILY PRN #296 ml 10/22/20 05/09/21 Rx prochlorperazine maleate 10 mg PO Q6H PRN 11/22/20 05/09/21 History [Compazine] bisacodyl 10 mg rectal suppository 10 mg HI DAILY PRN #12 ea 12/05/20 05/09/21 Rx sennosides [senna] 8.6 mg PO BID PRN 12/05/20 05/09/21 History Eliquis 5 mg PO BID #180 tab 12/07/20 05/09/21 Rx quetiapine 25 mg PO TID PRN PRN #10 tab 12/07/20 05/09/21 Rx clonazepam 1 mg tablet 1 mg PO BID #30 tab 12/09/20 05/09/21 Rx enalapril maleate 20 mg tablet 20 mg PO DAILY #90 tab-cap 12/09/20 05/09/21 Rx polyethylene glycol 3350 17 17 g PO DAILY #1020 g 12/16/20 05/09/21 Rx gram/dose oral powder acetaminophen 500 mg capsule 500 mg PO Q6H PRN #90 cap 02/10/21 05/09/21 Rx carisoprodol 350 mg tablet 350 mg PO QID PRN #90 tab MDD 02/23/21 05/09/21 Rx hospice morphine concentrate 100 mg/5 mL 5 - 20 mg PO Q1H PRN ml 02/23/21 05/09/21 History (20 mg/mL) oral solution morphine concentrate 100 mg/5 mL 5 - 20 mg PO Q1H PRN #30 ml MDD 02/23/21 05/09/21 Rx (20 mg/mL) oral solution hospice fentanyl 100 mcg/hr transdermal 1 patch TRANSDERMAL Q72H #10 ea 03/14/21 05/09/21 Rx patch MDD 200 mcg fentanyl 50 mcg/hr transdermal 1 patch TRANSDERMAL Q72H #5 ea MDD 04/19/21 05/09/21 Rx patch hospice fentanyl 25 mcg/hr transdermal 1 patch TRANSDERMAL Q72H #5 ea MDD 04/20/21 05/09/21 Rx patch 275 mcg magnesium oxide 400 mg (241.3 mg 800 mg PO DAILY #180 tab 04/29/21 05/09/21 Rx magnesium) tablet Exam Narrative Exam Narrative: Norm is lying in bed. He is sweating profusely. He states that he is tremulous. His heart is regular. Working breathing greatly diminished. Abdomen good bowel sounds but tender throughout. No rebound. His legs are large, edematous, oncomycosis of toenails. Results Xray - There is displaced fracture of the left femur which appears pathologic. Femoral head and neck appear intact. In addition, there is significant lucent area in the bone of the right hemipelvis, specifically the superior pubic ramus. Lytic involvement and probable pathologic fracture also evident at this level. Labs Result diagrams: 05/09/21 12:50 05/09/21 12:50 Labs: Laboratory Results - last 24 hr 05/09/21 05/09/21 05/09/21 12:15 12:50 12:50 WBC 9.04 RBC 4.11 L Hgb 12.4 L Hct 36.7 L MCV 89.3 MCH 30.2 MCHC 33.8 RDW 12.9 Plt Count 180 MPV 11.0 Immature Gran % 0.3 Neutrophils % 79.9 Lymphocytes % 11.3 Monocytes % 8.3 Eosinophils % 0.0 Basophils % 0.2 Nucleated RBC % 0 Absolute Neutrophils 7.22 H Absolute Lymphocytes 1.02 L Absolute Monocytes 0.75 Absolute Eosinophils 0.00 Absolute Basophils 0.02 PT INR APTT Sodium 138 Potassium 4.2 Chloride 104 Carbon Dioxide 26.7 Anion Gap 7.3 BUN 16 Creatinine 1.0 Estimated GFR/1.73 m2 >= 60.00 Glucose 172 H Calcium 9.4 Total Bilirubin 0.9 AST 90 H ALT 47 Alkaline Phosphatase 118 H Total Protein 7.0 Albumin 3.2 L COVID-19 Source Nasal/Nares SARS-CoV-2 (PCR) Negative Patient ABO/Rh Antibody Screen 05/09/21 05/09/21 12:50 12:50 WBC RBC Hgb Hct MCV MCH MCHC RDW Plt Count MPV Immature Gran % Neutrophils % Lymphocytes % Monocytes % Eosinophils % Basophils % Nucleated RBC % Absolute Neutrophils Absolute Lymphocytes Absolute Monocytes Absolute Eosinophils Absolute Basophils PT 11.2 H INR 1.1 APTT 24.7 Sodium Potassium Chloride Carbon Dioxide Anion Gap BUN Creatinine Estimated GFR/1.73 m2 Glucose Calcium Total Bilirubin AST ALT Alkaline Phosphatase Total Protein Albumin COVID-19 Source SARS-CoV-2 (PCR) Patient ABO/Rh A Positive Antibody Screen NEGATIVE Last Vital Signs Temp 98.4 F 05/09/21 14:16 Pulse 143 H 05/09/21 14:16 Resp 20 05/09/21 14:16 BP 110/71 05/09/21 14:16 Pulse Ox 97 05/09/21 14:16
--- NOTE | 2021-05-09 19:22 | W.ORTHOCONSU ---
Date of service: 05/09/21 Time of Service: 16:35 History of Present Illness History of Present Illness Chief Complaint: Bilateral Femur Fractures Narrative: Norm is a 66-year-old with known multiple myeloma. He is currently on hospice care. He has been diagnosed with severe, diffuse multiple myeloma which has been unresponsive to medications. He has refused bone marrow transplant. He has severe bone pain on daily basis and has been limited with any ambulation for many months now. At least the last 8 months he has had daily severe pain. He receives pain medications at home to try to minimize his pains on hospice care. He was standing up today when he felt both his legs snap and went to the ground. He is unable to stand. EMS was called and he was evaluated in the emergency department. It was there that he was diagnosed with bilateral femur fractures. He reports severe pain in both legs. He denies any break in the skin. He denies hitting his head. He seems a little unclear on the details leading up to this but it sounds like his ambulatory capacity was minimal. Consults Consult date: 05/09/21 Requesting physician: Arleth Castillo Consult Reason Bilateral Pathologic Femur Fractures Assessment and Plan Assessment and plan (1) Pathological fracture, right femur, initial encounter for fracture: Status: Acute (2) Pathological fracture, left femur, initial encounter for fracture: Status: Acute Assessment and plan: Norm is a 66year old male with known severe Multiple Myeloma reclacitrant to basic treatments. He is currently on hospice and just wants to be comfortable. He remarks that he doesn't plan on walking again. He also admits he knows that the end of life is near. His biggest concern is remaining comfortable. I spent some time revieweing the options of continuing to provide comfort measures through Hospice versus fixing the femurs with an intramedullary device to provide some support to allow for positionoing and hygiene. It would be unlikely given his known MM and his premorbid state that he would be able to walk again. However, fixing the femurs could provide some pain relief for positioning and hygiene but it may worsen the pain at first. Additionally, the complications of the surgery are quite high given his anticoagulation, multiple medical problems including Multiple Myeloma. It is imperative that he meets with the Palliative Care team to discuss the next steps. At this point, I would recommend we aim for pain control to see how things do. I would expect that fixation of the fractures will improve his status but it may not be right away. He is already at end of life with his disease process and I will leave the decision to proceed with surgery between him and the palliative care team. I will see him again in the morning to see how he is doing and to discuss this once more. 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, 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 Cirrhosis of liver (07/26/15) Due to hep C (s/p tx, see historical problems) & EtOH Followed by [facility] GI Screening EGD 07/28/15: no evidence of varices MELD: 7 (as of 04/10/2017) Should have influenza vaccination annually & pneumonia vaccination [id number] Confusion Depression (08/06/15) Sertraline in the past Encounter for hospice care discussion Essential hypertension 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 --> tx as DVT w/ indefinite anticoagulation due to cancer Hepatic encephalopathy (07/26/15) Hepatitis C (05/12/15) Genotype 2, s/p tx [facility] with SVR History of alcohol abuse 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 Hospice care patient admitted 12/05/20 Hypomagnesemia (03/20/16) Muscle cramps Insomnia Sleep Clinic [facility] C-PAP--not wearing December 2020 Lives alone Multiple myeloma not having achieved remission (09/13/17) 01/29/20 F/U with Dr Younger,[facility] Hematology 11/17/20 bone disease progression,extensive. 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 Obstructive sleep apnea syndrome, mild (07/26/17) unable to tolerate C Pap Ambien agreement through sleep clinic Other chronic pain (08/06/15) Multifactorial, attributed to chronic Hep C, h/o chikungunya infxn, & OA Palliative care patient Portal hypertension (01/20/16) EGD 07/2015 with recommendation to repeat in 2-3 years (07/2018) per [facility] GI Renal cyst, left (06/01/15) abd US 05/31/15 Vitamin D deficiency (03/07/16) Surgical History Colectomy (08/20/05) fistula repair-pt unsure of exact date Colonoscopy - MAC (06/04/15) LIZETTE elbow surgery reattached tendon R knee surgery osteochondritis desicans L knee 1973 meniscus surgery L 1998 ORIF and cementing pathologic proximal humerus fracture (09/05/17) [facility] Dr. Mathis shoulder surgery L shoulder Status post cataract extraction and insertion of intraocular lens of left eye (12/30/18) toe surgery torn tendon 2nd toe R foot Family History Grandfather Diabetes Mother , Suicide Mental disorder Father Multiple myeloma Advanced age Social History Smoking/Tobacco Use Status: Never Smoking risk assessment performed?: Yes Alcohol Intake: never Drug use: Daily Substance use type: former substance user and marijuana Details: Pt. has a history of illicit/recreational drug use, but states that he has been sober for 20 years. Pt. states that he smokes marijuana daily and has been smoking it for 50 years. 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 Pets and animals: No Current gender identity: male What is your relationship status?: never How often do you talk on the phone with friends or family?: once per week How often do you get together with friends or relatives?: never Panel score (0-1 are the most socially isolated patients): 0 What type of physical activity do you participate in: none and sedentary lifestyle Seatbelt use: always Water heater temp set <120 deg: Yes Working smoke detector in home: Yes Fire extinguisher in home: Yes Carbon monox detector in home: Yes Firearms in home: Yes Firearms unloaded and locked: Yes Do you feel safe at home: Yes Do you feel safe in your relationship?: Yes Additional Social history: Lives alone. No children, no siblings. Father reportedly still alive, age 95, living in [facility], with MM. Relies on MONICA nurse Manju Bran as his support person. Has poor memory lately. Gets confused. Hard for him to follow directions on medications, etc. Has a labile personality. Exam Narrative Exam Narrative: Sitting up in the hospital bed. Sleeping initially up on entrance in the room. Awakes easily. Alert and oriented to person and place. Appears slightly disheveled and unwell. In obvious pain. LLE is externally rotated and shortened. There is no break in the skin but there is notable swelling and some early ecchymosis. Thigh is compressible. No break in the skin. No open injury. RLE is externally rotated and shortened. Mild swelling. Pain along the thigh. No ecchymosis. No sign of open injury. Results Last Vital Signs Temp 36.9 C 05/09/21 14:16 Pulse 143 H 05/09/21 14:16 Resp 20 05/09/21 14:16 BP 110/71 05/09/21 14:16 Pulse Ox 97 05/09/21 14:16 Labs Result diagrams: 05/09/21 12:50 05/09/21 12:50 Labs: Laboratory Results - last 24 hr 05/09/21 05/09/21 05/09/21 12:15 12:50 12:50 WBC 9.04 RBC 4.11 L Hgb 12.4 L Hct 36.7 L MCV 89.3 MCH 30.2 MCHC 33.8 RDW 12.9 Plt Count 180 MPV 11.0 Immature Gran % 0.3 Neutrophils % 79.9 Lymphocytes % 11.3 Monocytes % 8.3 Eosinophils % 0.0 Basophils % 0.2 Nucleated RBC % 0 Absolute Neutrophils 7.22 H Absolute Lymphocytes 1.02 L Absolute Monocytes 0.75 Absolute Eosinophils 0.00 Absolute Basophils 0.02 PT INR APTT Sodium 138 Potassium 4.2 Chloride 104 Carbon Dioxide 26.7 Anion Gap 7.3 BUN 16 Creatinine 1.0 Estimated GFR/1.73 m2 >= 60.00 Glucose 172 H Calcium 9.4 Total Bilirubin 0.9 AST 90 H ALT 47 Alkaline Phosphatase 118 H Total Protein 7.0 Albumin 3.2 L COVID-19 Source Nasal/Nares SARS-CoV-2 (PCR) Negative Patient ABO/Rh Antibody Screen 05/09/21 05/09/21 12:50 12:50 WBC RBC Hgb Hct MCV MCH MCHC RDW Plt Count MPV Immature Gran % Neutrophils % Lymphocytes % Monocytes % Eosinophils % Basophils % Nucleated RBC % Absolute Neutrophils Absolute Lymphocytes Absolute Monocytes Absolute Eosinophils Absolute Basophils PT 11.2 H INR 1.1 APTT 24.7 Sodium Potassium Chloride Carbon Dioxide Anion Gap BUN Creatinine Estimated GFR/1.73 m2 Glucose Calcium Total Bilirubin AST ALT Alkaline Phosphatase Total Protein Albumin COVID-19 Source SARS-CoV-2 (PCR) Patient ABO/Rh A Positive Antibody Screen NEGATIVE Imaging Imaging Studies: X-ray of the bilateral knee and bilateral femur shows pathologic fractures of both the right and left midshaft of the femur. The right femur has a primary lytic focus at the level of the fracture. There is some angulation and mild shortening. The left femur is a longer oblique fracture with both blastic and lytic changes of the left femur. The left femur fracture has significant shortening.
--- NOTE | 2021-05-10 07:16 | NUR.NOTE ---
Nursing Note: At 06:56 hrs., Patient seen by 2 nurses during endorsement of dusky color, cold clammy extremities, not breathing, no pulse and, auscultated by other RN, fainted heart beat heard, repeated in few seconds until it stopped. At 0701 hrs. pronounced as .
--- NOTE | 2021-05-10 10:07 | W.PM.DDS ---
Date of service: 05/10/21 Time of Service: 07:07 Discharge Sum: Prov Provider Primary care physician: Olga Ramos Admitting clinician: Annmarie Burt Attending physician on admission: Annmarie Burt Consults: 05/09/21 14:12 Granulator Machine Operator Consult [CONS] Routine Consultation Status:: Follow-up needed Clarification:: Manage/follow per spec. Reason for consult:: Please visit to see if pt's end of life needs are being met Discharge Sum: Diag PCOD Cause of : Multiple myeloma Contributing Factors (1) Obstructive sleep apnea syndrome, mild: Discharge Sum: Summary Date and Time Admission Date: 05/09/2109/20/21 13:02 Date of : 05/10/21 Time of : 06:56 Summary Details: 66-year-old man with advancing multiple myeloma. He was on hospice and not expected to live long. He was in his home when he got up from the bed and fell. Due to concern for fractures he was transported to [facility]. He had pathologic fractures through both femurs and his pelvis. He was admitted to hospice for pain control. Dr. Gasca did discuss with both patient and myself the value of perhaps going to the OR to help pinning of fractures. Patient wanted to wait overnight, obtain better pain control and then make a decision. He was on a morphine pump which was increased according to need. I received a call at approximately 7:00 that he had at [phone] and pronounced at 701. Cause of multiple myeloma contributing factors pathologic fractures. I did call medical sales associate spoke with Bassam Williamson who discussed the case with me. He also contacted his supervisors and explained that I could do the certificate due to the cause of being natural. Additional Data Confirmation of as documented by pronouncing clinician: no pulse, no respirations and no heart sounds Family: contacted (by hospice) Attending/PCP notified?: No Was code activated?: No Autopsy requested?: No
== END 2021-05-10 06:56 | disposition expired | DRG 841 ==
LOC: ER 13:42 → MS 13:52
PROVIDERS: Student in an Organized Health Care Education/Training Program; Admitting Provider Family Medicine; Emergency Provider Student in an Organized Health Care Education/Training Program; PCP Nurse Practitioner Family; Visit Provider Family Medicine
DX: C90.00 Multiple myeloma not having achieved remission (principal); M84.552A Pathological fracture in neoplastic disease, left femur, initial encounter for fracture; M84.551A Pathological fracture in neoplastic disease, right femur, initial encounter for fracture; K76.6 Portal hypertension; M84.550A Pathological fracture in neoplastic disease, pelvis, initial encounter for fracture; I82.811 Embolism and thrombosis of superficial veins of right lower extremity; Z51.5 Encounter for palliative care; Z20.822 Contact with and (suspected) exposure to COVID-19; G47.33 Obstructive sleep apnea (adult) (pediatric); I10 Essential (primary) hypertension; W18.39XA Other fall on same level, initial encounter; F41.9 Anxiety disorder, unspecified; K70.30 Alcoholic cirrhosis of liver without ascites; B19.20 Unspecified viral hepatitis C without hepatic coma; F32.9 Major depressive disorder, single episode, unspecified; Z79.01 Long term (current) use of anticoagulants; F10.11 Alcohol abuse, in remission; E83.42 Hypomagnesemia; G47.00 Insomnia, unspecified; G89.29 Other chronic pain; E55.9 Vitamin D deficiency, unspecified; Z66 Do not resuscitate
CPT/HCPCS: 36415; 73552; 80053; 86850; 86900; 86901; 87635; 96374; 99285; 72170; 73560; 85025; 85610; 85730; J2060; J2270